=== PATIENT | male | born 1940 | race Caucasian/White ===

== ENCOUNTER → 2017-05-07 | Outpatient (CLI) | payer MEDICARE ==
--- NOTE | 2017-05-07 11:01 | PN ---
PROGRESS NOTE DATE OF SURGERY: 05/07/2017 A 76-year-old gentleman who had been followed in the sleep center for treatment of obstructive sleep apnea-hypopnea syndrome. He continued to use his CPAP equipment every night, replied that sometimes has leak from the mask. He is moving a lot during the night and sometimes his mask may go off the face. I checked patient's CPAP unit. Usage is 30 out of 30 nights for more than 4 hours. Average usage is 8.8 hours. Pressure 12 cm of water. Leak is 53 L per minute. Apnea- hypopnea index 2.9, which is in normal range. [place] Sleepiness Scale today is 4. MEDICATIONS: Losartan, omeprazole, amlodipine, simvastatin, latanoprost, vitamins, Advil, Aleve, Flonase. PHYSICAL EXAMINATION: GENERAL: During physical exam, patient in no distress. VITAL SIGNS BP148/76 , HR 82, RR 16, height 5 feet 11-1/2 inches, weight 226, BMI 31.0, temperature 98.0, oxygen saturation at room air 96%. HEENT PERRLA, EOMI, evaluation of oropharynx showed extremely low position of soft palate. Neck Supple, no JVD. Thyroid is not palpable. LUNGS Clear to percussion and to auscultation. Good air exchange. No wheezing or rhonchi. HEART S1, S2 regular. No murmurs, gallops, or rubs. ABDOMEN Slightly obese. EXTREMITIES No clubbing or cyanosis. VP GENETIC Awake, alert, and oriented X3. Cranial nerves 2 to 7 intact. There is no fasciculation or atrophy. noted. No focal deficits observed. IMPRESSION: 1. Obstructive sleep apnea-hypopnea syndrome. Patient demonstrated 100% compliance with treatment, benefitting from treatment. 2. Mild obesity, body mass index 31. 3. Hypertension. 4. Hyperlipidemia. 5. History of sinusitis. 6. History of acid reflux. 7. History of glaucoma with left eye. The patient has a leak from his nasal pillows according to machine reading. I checked the nasal pillows. It looks like that the fitting is good. PLAN: 1. Continue treatment with CPAP every night for the whole night. 2. Prescription for CPAP supplies including nasal pillow mask, tube filters and I will prescribe also trial with a chinstrap. 3. We could try different styles of the nasal pillow in different sizes. 4. No driving if feeling any sleepiness. Thank you very much for allowing me to participate in the management of your patient. Sincerely, Juancho Florian MD, PhD, FAASM Diplomat of [place] [employer] [place] [employer] [facility] [place] MMODL / CURT: [id number] /
== END | disposition home or self-care (01) ==
LOC: SLEEP 09:53
PROVIDERS: ATTEND Internal Medicine
DX: G47.33 Obstructive sleep apnea (adult) (pediatric) (principal); E66.9 Obesity, unspecified; I10 Essential (primary) hypertension; Z68.31 Body mass index [BMI] 31.0-31.9, adult; Z79.1 Long term (current) use of non-steroidal anti-inflammatories (NSAID); Z79.899 Other long term (current) drug therapy

== ENCOUNTER → 2018-06-03 | Outpatient (CLI) | payer MEDICARE ==
--- NOTE | 2018-06-03 10:53 | SFUN ---
SLEEP CENTER FOLLOW UP NOTE DATE OF SERVICE: 06/03/2018 This 77-year-old gentleman has been followed in sleep center for treatment of obstructive sleep apnea-hypopnea syndrome. The patient successfully continued to use his CPAP equipment without significant problems related to mask, humidification or pressure. [place] Sleepiness Scale today is 7. Previous visit 1 year ago. I checked his CPAP unit. CPAP pressure is 12 cm of water. Usage is 100% of the time more than 4 hours, average 8.6 hours per night. Leak up to 32 L/minute, which is borderline. Apnea-hypopnea index only 2.5, which is perfect. Leak during the previous visit was high significantly. MEDICATIONS: Medications are the same, losartan, omeprazole amlodipine, simvastatin, latanoprost, Aleve, Advil, Flonase, vitamin supplements. PHYSICAL EXAMINATION: During physical exam, patient in no distress. VITAL SIGNS: BP 138/72, HR 77, RR 18, height 5 feet 11-1/2 inches, weight 229.8, three pounds more than 1 year ago, body mass index 31.4, temperature 97.2, oxygen saturation room air 95%. HEENT: PERRLA, EOMI. Oropharynx extremely low position of soft palate. NECK: Supple, no JVD. Thyroid is not palpable. LUNGS: Clear to percussion and to auscultation. Good air exchange. No wheezing or rhonchi. HEART: S1, S2 regular. No murmurs, gallops, or rubs. ABDOMEN: Slightly obese. EXTREMITIES: No clubbing or cyanosis. JEWELRY MAKER: Awake, alert, and oriented X3. Cranial nerves 2 to 7 intact. There is no fasciculation or atrophy. noted. No focal deficits observed. IMPRESSION: 1. Obstructive sleep apnea-hypopnea syndrome. The patient demonstrated 100% compliance with treatment benefitting from treatment. 2. Hypertension. 3. Mild obesity. 4. Hyperlipidemia. 5. History of acid reflux. 6. History of sinusitis. 7. History of glaucoma on the left side. PLAN: 1. Continue treatment with CPAP at night for the whole night. 2. Watching and losing weight. 3. Sleep hygiene with regular time in bed for at least 7-1/2 or 8 hours. 4. No driving if feeling any sleepiness. 5. Will maintain prescription for all necessary CPAP supplies including mask, tube, filters. 6. Follow-up visit in one year. Thank you very much for allowing me to participate in management of your patient. Sincerely, Juancho Florian MD, PhD, FAASM Diplomat of [place] [employer] Commercial Correspondent of [facility] [place] MMODL / CURT: [id number] /
== END | disposition home or self-care (01) ==
LOC: SLEEP 09:50
PROVIDERS: ATTEND Internal Medicine
DX: G47.33 Obstructive sleep apnea (adult) (pediatric) (principal); I10 Essential (primary) hypertension; E66.9 Obesity, unspecified; E78.5 Hyperlipidemia, unspecified; Z68.31 Body mass index [BMI] 31.0-31.9, adult; Z87.19 Personal history of other diseases of the digestive system; Z87.09 Personal history of other diseases of the respiratory system; Z86.69 Personal history of other diseases of the nervous system and sense organs; Z99.89 Dependence on other enabling machines and devices; Z79.51 Long term (current) use of inhaled steroids; Z79.1 Long term (current) use of non-steroidal anti-inflammatories (NSAID); Z79.899 Other long term (current) drug therapy

== ENCOUNTER → 2019-06-16 | Outpatient (CLI) | payer MEDICARE ==
--- NOTE | 2019-06-16 11:43 | SFUN ---
SLEEP CENTER FOLLOW UP NOTE DATE OF SERVICE: 06/16/2019 This 78-year-old gentleman had been followed in sleep center for treatment of obstructive sleep apnea-hypopnea syndrome. The patient continued to use his CPAP equipment every night for the whole night. According to his , he does not snore with the machine. [place] Sleepiness Scale today is 3. The patient mentioned that when he wakes up in the morning, he feels that his mouth is dry. I checked CPAP unit. CPAP pressure is 12 cm of water. Usage is 100% of nights more than 4 hours with average usage 9 hours per night. Leak is slightly high for the nasal mask 34 L/minute. Most probably may indicate possibility that patient opens his mouth. Apnea-hypopnea index is absolutely normal 2.3. MEDICATIONS: Losartan, omeprazole, amlodipine, latanoprost, simvastatin, Advil, Aleve, Flonase, vitamin supplements. PHYSICAL EXAMINATION: During physical exam, patient in no distress. VITAL SIGNS: BP 158/77, HR 77, RR 18, height 5 feet 11 inches, weight 232.8, which is about 2 pounds more than last year, temperature 98.2, oxygen saturation on room air 95%. HEENT: PERRLA, EOMI. Oropharynx extremely low soft palate. Mallampati 4. NECK: Supple, no JVD. Thyroid is not palpable. LUNGS: Clear to percussion and to auscultation. Good air exchange. No wheezing or rhonchi. HEART: S1, S2 regular. No murmurs, gallops, or rubs. ABDOMEN: Soft and nontender. Bowel sounds are present. No organomegaly appreciated. EXTREMITIES: No clubbing or cyanosis. METAL ENGINEERING PROCESS WORKER: Awake, alert, and oriented X3. Cranial nerves 2 to 7 intact. There is no fasciculation or atrophy. noted. No focal deficits observed. IMPRESSION: 1. Obstructive sleep apnea-hypopnea syndrome, on full control with CPAP. Patient demonstrated 100% compliance with treatment benefitting from treatment. 2. Slightly high leak documented by reading from the machine, possibly indicate opening mouth. Patient also feels dry mouth in the morning. 3. Hypertension. 4. Hyperlipidemia. 5. Mild obesity. 6. History of acid reflux. 7. History of sinusitis. 8. History of glaucoma on the left side. PLAN: 1. Patient will continue to use CPAP equipment every night for the whole night with the same level of pressure. 2. Prescription for chin strap. 3. I will maintain all necessary prescriptions for CPAP supplies including mask, tube, filters. 4. Losing weight. 5. Sleep hygiene with regular time in bed for at least 7-1/2 hours. 6. No driving if feeling any sleepiness. 7. Follow-up visit in 1 year or earlier if patient has any problems. Thank you very much for allowing me to participate in management of your patient. Sincerely, Juancho Florian MD, PhD, FAASM Diplomat of [place] [employer] [employer] Medicine Dismantler of [facility] [place] MMODL / IJN: [id number] /
== END | disposition home or self-care (01) ==
LOC: SLEEP 10:45
PROVIDERS: ATTEND Internal Medicine
DX: G47.33 Obstructive sleep apnea (adult) (pediatric) (principal); I10 Essential (primary) hypertension; E78.5 Hyperlipidemia, unspecified; E66.9 Obesity, unspecified; Z87.19 Personal history of other diseases of the digestive system; Z87.09 Personal history of other diseases of the respiratory system; Z86.69 Personal history of other diseases of the nervous system and sense organs; Z99.89 Dependence on other enabling machines and devices; Z79.1 Long term (current) use of non-steroidal anti-inflammatories (NSAID); Z79.51 Long term (current) use of inhaled steroids; Z79.899 Other long term (current) drug therapy

== ENCOUNTER → 2020-06-28 | Outpatient (CLI) | payer MEDICARE ==
--- NOTE | 2020-06-29 00:52 | SFUN ---
SLEEP CENTER FOLLOW UP NOTE DATE OF SERVICE: 06/28/2020 This 79-year-old gentleman who has been followed in Sleep Center for treatment of obstructive sleep apnea-hypopnea syndrome. The patient successfully continuing to use his CPAP equipment every night for the whole night. Sleeps quite well with the machine. [place] Sleepiness Scale is only 3. I checked CPAP unit. CPAP pressure is 12 cm of water. Usage is 30 out of 30 nights for more than 4 hours. Average usage 8.7 hours per night. Leak is 54 L/minute. Patient explained that sometimes his mask move out slightly, but at the same time, apnea- hypopnea index is perfect only 2.1. MEDICATIONS: Simvastatin 20 mg once a day, omeprazole 40 mg once a day, 20 mg once a day, amlodipine 10 mg once a day, latanoprost 2.5 mL ophthalmic solution, gabapentin 300 mg once a day. PHYSICAL EXAMINATION: GENERAL: Patient in no distress. VITAL SIGNS: BP 158/75, HR 83, RR 15, height 6 feet and 1/4 inch, weight 230 pounds BMI 31.0, temperature 98.2, oxygen saturation at room air 93%. HEENT: PERRLA, EOMI. Oropharynx extremely low position of soft palate. Mallampati 4. NECK: Supple, no JVD. Thyroid is not palpable. LUNGS: Clear to percussion and to auscultation. Good air exchange. No wheezing or rhonchi. HEART: S1, S2 regular. No murmurs, gallops, or rubs. ABDOMEN: Slightly obese. EXTREMITIES: No clubbing or cyanosis. FIG CAPRIFIER: Awake, alert, and oriented X3. Cranial nerves 2 to 7 intact. There is no fasciculation or atrophy. noted. No focal deficits observed. IMPRESSION: 1. Obstructive sleep apnea-hypopnea syndrome. Patient demonstrated 100% compliance with treatment, benefitting from treatment. 2. Hypertension. 3. Hyperlipidemia. 4. Mild obesity. 5. Acid reflux. 6. History of sinusitis. 7. History of glaucoma on the left side. PLAN: 1. Patient will continue to use PAP equipment every night for the whole night. 2. Sleep hygiene with regular time in bed for at least 7-1/2 to 8 hours. 3. Precautions related to driving. No driving if feeling sleepiness. 4. I will maintain all necessary prescription for PAP supplies including mask, tube, filters. 5. Watching weight. 6. No driving if feeling sleepiness. 7. Follow-up visit in 6 months or earlier if patient has any problems. Thank you very much for allowing me to participate in management of your patient. Sincerely, Juancho Florian MD, PhD, FAASM Diplomat of [place] [employer] [employer] Internal Medicine Business Operations Director of [facility] [place] MMODL / IJN: [id number] /
== END | disposition home or self-care (01) ==
LOC: SLEEP 15:45
PROVIDERS: ATTEND Internal Medicine Critical Care Medicine
DX: G47.33 Obstructive sleep apnea (adult) (pediatric) (principal); I10 Essential (primary) hypertension; E78.5 Hyperlipidemia, unspecified; E66.9 Obesity, unspecified; K21.9 Gastro-esophageal reflux disease without esophagitis; Z87.09 Personal history of other diseases of the respiratory system; Z99.89 Dependence on other enabling machines and devices; Z79.899 Other long term (current) drug therapy; Z86.69 Personal history of other diseases of the nervous system and sense organs

== ENCOUNTER → 2021-01-03 | Outpatient (CLI) | payer MEDICARE ==
--- NOTE | 2021-01-03 19:46 | SFUN ---
SLEEP CENTER FOLLOW UP NOTE DATE OF SERVICE: 01/03/2021 This 80-year-old gentleman has been followed in Sleep Center for treatment of obstructive sleep apnea-hypopnea syndrome. The patient continues to use his CPAP equipment every night. According to his , he does not snore. He sleeps well. Sometimes she hears some high-pitched noise while the patient is using CPAP equipment, possibly just exhalation port, which could be a normal part of the treatment. [place] Sleepiness Scale is 3, which is totally normal. I checked his CPAP unit. CPAP pressure is 12 cm of water. Usage is 30/30 nights, average 8.4 hours per night. Leak is 50 L/minute. Apnea-hypopnea index is 2.0, which is normal. The patient is using a nasal mask and possibly opens his mouth during sleep. He tried a chinstrap before and does not want to use it; feels more comfortable without that. MEDICATIONS: 1. Simvastatin 20 mg once a day. 2. Omeprazole 40 mg once a day. 3. Amlodipine 10 mg once a day. 4. Latanoprost 2.5 mL ophthalmic solution. 5. Gabapentin 300 mg once a day. 6. Vitamins. 7. Advil as necessary. PHYSICAL EXAMINATION: GENERAL: A pleasant patient in no distress. VITAL SIGNS: BP 153/78, HR 64, RR 15, height 6 feet 1 inch, weight 229.6, body mass index 30.2, temperature 98.4, oxygen saturation at room air 95%. HEENT: PERRLA, EOMI. Evaluation of oropharynx showed tongue protrudes midline. Extremely low position of soft palate. Mallampati IV. NECK: Supple. No JVD. Thyroid is not palpable. LUNGS: Clear to percussion and to auscultation. Good air exchange. No wheezing or rhonchi. HEART: S1, S2 regular. No murmurs, gallops or rubs. ABDOMEN: Obese. EXTREMITIES: No clubbing or cyanosis. MARINE CHRONOMETER ASSEMBLER: Awake, alert, and oriented X3. Cranial nerves 2 to 7 intact. There is no fasciculation or atrophy. noted. No focal deficits observed. IMPRESSION: 1. Obstructive sleep apnea-hypopnea syndrome. The patient continues to use his CPAP equipment 100% of the time. Normal respiration on CPAP. Leak increased, but the patient prefers not to use a chinstrap, and it does not influence his respiration. 2. Hypertension. 3. Hyperlipidemia. 4. Mild obesity. 5. Acid reflux. 6. History of sinusitis. 7. History of glaucoma on the left side. PLAN: 1. Patient will continue to use PAP equipment every night for the whole night. 2. Sleep hygiene with regular time in bed for at least 7-1/2 to 8 hours. 3. Precautions related to driving. No driving if feeling sleepiness. 4. I will maintain all necessary prescription for PAP supplies including mask, tube, filters. 5. Watching weight. 6. Follow-up visit in 6 months or earlier if patient has any problems. Thank you very much for allowing me to participate in the management of your patient. Sincerely, Juancho Florian MD, PhD, FAASM Diplomat of [place] [employer] [employer] Jet [employer]ade Polisher of [facility] [place] MMODL / ARIELN: [id number] /
== END ==
LOC: SLEEP 14:21
PROVIDERS: ATTEND Internal Medicine
DX: G47.33 Obstructive sleep apnea (adult) (pediatric) (principal); I10 Essential (primary) hypertension; E78.5 Hyperlipidemia, unspecified; E66.9 Obesity, unspecified; K21.9 Gastro-esophageal reflux disease without esophagitis; Z86.69 Personal history of other diseases of the nervous system and sense organs; Z87.09 Personal history of other diseases of the respiratory system; Z79.899 Other long term (current) drug therapy; Z68.30 Body mass index [BMI] 30.0-30.9, adult

== ENCOUNTER 2021-04-07 09:59 | Inpatient (IN) | payer MEDICARE ==
[2021-04-07] MEDS ORDERED: SODIUM CHLORIDE 0.9% 1,000 ML IV STA (11:05)
--- NOTE | 2021-04-07 11:10 | ED ---
Weakness HPI - General Chief complaint: Weakness Stated complaint: weak/light headed Time Seen by Provider: 04/07/21 10:23 Source: patient Mode of arrival: ambulatory Limitations: no limitations - History of Present Illness Initial comments: The patient is an 80-year-old male with past history of hypertension and hyperlipidemia who presents to the emergency department with complaint of weakness. He does have a friend staying with him. He states that last night he began having the chills and was have difficulty sleeping all night. Friend noted that when he awoke this morning he was having difficulties ambulating. He was so weak that he was unable to get himself off the toilet. He called family who brought him to the emergency room for further evaluation. Admits to mild headache. No visual changes. No recent head trauma. Denies any neck pain or stiffness. Does admit to a mild cough and mild shortness of breath. No chest pain. No exposure to Covid. He denies any fevers. No nausea or vomiting. Denies any abdominal pain. No changes in his bowel or bladder habits. No other alleviating, precipitating or modifying factors - Related Data Home Medications Medication Instructions Recorded Confirmed Fluticasone Nasal [place] [Flonase 1 spr EA NOSTRIL DAILY PRN 04/07/21 04/07/21 Nasal [place]] Gabapentin [Neurontin] 400 mg PO BID 04/07/21 04/07/21 Glucosamine/Chondr Magana A Sod [Osteo 1 tab PO DAILY 04/07/21 04/07/21 Bi-Flex [place]] Ibuprofen [Advil] 200 mg PO Q8HR PRN 04/07/21 04/07/21 Latanoprost [Xalatan 0.005%] 1 drop LEFT EYE HS 04/07/21 04/07/21 Montelukast [Singulair] 10 mg PO HS 04/07/21 04/07/21 Multivitamins, Thera [Multivitamin 1 tab PO DAILY 04/07/21 04/07/21 (formulary)] Naproxen Sodium [Aleve] 220 mg PO DAILY 04/07/21 04/07/21 Olmesartan Medoxomil 20 mg PO DAILY 04/07/21 04/07/21 [place]-3 Fatty Acids [[place]-3] 1,000 mg PO DAILY 04/07/21 04/07/21 Omeprazole 40 mg PO DAILY 04/07/21 04/07/21 Simvastatin [Zocor] 20 mg PO HS 04/07/21 04/07/21 amLODIPine [Norvasc] 10 mg PO DAILY 04/07/21 04/07/21 Allergies Allergy/AdvReac Type Severity Reaction Status Date / Time Penicillins Allergy Unknown Verified 04/07/21 13:17 Sulfa (Sulfonamide Allergy Unknown Verified 04/07/21 13:17 Antibiotics) Review of Systems ROS Statement: Those systems with pertinent positive or pertinent negative responses have been documented in the HPI. ROS Other: All systems not noted in ROS Statement are negative. Past Medical History Past Medical History: Hyperlipidemia, Hypertension History of Any Multi-Drug Resistant Organisms: None Reported Past Surgical History: No Surgical Hx Reported Past Psychological History: No Psychological Hx Reported Smoking Status: Former smoker Past Alcohol Use History: Occasional Past Drug Use History: None Reported General Exam Limitations: no limitations Course Vital Signs 04/07/21 04/07/21 04/07/21 10:11 11:30 12:00 Temperature 98.2 F Pulse Rate 92 80 74 Respiratory 18 22 22 Rate Blood Pressure 120/71 123/80 123/80 O2 Sat by Pulse 94 L 97 96 Oximetry 04/07/21 04/07/21 04/07/21 12:30 13:00 13:17 Temperature Pulse Rate 75 72 78 Respiratory 18 20 18 Rate Blood Pressure 118/69 118/69 129/72 O2 Sat by Pulse 94 L 93 L Oximetry 04/07/21 13:30 Temperature Pulse Rate 73 Respiratory 20 Rate Blood Pressure 129/72 O2 Sat by Pulse 97 Oximetry EKG Findings - EKG Comments: EKG Findings:: EKG demonstrates normal sinus rhythm with a ventricular rate of 82. When necessary interval 174. QRS 90. QTC of 411. No acute ST segment elevations. Minimal ST depression in V4 through V6 Medical Decision Making - Medical Decision Making Upon arrival patient is placed into room 1. There history of physical exam was performed. IV access is established the patient is given a liter bolus of normal saline. Laboratory studies were conducted. Covid swab is performed. Patient went for a chest x-ray. Laboratory studies are reviewed and white count is 33,000. D-dimer 1.17. Creatinine 1.3 with an unknown baseline. Urinalysis is negative. Covid not detected. Chest x-ray demonstrates mild cardiomegaly and mild pulmonary vascular congestion. Linear opacities in the lung bases, developing infiltrate cannot be excluded. On physical exam the patient does have redness and swelling to the right lower extremity for which the patient states he did not previously noticed. Ultrasound is performed which failed to demonstrate DVT. Patient is given a dose of Rocephin and azithromycin for possible community-acquired pneumonia and right lower extremity cellulitis. He is sent back for CT of his chest due to his elevated d-dimer which demonstrates no evidence of a pulmonary embolism. Findings suggestive of an interstitial lung disease. Ground glass nodularity in the right upper lobe. These results are discussed with the patient. Recommend admission due to the leukocytosis for which the patient did agree to. I spoke with Dr. Parnell who wants a covid PCR. Patient remained in stable condition awaiting transfer to floor - Lab Data Result diagrams: 04/07/21 11:10 04/07/21 11:10 Lab Results 04/07/21 04/07/21 04/07/21 Range/Units 11:10 11:10 11:10 WBC 33.0 H (3.8-10.6) k/uL RBC 4.50 (4.30-5.90) m/uL Hgb 15.9 (13.0-17.5) gm/dL Hct 44.1 (39.0-53.0) % MCV 98.0 (80.0-100.0) fL MCH 35.3 H (25.0-35.0) pg MCHC 36.0 (31.0-37.0) g/dL RDW 13.2 (11.5-15.5) % Plt Count 284 (150-450) k/uL MPV 7.6 Neutrophils % 89 % Lymphocytes % 4 % Monocytes % 5 % Eosinophils % 1 % Basophils % 0 % Neutrophils # 29.4 H (1.3-7.7) k/uL Lymphocytes # 1.2 (1.0-4.8) k/uL Monocytes # 1.7 H (0-1.0) k/uL Eosinophils # 0.2 (0-0.7) k/uL Basophils # 0.1 (0-0.2) k/uL PT 10.6 (9.0-12.0) sec INR 1.0 (<1.2) APTT 24.3 (22.0-30.0) sec D-Dimer 1.17 H (<0.60) mg/L FEU Sodium (137-145) mmol/L Potassium (3.5-5.1) mmol/L Chloride (98-107) mmol/L Carbon Dioxide (22-30) mmol/L Anion Gap mmol/L BUN (9-20) mg/dL Creatinine (0.66-1.25) mg/dL Est GFR (CKD-EPI)AfAm (>60 ml/min/1.73 sqM) Est GFR (CKD-EPI)NonAf (>60 ml/min/1.73 sqM) Glucose (74-99) mg/dL Plasma Lactic Acid Andrey (0.7-2.0) mmol/L Calcium (8.4-10.2) mg/dL Magnesium (1.6-2.3) mg/dL Total Bilirubin (0.2-1.3) mg/dL AST (17-59) U/L ALT (4-49) U/L Alkaline Phosphatase (38-126) U/L Creatine Kinase (55-170) U/L Troponin I (0.000-0.034) ng/mL NT-Pro-B Natriuret Pep pg/mL Total Protein (6.3-8.2) g/dL Albumin (3.5-5.0) g/dL Urine Color Urine Appearance (Clear) Urine pH (5.0-8.0) Ur Specific [place] (1.001-1.035) Urine Protein (Negative) Urine Glucose (UA) (Negative) Urine Ketones (Negative) Urine Blood (Negative) Urine Nitrite (Negative) Urine Bilirubin (Negative) Urine Urobilinogen (<2.0) mg/dL Ur Leukocyte Esterase (Negative) Coronavirus (PCR) Not Detected (Not Detectd) 04/07/21 04/07/21 04/07/21 Range/Units 11:10 11:10 11:10 WBC (3.8-10.6) k/uL RBC (4.30-5.90) m/uL Hgb (13.0-17.5) gm/dL Hct (39.0-53.0) % MCV (80.0-100.0) fL MCH (25.0-35.0) pg MCHC (31.0-37.0) g/dL RDW (11.5-15.5) % Plt Count (150-450) k/uL MPV Neutrophils % % Lymphocytes % % Monocytes % % Eosinophils % % Basophils % % Neutrophils # (1.3-7.7) k/uL Lymphocytes # (1.0-4.8) k/uL Monocytes # (0-1.0) k/uL Eosinophils # (0-0.7) k/uL Basophils # (0-0.2) k/uL PT (9.0-12.0) sec INR (<1.2) APTT (22.0-30.0) sec D-Dimer (<0.60) mg/L FEU Sodium 136 L (137-145) mmol/L Potassium 4.6 (3.5-5.1) mmol/L Chloride 103 (98-107) mmol/L Carbon Dioxide 23 (22-30) mmol/L Anion Gap 10 mmol/L BUN 18 (9-20) mg/dL Creatinine 1.30 H (0.66-1.25) mg/dL Est GFR (CKD-EPI)AfAm 60 (>60 ml/min/1.73 sqM) Est GFR (CKD-EPI)NonAf 52 (>60 ml/min/1.73 sqM) Glucose 118 H (74-99) mg/dL Plasma Lactic Acid Andrey 1.8 (0.7-2.0) mmol/L Calcium 9.6 (8.4-10.2) mg/dL Magnesium 1.9 (1.6-2.3) mg/dL Total Bilirubin 0.8 (0.2-1.3) mg/dL AST 45 (17-59) U/L ALT 33 (4-49) U/L Alkaline Phosphatase 105 (38-126) U/L Creatine Kinase 174 H (55-170) U/L Troponin I (0.000-0.034) ng/mL NT-Pro-B Natriuret Pep pg/mL Total Protein 6.9 (6.3-8.2) g/dL Albumin 4.1 (3.5-5.0) g/dL Urine Color Yellow Urine Appearance Clear (Clear) Urine pH 6.5 (5.0-8.0) Ur Specific [place] 1.019 (1.001-1.035) Urine Protein Negative (Negative) Urine Glucose (UA) Negative (Negative) Urine Ketones Negative (Negative) Urine Blood Negative (Negative) Urine Nitrite Negative (Negative) Urine Bilirubin Negative (Negative) Urine Urobilinogen <2.0 (<2.0) mg/dL Ur Leukocyte Esterase Negative (Negative) Coronavirus (PCR) (Not Detectd) 04/07/21 04/07/21 Range/Units 11:10 11:10 WBC (3.8-10.6) k/uL RBC (4.30-5.90) m/uL Hgb (13.0-17.5) gm/dL Hct (39.0-53.0) % MCV (80.0-100.0) fL MCH (25.0-35.0) pg MCHC (31.0-37.0) g/dL RDW (11.5-15.5) % Plt Count (150-450) k/uL MPV Neutrophils % % Lymphocytes % % Monocytes % % Eosinophils % % Basophils % % Neutrophils # (1.3-7.7) k/uL Lymphocytes # (1.0-4.8) k/uL Monocytes # (0-1.0) k/uL Eosinophils # (0-0.7) k/uL Basophils # (0-0.2) k/uL PT (9.0-12.0) sec INR (<1.2) APTT (22.0-30.0) sec D-Dimer (<0.60) mg/L FEU Sodium (137-145) mmol/L Potassium (3.5-5.1) mmol/L Chloride (98-107) mmol/L Carbon Dioxide (22-30) mmol/L Anion Gap mmol/L BUN (9-20) mg/dL Creatinine (0.66-1.25) mg/dL Est GFR (CKD-EPI)AfAm (>60 ml/min/1.73 sqM) Est GFR (CKD-EPI)NonAf (>60 ml/min/1.73 sqM) Glucose (74-99) mg/dL Plasma Lactic Acid Andrey (0.7-2.0) mmol/L Calcium (8.4-10.2) mg/dL Magnesium (1.6-2.3) mg/dL Total Bilirubin (0.2-1.3) mg/dL AST (17-59) U/L ALT (4-49) U/L Alkaline Phosphatase (38-126) U/L Creatine Kinase (55-170) U/L Troponin I 0.023 (0.000-0.034) ng/mL NT-Pro-B Natriuret Pep 380 pg/mL Total Protein (6.3-8.2) g/dL Albumin (3.5-5.0) g/dL Urine Color Urine Appearance (Clear) Urine pH (5.0-8.0) Ur Specific [place] (1.001-1.035) Urine Protein (Negative) Urine Glucose (UA) (Negative) Urine Ketones (Negative) Urine Blood (Negative) Urine Nitrite (Negative) Urine Bilirubin (Negative) Urine Urobilinogen (<2.0) mg/dL Ur Leukocyte Esterase (Negative) Coronavirus (PCR) (Not Detectd) Disposition Clinical Impression: Acute respiratory insufficiency, CAP (community acquired pneumonia), Leukocytosis Disposition: [facility] Condition: Stable Is patient prescribed a controlled substance at d/c from ED?: No Decision to Admit Reason: Admit from EC Decision Date: 04/07/21 Decision Time: 14:20
[2021-04-07 11:23] LABS: Basophils # (A) 0.1 k/uL (0-0.2); Basophils % (A) 0 %; Eosinophils # (A) 0.2 k/uL (0-0.7); Eosinophils % (A) 1 %; HCT 44.1 % (39.0-53.0); HGB 15.9 gm/dL (13.0-17.5); Lymphocytes # (A) 1.2 k/uL (1.0-4.8); Lymphocytes % (A) 4 %; MCH 35.3 pg (25.0-35.0); Mean Platelet Volume 7.6; Monocytes # (A) 1.7 k/uL (0-1.0); Monocytes % (A) 5 %; Neutrophils # (A) 29.4 k/uL (1.3-7.7); Neutrophils % (A) 89 %; Platelet Count 284 k/uL (150-450); RDW 13.2 % (11.5-15.5)
[2021-04-07 11:33] LABS: Albumin 4.1 g/dL (3.5-5.0); Calcium 9.6 mg/dL (8.4-10.2); Magnesium 1.9 mg/dL (1.6-2.3); Potassium 4.6 mmol/L (3.5-5.1); Total Bilirubin 0.8 mg/dL (0.2-1.3); Total Protein 6.9 g/dL (6.3-8.2)
[2021-04-07 11:37] LABS: Partial Thromboplastin Time 24.3 sec (22.0-30.0); Prothrombin Time 10.6 sec (9.0-12.0)
--- NOTE | 2021-04-07 12:12 | XR ---
EXAMINATION TYPE: XR chest 2V DATE OF EXAM: 04/07/2021 COMPARISON: NONE HISTORY: 80 years Male. STUDY INDICATION GIVEN: Weakness . TECHNIQUE: PA and lateral chest radiographs FINDINGS AND IMPRESSION: There is mild cardiomegaly and mild pulmonary vascular congestion. Linear opacities in the lung bases seen likely on the basis of atelectasis though a developing infilt rate cannot be entirely excluded. No pneumothorax or pleural effusion seen. Generalized osteopenia. No acute osseous abnormality.
--- NOTE | 2021-04-07 12:58 | US ---
EXAMINATION TYPE: US venous doppler duplex LE RT DATE OF EXAM: 04/07/2021 11:56 AM COMPARISON: NONE CLINICAL HISTORY: swelling, redness. EC patient with ankle edema and skin redness noted today. SIDE PERFORMED: Right TECHNIQUE: The lower extremity deep venous system is examined utilizing real time linear array sonog ana with graded compression, doppler sonography and color-flow sonography. VESSELS IMAGED: Common Femoral Vein Deep Femoral Vein Femoral Vein Popliteal Vein Proximal Calf Veins Right Leg: Negative for DVT. Ankle edema channels are noted. Right groin lymph node is imaged = 3.0 x 1.6 x 0.9cm. IMPRESSION: 1. NO SONOGRAPHIC EVIDENCE OF DEEP VEIN THROMBOSIS IN THE RIGHT LOWER EXTREMITY. 2. PROMINENT LYMPH NODE IN THE RIGHT GROIN LIKELY REACTIVE, CORRELATE CLINICALLY. 3. SOFT TISSUE EDEMA POSTERIOR TO THE ANKLE JOINT. CORRELATE CLINICALLY FOR SOFT TISSUE INFECTION.
[2021-04-07] MEDS ORDERED: cefTRIAXone IN SWFI 1,000 MG/10 ML SYRINGE IVP STA (13:15)
[2021-04-07] MEDS ORDERED: AZITHROMYCIN 500 MG TAB PO STA (13:15)
[2021-04-07 13:40] LABS: Appearance,Urine Clear (Clear); Bilirubin,Urine Negative (Negative); Blood,Urine Negative (Negative); Color,Urine Yellow; Glucose,Urine (UA) Negative (Negative); Ketones,Urine Negative (Negative); Leukocyte Esterase,Urine Negative (Negative); Nitrite,Urine Negative (Negative); PH, Urine 6.5 (5.0-8.0); Protein,Urine Negative (Negative); Specific Gravity,Urine 1.019 (1.001-1.035); Urobilinogen,Urine <2.0 mg/dL (<2.0)
--- NOTE | 2021-04-07 14:04 | CT ---
EXAMINATION TYPE: CT chest angio for PE DATE OF EXAM: 04/07/2021 12:59 PM COMPARISON: Limited comparison CT abdomen dated 09/06/2010 HISTORY: Elevated D-dimer CT DLP: 488.60 mGycm Automated exposure control for dose reduction was used. TECHNIQUE: CT angiogram chest for pulmonary embolism. Performed without and with IV Contrast, patient injected with 100 ml mL of Isovue 370. FINDINGS: Opacification of the main pulmonary trunk is adequate. No filling defects are seen in the pulmonary a rteries. There are subpleural peripheral honeycombing cystic reticular changes with septal thickening. There i s upper and lower lobe with lower lobe predominant bronchiectatic changes. 6 mm groundglass nodularit y is seen in the right upper lobe series 406 image 51 series 402 image 69. Mild pleural thickening in the left lower lobe series 406 image 120. There is an enlarged subcarinal lymph node measuring 2.4 x 1.4 cm. Multiple additional prominent lymp h nodes are seen in the mediastinum. No hilar lymphadenopathy identified. The heart is not enlarged. There is no pericardial effusion. The diameter of the main pulmonary arter y is approximately 3.5 cm. The intrathoracic aorta is normal in course and caliber. Multiple calcifications are seen in the gallbladder lumen. A small gastroesophageal hernia is noted. No aggressive osseous lesion seen. Degenerative changes are seen in the thoracic spine. IMPRESSION: 1. NO EVIDENCE OF ACUTE PULMONARY ARTERIAL EMBOLISM. MAIN PULMONARY ARTERY DIAMETER 3.5 CM SUGGESTS P ULMONARY ARTERIAL HYPERTENSION CORRELATE CLINICALLY. 2. 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 3. GROUNDGLASS NODULARITY IN THE RIGHT UPPER LOBE MEASURING 6 MM WITH LEFT LOWER LOBE PLEURAL THICKEN ING. ADDITION TO 2.4 X 1.4 CM MEDIASTINAL LYMPH NODE, MALIGNANCY CANNOT BE ENTIRELY RULED OUT. 4. GALLBLADDER CALCULI.
[2021-04-07] MEDS ORDERED: NALOXONE 0.4 MG/ML 1 ML VIAL IV PRN (14:22)
[2021-04-07] MEDS: SODIUM CHLORIDE 0.9% 1,000 ML IV SCH ×2 (14:25→23:40)
[2021-04-07] MEDS ORDERED: FLUTICASONE 50MCG/SPRAY NASAL 16GM EA NOSTRIL PRN (18:04)
[2021-04-07] MEDS ORDERED: IBUPROFEN 200 MG TAB PO PRN (18:04)
[2021-04-07] MEDS ORDERED: ALPRAZolam 0.25 MG TAB PO PRN (18:06)
[2021-04-07] MEDS ORDERED: ACETAMINOPHEN TAB 500 MG TAB PO PRN (18:06)
[2021-04-07] MEDS ORDERED: IPRATROPIUM-ALBUTEROL 3 ML NEB INHALATION PRN (18:06)
[2021-04-07] MEDS: IPRATROPIUM-ALBUTEROL 3 ML NEB INHALATION SCH (19:02)
--- NOTE | 2021-04-07 19:18 | HP ---
HISTORY AND PHYSICAL DATE OF SERVICE: 04/07/2021 CHIEF COMPLAINT: Shortness of breath and weakness and cough. HISTORY OF PRESENT ILLNESS: This 80-year-old gentleman with a past medical history of multiple medical problems, hyperlipidemia, hypertension, history of neuropathy, being followed by Dr. Unger in the outpatient setting, had had contact with some infected friends with respiratory infections recently. A friend from [place] is apparently staying and the patient and friend is up to date with Covid vaccines according to him and the patient is complaining of weakness and cough and sputum and some difficulty in ambulation. Patient came to [facility] and was found to have bilateral interstitial pneumonia, lower part, left more than the right, which was confirmed by CT scan. There is no evidence of any pulmonary embolism. Patient admitted for further evaluation and treatment. There is no history of fever, rigors or chills. No history of headache, loss of consciousness or seizures at this time. PAST MEDICAL HISTORY: History of hypertension, hyperlipidemia, history of peripheral neuropathy, history of nicotine dependence. MEDICATIONS: Home medications are Flonase, Aleve, Singulair, Advil, omega-3, multivitamins, Osteo Bi- Flex, omeprazole, Norvasc, Zocor, Xalatan, Neurontin. Doses are reviewed. ALLERGIES: PENICILLIN AND SULFA. FAMILY HISTORY: No history of heart disease or strokes in the family. SOCIAL HISTORY: Previous history of smoking. REVIEW OF SYSTEMS: ENT: Diminished vision. Diminished hearing. CARDIOVASCULAR: As mentioned earlier. RESPIRATORY: As mentioned earlier. GI no nausea or vomiting. : No dysuria. NERVOUS SYSTEM: As mentioned earlier. ALLERGY/IMMUNOLOGY: No asthma or hayfever. MUSCULOSKELETAL as mentioned earlier. HEMATOLOGY/ONCOLOGY: No history of anemia. ENDOCRINE: No diabetes or hypothyroidism. CONSTITUTIONAL: As mentioned earlier. DERMATOLOGY: Negative. RHEUMATOLOGY negative. PSYCHIATRY negative. PHYSICAL EXAMINATION: Alert and oriented times three. Pulse 74, blood pressure 139/71, respirations 16, temperature 98.2, pulse ox 97% on room air. HEENT: Conjunctivae normal. Oral mucosa moist. NECK is no jugular venous distention. No carotid bruit. No lymph node enlargement. CARDIOVASCULAR system: S1, S2 muffled. No S3, no S4. RESPIRATORY: Breath sounds diminished in the bases. Bilateral scattered rhonchi and basilar crackles. ABDOMEN: Soft, nontender. No mass palpable. LEGS: No edema. No swelling. NERVOUS SYSTEM: Higher functions as mentioned earlier. Moves all 4 limbs. No focal motor or sensory deficits. LYMPHATICS: No lymph nodes palpable in the neck, axillae or groin. SKIN: No ulcers, rashes or bleeding. JOINTS: No active deforming arthropathy. LABS: WBC 33, mostly neutrophils 29.4. D-dimer is 1.17. Sodium 136, creatinine is 1.30. ASSESSMENT: 1. Bilateral interstitial pneumonia possibly gram-negative possibly viral with Covid 19 test negative with possible sepsis present on admission. 2. Possible chronic obstructive pulmonary disease acute exacerbation. 3. Increased WBC possibly secondary to sepsis. 4. Monocytosis. 5. Elevated D-dimer without any evidence of pulmonary embolus. 6. Hyponatremia. 7. Increased creatinine with possibly chronic kidney disease stage 3. 8. Hypertension. 9. Hyperlipidemia. 10.History of peripheral neuropathy. 11.History of nicotine dependence. 12.FULL CODE. RECOMMENDATIONS AND DISCUSSION: In this 80-year-old gentleman who presented with multiple complex medical issues, we will monitor the patient closely. We will continue with empiric antibiotics bronchodilators. The Covid 19 test is negative. I would also recommend PCR testing also. Otherwise resume the rest of medication. DVT prophylaxis. Symptomatic treatment. Prognosis guarded because of multiple complex medical issues. Further recommendations to follow. A copy of this dictation is being forwarded to Dr. Unger who is the primary physician. MMSLYL / ARIELN: [id number] /
[2021-04-07] MEDS: HEPARIN SODIUM,PORCINE/PF 5,000 UNIT/0.5 ML SYRINGE SQ SCH (19:20)
[2021-04-07] MEDS: ATORVASTATIN 10 MG TAB PO SCH (19:20)
[2021-04-07] MEDS: GABAPENTIN 400 MG CAP PO SCH (19:20)
[2021-04-07] MEDS: MONTELUKAST 10 MG TAB PO SCH (19:20)
[2021-04-07] MEDS: LATANOPROST 0.005% OPHTH DROPS 2.5 ML BTL LEFT EYE SCH (21:03)
[2021-04-08] MEDS: GABAPENTIN 400 MG CAP PO SCH ×2 (08:50→21:36)
[2021-04-08] MEDS: NAPROXEN 250 MG TAB PO SCH (08:50)
[2021-04-08] MEDS: HEPARIN SODIUM,PORCINE/PF 5,000 UNIT/0.5 ML SYRINGE SQ SCH ×2 (08:50→21:36)
[2021-04-08] MEDS: PANTOPRAZOLE 40 MG TABLET PO SCH (08:50)
[2021-04-08] MEDS: amLODIPine 10 MG TAB PO SCH (08:50)
[2021-04-08] MEDS: SODIUM CHLORIDE 0.9% 1,000 ML IV SCH ×2 (08:51→16:41)
[2021-04-08] MEDS: MULTIVITAMINS, THERA 1 EACH TAB PO SCH (08:51)
[2021-04-08] MEDS: AZITHROMYCIN 500 MG TAB PO SCH (08:51)
[2021-04-08] MEDS: LOSARTAN 50 MG TAB PO SCH (08:51)
[2021-04-08 08:59] LABS: HGB 13.8 g/dL (13.0-17.0); MCH 33.4 pg (27.0-32.0); MCHC 33.7 g/dL (32.0-37.0); MCV 99.3 fL (80.0-97.0); Mean Platelet Volume 10.8 fL (9.5-12.2); Platelet Count 253 X 10*3/uL (140-440); RBC 4.13 X 10*6/uL (4.40-5.60); WBC 29.62 X 10*3/uL (4.50-10.00)
[2021-04-08] MEDS ORDERED: NON FORMULARY DRUG (Omega-3 Fatty Acids [Omega-3] 1,000 MG Capsule) PO SCH (09:00)
[2021-04-08] MEDS ORDERED: NON FORMULARY DRUG (Glucosamine/Chondr Su A Sod [Osteo Bi-Flex Caplet] 1 EACH Tablet) PO SCH (09:00)
[2021-04-08] MEDS: IPRATROPIUM-ALBUTEROL 3 ML NEB INHALATION SCH ×3 (09:20→20:26)
[2021-04-08 09:39] LABS: African American GFR (CKD) 65.8 (60.0-200.0); Anion Gap 7.5 mmol/L (4.00-12.00); BUN/Creat Ratio 13.33 Ratio (12.00-20.00); Calcium 8.8 mg/dL (8.7-10.3); Carbon Dioxide 23.5 mmol/L (21.6-31.8); Non-African American GFR(CKD) 56.8 (60.0-200.0); Potassium 4.3 mmol/L (3.5-5.5)
[2021-04-08 10:27] LABS: Basophils # (A) 0.11 X 10*3/uL (0.00-0.10); Basophils % (A) 0.4 %; Eosinophils # (A) 0.23 X 10*3/uL (0.04-0.35); Eosinophils % (A) 0.8 %; Lymphocytes # (A) 2.35 X 10*3/uL (0.90-5.00); Lymphocytes % (A) 7.9 %; Monocytes # (A) 2.77 X 10*3/uL (0.20-1.00); Monocytes % (A) 9.4 %; Neutrophils % (A) 80.6 %
--- NOTE | 2021-04-08 13:34 | P.CNPUL ---
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 He states that last night he began having some chills and he was having difficulties with sleep all night. His friend who stays with him walk him up and he found that the patient was having difficulties mobility because of his overall generalized weakness and for that reason was recommended for him to come into the emergency department. He has a mild cough which is of a chronic in nature. No significant sputum production. No chest pain. No exertional dyspnea. No exposure to COVID-19. The patient denied having any fever or chills. No abdominal pain. No nausea or vomiting. No cervix urgency. In emergency, the patient was worked up. The patient was found to be hemodynamically stable and he was afebrile. Room air pulse ox is above 90% and order of 97%. EKG showed a normal sinus rhythm. The patient had a white cell count of 33 with a hemoglobin of 15.9. Creatinine was abnormal at 1.3. Rest of the electrodes are within normal limits. Chest x-ray showed some chronic interstitial changes. This was followed up by a computed tomography scan of the chest that showed ILD involving the lung bases and had a peripheral distribution consistent with IPF. No previous CAT scans for comparison and the CAT scan of the chest was very much consistent with chronic ILD/IPF. DVT of the lower extremities were negative for pulmonary embolism. The d-dimer was at 1.1. The COVID-19 testing was negative. Influenza A and B were negative. RSV by PCR was negative. Urinalysis was negative. ProBNP level was 380. CPK was 174. Troponin was negative. The patient was started on antibiotics with Rocephin and Zithromax and the patient was hospitalized accordingly. Further evaluation. Currently is resting comfortably in bed on room air oxygen. Review of Systems Constitutional: Reports fatigue, Reports weakness Eyes: left loss of peripheral vision, left loss of vision, denies as per HPI, denies blurred vision, denies bulging eye, denies decreased vision, denies diplopia, denies discharge, denies dry eye, denies irritation, denies itching, denies pain, denies photophobia, denies tunnel vision/blind spots Ears: deny: decreased hearing, ear discharge, earache, tinnitus Ears, nose, mouth and throat: Denies headache, Denies sore throat Breasts: absent: as per HPI, gynecomastia Cardiovascular: Reports decreased exercise tolerance Respiratory: Reports cough Gastrointestinal: Reports as per HPI Genitourinary: Reports as per HPI Musculoskeletal: Reports as per HPI Musculoskeletal: absent: ankle pain, ankle stiffness, ankle swelling Integumentary: Reports as per HPI Neurological: Reports numbness, Reports paresthesias Psychiatric: Reports as per HPI Endocrine: Reports as per HPI, Reports fatigue Hematologic/Lymphatic: Reports as per HPI Past Medical History Past Medical History: Hyperlipidemia, Hypertension Additional Past Medical History / Comment(s): neuropathy, glaucoma and OA History of Any Multi-Drug Resistant Organisms: None Reported Past Surgical History: No Surgical Hx Reported Additional Past Surgical History / Comment(s): colonoscopy Past Psychological History: No Psychological Hx Reported Smoking Status: Former smoker (quit in 1972, 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, no alcoholism and no IVDA) Past Alcohol Use History: Occasional Past Drug Use History: None Reported Medications and Allergies Home Medications Medication Instructions Recorded Confirmed Type Fluticasone Nasal Sulligent [Flonase 1 spr EA NOSTRIL DAILY PRN 04/07/21 04/07/21 History Nasal Sulligent] Gabapentin [Neurontin] 400 mg PO BID 04/07/21 04/07/21 History Glucosamine/Chondr Magana A Sod [Osteo 1 tab PO DAILY 04/07/21 04/07/21 History Bi-Flex Caplet] Ibuprofen [Advil] 200 mg PO Q8HR PRN 04/07/21 04/07/21 History Latanoprost [Xalatan 0.005%] 1 drop LEFT EYE HS 04/07/21 04/07/21 History Montelukast [Singulair] 10 mg PO HS 04/07/21 04/07/21 History Multivitamins, Thera [Multivitamin 1 tab PO DAILY 04/07/21 04/07/21 History (formulary)] Naproxen Sodium [Aleve] 220 mg PO DAILY 04/07/21 04/07/21 History Olmesartan Medoxomil 20 mg PO DAILY 04/07/21 04/07/21 History Madison-3 Fatty Acids [Madison-3] 1,000 mg PO DAILY 04/07/21 04/07/21 History Omeprazole 40 mg PO DAILY 04/07/21 04/07/21 History Simvastatin [Zocor] 20 mg PO HS 04/07/21 04/07/21 History amLODIPine [Norvasc] 10 mg PO DAILY 04/07/21 04/07/21 History Allergies Allergy/AdvReac Type Severity Reaction Status Date / Time Penicillins Allergy Unknown Verified 04/07/21 13:17 Sulfa (Sulfonamide Allergy Unknown Verified 04/07/21 13:17 Antibiotics) Physical Exam Vitals: Vital Signs Temp Pulse Pulse Resp BP BP BP 04/08/21 09:33 112 H 04/08/21 09:20 124 H 04/08/21 08:30 117/70 04/08/21 07:32 98.3 F 113 H 16 101/61 04/08/21 00:34 99.0 F 73 18 116/64 04/07/21 19:14 70 04/07/21 19:13 99.1 F 81 17 132/65 04/07/21 19:02 72 04/07/21 17:10 74 16 139/71 04/07/21 16:50 98.2 F 04/07/21 16:30 70 18 125/64 04/07/21 16:00 65 19 127/67 04/07/21 15:30 68 22 127/67 04/07/21 14:30 71 25 H 128/69 04/07/21 13:30 73 20 129/72 04/07/21 13:17 78 18 129/72 04/07/21 13:00 72 20 118/69 04/07/21 12:30 75 18 118/69 04/07/21 12:00 74 22 123/80 04/07/21 11:30 80 22 123/80 Pulse Ox 04/08/21 09:33 04/08/21 09:20 04/08/21 08:30 04/08/21 07:32 93 L 04/08/21 00:34 93 L 04/07/21 19:14 04/07/21 19:13 94 L 04/07/21 19:02 04/07/21 17:10 96 04/07/21 16:50 04/07/21 16:30 96 04/07/21 16:00 94 L 04/07/21 15:30 94 L 04/07/21 14:30 97 04/07/21 13:30 97 04/07/21 13:17 04/07/21 13:00 93 L 04/07/21 12:30 94 L 04/07/21 12:00 96 04/07/21 11:30 97 Intake and Output 04/07/21 04/08/21 04/08/21 22:59 06:59 14:59 Intake Total 1040 180 Balance 1040 180 Intake: Intake, IV Titration 1040 Amount Sodium Chloride 0.9% 1, 1040 000 ml @ 130 mls/hr IV . Q7H42M [facility] Rx#:[id number] Oral 180 Other: Voiding Method Toilet # Voids 1 The patient appeared well nourished and normally developed. Vital signs as docum ented. Head exam is unremarkable. No scleral icterus or corneal arcus noted. Neck is without jugular venous distension, thyromegaly, or carotid bruits. Carotid upstrokes are brisk bilaterally. Lungs are diminished breath sound bilaterally and the patient has coarse Velcro crackles in lung bases consistent with ILD.. Cardiac exam reveals the PMI to be normally sized and situated. Rhythm is regular. First and second heart sounds normal. No murmurs, rubs or gallops. Abdominal exam reveals normal bowel sounds, no masses, no organomegaly and no aortic enlargement. Extremities are nonedematous and both femoral and pedal pulses are normal.Examination of the skin revealed no evidence of significant rashes, suspicious appearing nevi or other concerning lesions.Neurologically, the patient is awake and alert and the patient does not have any focal neurological deficit. Cranial nerves are essentially intact. Results - Laboratory Findings CBC and BMP: 04/08/21 05:42 04/08/21 05:42 PT/INR, D-dimer PT 10.6 sec (9.0-12.0) 04/07/21 11:10 INR 1.0 (<1.2) 04/07/21 11:10 D-Dimer 1.17 mg/L FEU (<0.60) H 04/07/21 11:10 Abnormal lab findings: Abnormal Labs 04/07/21 04/07/21 04/07/21 11:10 11:10 11:10 WBC 33.0 H RBC MCV MCH 35.3 H Immature Gran # Neutrophils # 29.4 H Monocytes # 1.7 H Basophils # D-Dimer 1.17 H Sodium 136 L Creatinine 1.30 H Est GFR (CKD-EPI)NonAf Glucose 118 H Creatine Kinase 174 H 04/08/21 04/08/21 05:42 05:42 WBC 29.62 H RBC 4.13 L MCV 99.3 H MCH 33.4 H Immature Gran # 0.26 H Neutrophils # 23.90 H Monocytes # 2.77 H Basophils # 0.11 H D-Dimer Sodium Creatinine Est GFR (CKD-EPI)NonAf 56.8 L Glucose 126 H Creatine Kinase - Diagnostic Findings Chest x-ray: image reviewed CT scan - chest: image reviewed Assessment and Plan Plan: 1 generalized weakness/leukocytosis, consider underlying infection/sepsis and the issues underlying further investigation. 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 3 chronic cough 4 leukocytosis 5 generalized weakness 6 hypertension 7 hyperlipidemia 8 peripheral neuropathy 9 glucoma Plan Discussed the CAT scan findings with the patient. High suspicion for underlying interstitial lung disease/IPF. Will need outpatient pulmonary function testing. Rest of the management of IPF or without an outpatient basis including the possibility of anti-fibrotic treatment regarding IPF. Monitor white cell count Monitor cultures Continue antibiotic coverage which is an empiric coverage for now till the possibility of an underlying sepsis ruled out Resume home medications We'll continue to follow.
--- NOTE | 2021-04-08 15:00 | PN ---
PROGRESS NOTE DATE OF SERVICE: 04/07/2021 This 80-year-old gentleman, admitted with shortness of breath and bilateral pneumonia with is being closely monitored. Patient is feeling tired and weak. The patient is on broad-spectrum IV antibiotics. The chest CTA did not show any acute pulmonary embolism. PAST MEDICAL HISTORY: Reviewed. REVIEW OF SYSTEMS: CARDIOVASCULAR system: As mentioned earlier. RESPIRATION: Cough, shortness of breath. GI: As mentioned earlier. : No dysuria. NERVOUS SYSTEMS: No numbness or weakness. MEDICATIONS: Reviewed and include: Tylenol, DuoNeb, Xanax, Norvasc, Lipitor, Zithromax, Rocephin, Neurontin, Advil, Xalatan, Cozaar, Singulair, multivitamins, Narcan, Naprosyn. Doses are reviewed. PHYSICAL EXAMINATION: Patient is alert and oriented times three. Pulse 124, blood pressure is 101/61, respirations 16, temperature 98.2, pulse ox 98% on room air. HEENT: Conjunctivae normal. NECK: No JVD. CARDIOVASCULAR: S1, S2 muffled. RESPIRATORY SYSTEM: Breath sounds diminished at the bases. Scattered rhonchi and crackles. ABDOMEN: Soft, nontender. Legs are no edema. No swelling. NERVOUS SYSTEM: No focal deficits. LABS: At this time shows WBC 29.62, sodium 137, potassium 4.3. ASSESSMENT: 1. Acute bilateral interstitial pneumonia possibly gram-negative, possibly viral, possibly Covid 19, negative with possible sepsis, present on admission. 2. Chronic obstructive pulmonary disease acute exacerbation. 3. Increased WBC possibly secondary to sepsis. 4. Monocytosis. 5. Elevated D-dimer without any evidence of pulmonary embolism. 6. Hyponatremia. 7. Increased creatinine with possibly chronic kidney stage 3. 8. Hypertension. 9. Hyperlipidemia. 10.History of peripheral neuropathy. 11.History of nicotine dependence. 12.FULL CODE. RECOMMENDATIONS AND DISCUSSION: I recommend to continue current medications, monitoring, symptomatic treatment. Otherwise at this time, Covid 19 is negative. Initial test is negative. I have recommended a repeat PCR testing. Otherwise, we will continue the antibiotics. Cultures are negative. I would also recommend mycoplasma and Legionella as well. The patient continues to be sick with white count elevated to 29.62 and extensive bilateral lung lesions and elevated D-dimer. This patient requires full admission spanning at least 48 hours of inpatient hospitalization. This patient could not be managed outpatient. Please call me with any questions. Discussed with the patient at length. A copy of this dictation being forwarded to Dr. Unger who is the primary physician. Closely follow with Pulmonary. MMODL / IJN: [id number] / MTDD
[2021-04-08] MEDS: LATANOPROST 0.005% OPHTH DROPS 2.5 ML BTL LEFT EYE SCH (21:36)
[2021-04-08] MEDS: ATORVASTATIN 10 MG TAB PO SCH (21:36)
[2021-04-08] MEDS: MONTELUKAST 10 MG TAB PO SCH (21:36)
[2021-04-09 05:13] LABS: Albumin 3.7 g/dL (3.80-4.90); Albumin/Globulin Ratio 1.68 (1.60-3.17); Globulin 2.2 g/dL (1.6-3.3); Total Bilirubin 0.6 mg/dL (0.2-1.2); Total Protein 5.9 g/dL (6.2-8.2)
[2021-04-09] MEDS: MULTIVITAMINS, THERA 1 EACH TAB PO SCH (08:34)
[2021-04-09] MEDS: amLODIPine 10 MG TAB PO SCH (08:34)
[2021-04-09] MEDS: HEPARIN SODIUM,PORCINE/PF 5,000 UNIT/0.5 ML SYRINGE SQ SCH ×2 (08:34→20:59)
[2021-04-09] MEDS: NAPROXEN 250 MG TAB PO SCH (08:34)
[2021-04-09] MEDS: PANTOPRAZOLE 40 MG TABLET PO SCH (08:34)
[2021-04-09] MEDS: AZITHROMYCIN 500 MG TAB PO SCH (08:34)
[2021-04-09] MEDS: GABAPENTIN 400 MG CAP PO SCH ×2 (08:34→20:58)
[2021-04-09] MEDS: LOSARTAN 50 MG TAB PO SCH (08:34)
[2021-04-09] MEDS: IPRATROPIUM-ALBUTEROL 3 ML NEB INHALATION SCH ×3 (08:44→20:44)
--- NOTE | 2021-04-09 10:34 | P.PN ---
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 He states that last night he began having some chills and he was having difficulties with sleep all night. His friend who stays with him walk him up and he found that the patient was having difficulties mobility because of his overall generalized weakness and for that reason was recommended for him to come into the emergency department. He has a mild cough which is of a chronic in nature. No significant sputum production. No chest pain. No exertional dyspnea. No exposure to COVID-19. The patient denied having any fever or chills. No abdominal pain. No nausea or vomiting. No cervix urgency. In emergency, the patient was worked up. The patient was found to be hemodynamically stable and he was afebrile. Room air pulse ox is above 90% and order of 97%. EKG showed a normal sinus rhythm. The patient had a white cell count of 33 with a hemoglobin of 15.9. Creatinine was abnormal at 1.3. Rest of the electrodes are within normal limits. Chest x-ray showed some chronic interstitial changes. This was followed up by a computed tomography scan of the chest that showed ILD involving the lung bases and had a peripheral distribution consistent with IPF. No previous CAT scans for comparison and the CAT scan of the chest was very much consistent with chronic ILD/IPF. DVT of the lower extremities were negative for pulmonary embolism. The d-dimer was at 1.1. The COVID-19 testing was negative. Influenza A and B were negative. RSV by PCR was negative. Urinalysis was negative. ProBNP level was 380. CPK was 174. Troponin was negative. The patient was started on antibiotics with Rocephin and Zithromax and the patient was hospitalized accordingly. Further evaluation. Currently is resting comfortably in bed on room air oxygen. The patient is seen today 04/09/2021 in follow-up on the regular medical floor. He is currently sitting up in bed. Awake and alert in no acute distress. Wheezing a bit easier today compared to yesterday. Maintaining good O2 saturations in the 90s on room air. He's afebrile. Hemodynamically stable. He's been up to the shower without acute distress. Blood culture reveals no growth to date. CBC is pending. He remains on ceftriaxone and azithromycin along with bronchodilators. Objective - Vital Signs Vital signs: Vital Signs Temp 98.7 F 04/09/21 06:50 Pulse 72 04/09/21 08:57 Resp 16 04/09/21 06:50 BP 132/66 04/09/21 06:50 Pulse Ox 94 L 04/09/21 06:50 Intake & Output 04/08/21 04/09/21 04/09/21 18:59 06:59 18:59 Intake Total 580 Balance 580 Intake: Oral 580 Other: Voiding Method Toilet # Voids 1 - Exam Alert, very pleasant 80-year-old gentleman, well nourished and normally developed. Vital signs as documented. Head exam is unremarkable. No scleral icterus or corneal arcus noted. Neck is without jugular venous distension, thy romegaly, or carotid bruits. Carotid upstrokes are brisk bilaterally. Lungs are diminished breath sound bilaterally and the patient has coarse Velcro crackles in lung bases consistent with ILD.. Cardiac exam reveals the PMI to be normally sized and situated. Rhythm is regular. First and second heart sounds normal. No murmurs, rubs or gallops. Abdominal exam reveals normal bowel sounds, no masses, no organomegaly and no aortic enlargement. Extremities are nonedematous and both femoral and pedal pulses are normal.Examination of the skin revealed no evidence of significant rashes, suspicious appearing nevi or other concerning lesions.Neurologically, the patient is awake and alert and the patient does not have any focal neurological deficit. Cranial nerves are essentially intact. - Labs CBC & Chem 7: 04/08/21 05:42 04/08/21 05:42 Labs: Abnormal Lab Results - Last 24 Hours (Table) 04/08/21 04/08/21 Range/Units 05:42 05:42 Est GFR (CKD-EPI)NonAf 56.8 L (60.0-200.0) Glucose 126 H (70-110) mg/dL AST 37 H (14-35) U/L Total Protein 5.9 L (6.2-8.2) g/dL Albumin 3.70 L (3.80-4.90) g/dL Procalcitonin 1.49 H (0.02-0.09) ng/mL Microbiology - Last 24 Hours (Table) 04/07/21 14:16 Blood Culture - Preliminary Blood No Growth after 24 hours 04/07/21 13:45 Blood Culture - Preliminary Blood No Growth after 24 hours Assessment and Plan Assessment: 1 generalized weakness/leukocytosis, consider underlying infection/sepsis and the issues underlying further investigation. 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 3 chronic cough 4 leukocytosis 5 generalized weakness 6 hypertension 7 hyperlipidemia 8 peripheral neuropathy 9 glucoma Plan: The patient was seen and evaluated by Dr. Diaz Currently stable from the pulmonary standpoint Will benefit from outpatient pulmonary function testing We'll determine if treatment options for suspected IPF Continue antibiotics for now, CBC pending I, the cosigning physician, performed a history & physical examination of the patient. Lungs sounds are coarse crackles in the bilateral bases. Maintaining good O2 saturations in the 90s on room air. I discussed the assessment and plan of care with my nurse practitioner, Ana Rosa Chavez. I attest to the above note as dictated by her.
[2021-04-09 10:55] LABS: Basophils % (A) 0.5 %; Eosinophils # (A) 0.43 X 10*3/uL (0.04-0.35); Eosinophils % (A) 2.3 %; HCT 39.9 % (39.6-50.0); HGB 13.3 g/dL (13.0-17.0); Lymphocytes % (A) 11.6 %; MCH 33.2 pg (27.0-32.0); MCHC 33.3 g/dL (32.0-37.0); MCV 99.5 fL (80.0-97.0); Mean Platelet Volume 10.8 fL (9.5-12.2); Monocytes # (A) 1.91 X 10*3/uL (0.20-1.00); Neutrophils # (A) 14.25 X 10*3/uL (1.80-7.70); Neutrophils % (A) 74.8 %; Platelet Count 256 X 10*3/uL (140-440); RBC 4.01 X 10*6/uL (4.40-5.60); RDW 13.1 % (11.5-14.5); WBC 19.04 X 10*3/uL (4.50-10.00)
--- NOTE | 2021-04-09 11:21 | XR ---
EXAMINATION TYPE: XR chest 1V portable DATE OF EXAM: 04/09/2021 COMPARISON: 04/07/2021 HISTORY: Pneumonia TECHNIQUE: Single frontal view of the chest is obtained. FINDINGS: Emphysematous changes are seen with cardiomegaly. Bilateral areas of patchy infiltrate are stable. No pneumothorax. Diffuse osteopenia. Arthropathy of the shoulders. Limited inspiration. Nodu lar density right upper lobe. Coarsened interstitial pattern. IMPRESSION: 1. COPD with suspected right upper lobe pulmonary nodule. 2. Correlate for pulmonary fibrosis. Subsegmental patchy infiltrate not excluded bilaterally.
--- NOTE | 2021-04-09 17:36 | PN ---
PROGRESS NOTE DATE OF SERVICE: 04/09/2021 This 80-year-old gentleman who was admitted with shortness of breath and cough had possible pneumonia. Patient improving significantly. The chest x-ray which was done today and which was reviewed personally by me showed bibasilar lesions, maybe probably slightly improved from the previous one. No cough. No fever. PHYSICAL EXAMINATION: Alert and oriented x2. Pulse 66. Blood pressure 125/73, respirations 16, temperature 98.7, pulse ox 94% on room air. HEENT: Conjunctivae normal. Oral mucosa moist. Neck is no JVD. Cardiovascular: S1, S2 muffled. Respiration: Breath sounds diminished in the bases. A few scattered rhonchi. Abdomen: Soft. Nervous System: No focal deficits. LABORATORY DATA: WBC 19.04. Other labs are noted. Procalcitonin is 1.49. ASSESSMENT: 1. Acute bilateral interstitial pneumonia possibly gram-negative possibly viral, possibly Covid 19 negative with possible sepsis present on admission. 2. Chronic obstructive pulmonary disease, acute exacerbation. 3. Increased WBC possibly secondary to sepsis. 4. Monocytosis. 5. Elevated D-dimer without any evidence of pulmonary embolism. 6. Hyponatremia. 7. Increased creatinine with possibly chronic kidney stage 3. 8. Hypertension. 9. Hyperlipidemia. 10.History of peripheral neuropathy. 11.History of nicotine dependence. 12.FULL CODE. RECOMMENDATIONS AND DISCUSSION: Recommend to continue current medications, continue to monitor, symptomatic treatment. Otherwise, at this time, I recommend continue the broad-spectrum IV antibiotics. Influenza is negative. Covid 19 is also negative x2 including the RTP PCR system. Prognosis guarded. Further recommendations to follow. MMODL / IJN: [id number] /
[2021-04-09] MEDS: ATORVASTATIN 10 MG TAB PO SCH (20:58)
[2021-04-09] MEDS: MONTELUKAST 10 MG TAB PO SCH (20:59)
[2021-04-09] MEDS: LATANOPROST 0.005% OPHTH DROPS 2.5 ML BTL LEFT EYE SCH (20:59)
[2021-04-10] MEDS: IPRATROPIUM-ALBUTEROL 3 ML NEB INHALATION SCH ×2 (07:26→11:33)
[2021-04-10] MEDS: MULTIVITAMINS, THERA 1 EACH TAB PO SCH (07:43)
[2021-04-10] MEDS: GABAPENTIN 400 MG CAP PO SCH (07:43)
[2021-04-10] MEDS: AZITHROMYCIN 500 MG TAB PO SCH (07:43)
[2021-04-10] MEDS: amLODIPine 10 MG TAB PO SCH (07:43)
[2021-04-10] MEDS: LOSARTAN 50 MG TAB PO SCH (07:43)
[2021-04-10] MEDS: PANTOPRAZOLE 40 MG TABLET PO SCH (07:43)
[2021-04-10] MEDS: HEPARIN SODIUM,PORCINE/PF 5,000 UNIT/0.5 ML SYRINGE SQ SCH (07:44)
[2021-04-10] MEDS: NAPROXEN 250 MG TAB PO SCH (07:44)
--- NOTE | 2021-04-10 12:19 | P.PN ---
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 He states that last night he began having some chills and he was having difficulties with sleep all night. His friend who stays with him walk him up and he found that the patient was having difficulties mobility because of his overall generalized weakness and for that reason was recommended for him to come into the emergency department. He has a mild cough which is of a chronic in nature. No significant sputum production. No chest pain. No exertional dyspnea. No exposure to COVID-19. The patient denied having any fever or chills. No abdominal pain. No nausea or vomiting. No cervix urgency. In emergency, the patient was worked up. The patient was found to be hemodynamically stable and he was afebrile. Room air pulse ox is above 90% and order of 97%. EKG showed a normal sinus rhythm. The patient had a white cell count of 33 with a hemoglobin of 15.9. Creatinine was abnormal at 1.3. Rest of the electrodes are within normal limits. Chest x-ray showed some chronic interstitial changes. This was followed up by a computed tomography scan of the chest that showed ILD involving the lung bases and had a peripheral distribution consistent with IPF. No previous CAT scans for comparison and the CAT scan of the chest was very much consistent with chronic ILD/IPF. DVT of the lower extremities were negative for pulmonary embolism. The d-dimer was at 1.1. The COVID-19 testing was negative. Influenza A and B were negative. RSV by PCR was negative. Urinalysis was negative. ProBNP level was 380. CPK was 174. Troponin was negative. The patient was started on antibiotics with Rocephin and Zithromax and the patient was hospitalized accordingly. Further evaluation. Currently is resting comfortably in bed on room air oxygen. The patient is seen today 04/09/2021 in follow-up on the regular medical floor. He is currently sitting up in bed. Awake and alert in no acute distress. Wheezing a bit easier today compared to yesterday. Maintaining good O2 saturations in the 90s on room air. He's afebrile. Hemodynamically stable. He's been up to the shower without acute distress. Blood culture reveals no growth to date. CBC is pending. He remains on ceftriaxone and azithromycin along with bronchodilators. The patient is seen today 04/10/2021 low on the regular medical floor. He is currently sitting up in a chair at the bedside. Awake and alert in no acute distress. Denies any worsening shortness of breath, cough or congestion. He is maintaining O2 saturations in the 90s on room air. He is afebrile. Hemodynamically stable. Blood cultures reveal no growth. No new labs. Remains on ceftriaxone and azithromycin. Remains on bronchodilators. Objective - Vital Signs Vital signs: Vital Signs Temp 98.5 F 04/10/21 08:00 Pulse 72 04/10/21 11:44 Resp 16 04/10/21 08:00 BP 128/73 04/10/21 08:00 Pulse Ox 93 L 04/10/21 08:00 Intake & Output 04/09/21 04/10/21 04/10/21 18:59 06:59 18:59 Other: Voiding Method Toilet Toilet # Voids 3 # Bowel Movements 0 - Exam Alert, very pleasant 80-year-old gentleman, on room air, well nourished and normally developed. Vital signs as documented. Head exam is unremarkable. No scleral icterus or corneal arcus noted. Neck is without jugular venous distension, thyromegaly, or carotid bruits. Carotid upstrokes are brisk bilaterally. Lungs are diminished breath sound bilaterally and the patient has coarse Velcro crackles in lung bases consistent with ILD.. Cardiac exam reveals the PMI to be normally sized and situated. Rhythm is regular. First and second heart sounds normal. No murmurs, rubs or gallops. Abdominal exam reveals normal bowel sounds, no masses, no organomegaly and no aortic enlargement. Extremities are nonedematous and both femoral and pedal pulses are normal.Examination of the skin revealed no evidence of significant rashes, suspicious appearing nevi or other concerning lesions.Neurologically, the patient is awake and alert and the patient does not have any focal neurological deficit. Cranial nerves are ess entially intact. - Labs CBC & Chem 7: 04/09/21 06:28 04/08/21 05:42 Labs: Microbiology - Last 24 Hours (Table) 04/07/21 14:16 Blood Culture - Preliminary Blood No Growth after 48 hours 08/15/21 13:45 Blood Culture - Preliminary Blood No Growth after 48 hours Assessment and Plan Assessment: 1 generalized weakness/leukocytosis, consider underlying infection/sepsis and the issues underlying further investigation. 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 3 chronic cough 4 leukocytosis improving and down to 19. 5 generalized weakness 6 hypertension 7 hyperlipidemia 8 peripheral neuropathy 9 glucoma Plan: The patient was seen and evaluated by Dr. Diaz Currently stable from the pulmonary standpoint Will benefit from outpatient pulmonary function testing Home once cleared by medicine I, the cosigning physician, performed a history & physical examination of the patient. Lungs sounds are coarse crackles in the bilateral bases. Maintaining good O2 saturations in the 90s on room air. I discussed the assessment and plan of care with my nurse practitioner, AnaR osa Chavez. I attest to the above note as dictated by her.
[2021-04-10 13:24] LABS: Basophils % (A) 1 %; Eosinophils % (A) 5 %; HGB 15.2 gm/dL (13.0-17.5); Lymphocytes % (A) 17 %; MCH 35.1 pg (25.0-35.0); MCHC 35.3 g/dL (31.0-37.0); MCV 99.5 fL (80.0-100.0); Mean Platelet Volume 7.6; Monocytes % (A) 10 %; Neutrophils % (A) 63 %; Platelet Count 333 k/uL (150-450); RBC 4.32 m/uL (4.30-5.90); RDW 13.4 % (11.5-15.5); WBC 12.3 k/uL (3.8-10.6)
[2021-04-10 13:25] LABS: Basophils # (A) 0.1 k/uL (0-0.2); Eosinophils # (A) 0.6 k/uL (0-0.7); Lymphocytes # (A) 2.1 k/uL (1.0-4.8); Monocytes # (A) 1.2 k/uL (0-1.0); Neutrophils # (A) 7.8 k/uL (1.3-7.7)
[2021-04-10 13:34] LABS: African American GFR (CKD) 64 (>60 ml/min/1.73 sqM); Anion Gap 10 mmol/L; Blood Urea Nitrogen 20 mg/dL (9-20); Calcium 9.6 mg/dL (8.4-10.2); Carbon Dioxide 24 mmol/L (22-30); Chloride 102 mmol/L (98-107); Glucose 84 mg/dL (74-99); Non-African American GFR(CKD) 55 (>60 ml/min/1.73 sqM); Sodium 136 mmol/L (137-145)
[2021-04-10 13:55] VITALS: BP 97/61; PULSE 100; RESP 18; TEMP 97.7
== END 2021-04-10 17:08 | disposition home or self-care (01) | DRG 871 ==
LOC: EC 09:59 → 4SSUR 14:35 → 6NMEDSUR 16:03
PROVIDERS: ADMIT Hospitalist; ATTEND Hospitalist
DX: A41.9 Sepsis, unspecified organism (principal); J15.6 Pneumonia due to other Gram-negative bacteria; J84.9 Interstitial pulmonary disease, unspecified; J44.1 Chronic obstructive pulmonary disease with (acute) exacerbation; J44.0 Chronic obstructive pulmonary disease with (acute) lower respiratory infection; E87.1 Hypo-osmolality and hyponatremia; I13.0 Hypertensive heart and chronic kidney disease with heart failure and stage 1 through stage 4 chronic kidney disease, or unspecified chronic kidney disease; N18.30 Chronic kidney disease, stage 3 unspecified; H40.9 Unspecified glaucoma; D72.821 Monocytosis (symptomatic); R79.89 Other specified abnormal findings of blood chemistry; R53.1 Weakness; G62.9 Polyneuropathy, unspecified; R78.5 Finding of other psychotropic drug in blood; Z20.822 Contact with and (suspected) exposure to COVID-19; Z87.891 Personal history of nicotine dependence; Z88.0 Allergy status to penicillin; Z88.2 Allergy status to sulfonamides
CPT/HCPCS: 36415; 71045; 71046; 71275; 80048; 80053; 81003; 82550; 83605; 83735; 83880; 84145; 84484; 85025; 85379; 85610; 85730; 87040; 87502; 87634; 87635; 93005; 94640; 94760; 96361; 96374; 99285

== ENCOUNTER → 2021-04-12 | Outpatient (CLI) | payer MEDICARE ==
[2021-04-12 23:36] LABS: Basophils # (A) 0.18 X 10*3/uL (0.00-0.10); Basophils % (A) 1.3 %; Eosinophils # (A) 1.13 X 10*3/uL (0.04-0.35); Eosinophils % (A) 8.2 %; HCT 42.2 % (39.6-50.0); HGB 13.9 g/dL (13.0-17.0); Lymphocytes # (A) 1.68 X 10*3/uL (0.90-5.00); Lymphocytes % (A) 12.1 %; MCHC 32.9 g/dL (32.0-37.0); MCV 100.2 fL (80.0-97.0); Monocytes # (A) 1.89 X 10*3/uL (0.20-1.00); Monocytes % (A) 13.6 %; Neutrophils # (A) 8.72 X 10*3/uL (1.80-7.70); Platelet Count 361 X 10*3/uL (140-440); RBC 4.21 X 10*6/uL (4.40-5.60); RDW 13.2 % (11.5-14.5); WBC 13.85 X 10*3/uL (4.50-10.00)
[2021-04-13 14:01] LABS: African American GFR (CKD) 50.2 (60.0-200.0); Anion Gap 15.2 mmol/L (4.00-12.00); BUN/Creat Ratio 23.33 Ratio (12.00-20.00); Calcium 9.4 mg/dL (8.7-10.3); Carbon Dioxide 17.8 mmol/L (21.6-31.8); Non-African American GFR(CKD) 43.3 (60.0-200.0); Potassium 5.2 mmol/L (3.5-5.5)
== END | disposition home or self-care (01) ==
LOC: LABWHC1 14:53
PROVIDERS: ATTEND Registered Nurse
DX: D72.829 Elevated white blood cell count, unspecified (principal)
CPT/HCPCS: 36415; 80048; 85025

== ENCOUNTER → 2021-05-27 | Outpatient (CLI) | payer MEDICARE ==
--- NOTE | 2021-05-27 14:53 | XR ---
EXAMINATION TYPE: XR chest 2V DATE OF EXAM: 05/27/2021 COMPARISON: Chest x-ray 04/09/2021, chest CT 04/07/2021 HISTORY: J 44.9, cough and congestion TECHNIQUE: Frontal and lateral views of the chest are obtained. FINDINGS: Findings are similar to prior exam. There are patchy areas of increased attenuation bilate rally, the interstitium is increased and there is prominence of central vascularity. No evident pneum othorax. Left hemidiaphragm is obscured. Heart size is difficult to assess, there are prominent epica rdial fat pads. No definite pleural effusion. Lung biopsy low in the patient is rotated. IMPRESSION: Interstitial lung disease, difficult to exclude a superimposed pneumonia.
== END | disposition home or self-care (01) ==
LOC: RADXRMAIN 10:33
PROVIDERS: ATTEND Physician Assistant
DX: J98.4 Other disorders of lung (principal)
CPT/HCPCS: 71046

== ENCOUNTER → 2022-08-27 | Outpatient (CLI) | payer MEDICARE ==
--- NOTE | 2022-08-27 16:21 | P.PN ---
Subjective DATE: 08/27/2022 FOLLOW UP VISIT. Patient with obstructive sleep apnea hypopnea syndrome return to sleep center for follow-up visit. Information from previous visit have been reviewed. Patient is using PAP equipment every night for the whole night, getting PAP supplies in time. The patient does not have significant problems with the mask, PAP unit and humidification. [place] sleepiness scale is 2, which is normal. I checked information from PAP unit. PAP unit pressure 12 cm H2O. Pap unit is old. Heated humidifier doesn't work w ell. Usage is 100 % for more then 4 hours, average 9.8 hours per night. Leak is high 56 l/m. Apnea Hypopnea Index is 0.7, which is normal. MEDICATIONS:1. Omeprazole 2. Amlodipine 10 mg once a day 3. Olmesartan once a day 4. Simvastatin 20 mg once a day 5. Gabapentin twice a day 6. Flonase 7. Latanoprost eyedrops During physical exam: GENERAL: A pleasant patient without any distress. VITAL SIGNS: BP 155/78, HR 85, RR 18 , weight 216.8, temperature 97.5, oxygen saturation at room air 92 % . HEENT: PERRLA, EOMI.low position of soft palate, Mallapati 4 . NECK: Supple. No JVD. LUNGS: Clear to percussion and to auscultation. Good air exchange. No wheezing or rhonchi. HEART: S1, S2 regular. ABDOMEN: Soft and nontender.[] EXTREMITIES: No clubbing or cyanosis. 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 No focal deficit. Impressions: 1. Obstructive sleep apnea-hypopnea syndrome. Patient demonstrated great compliance with treatment, benefiting from treatment. 2. Hypertension. 3. Left side glaucoma. 4. Hyperlipidemia. 5. Mild obesity. 6. Acid reflux. 7. History of sinusitis. Plan: 1. Continue using PAP equipment every night for the whole night. Prescription to replace CPAP unit. CPAP unit is old and humidifier does not work well. 2. To change air filter at least 1-2 times per month. 3. PAP unit should stay lower then position of the head. 4. Advised patient to remove all remaining water from humidifier canister daily and make it dry after each usage. Refill canister with fresh distilled water before each usage. 5. Sleep hygiene with regular time in bed for at least 8 hours. 6. Precautions related to driving. No driving if feel any sleepiness. 7. I will maintain prescription for PAP supplies including mask, tube, filters. 8. Follow up visit in 1-2 months after patient will get new CPAP unit or earlier if patient has any problems. 9. Watching weight. Thank you very much for allowing me to participate in the management of your patient. Juancho Florian MD, PhD, FAASM. Diplomat of [place] [employer], Sleep Medicine Board by [place] [employer] [facility] [place]
== END ==
LOC: SLEEP 14:21
PROVIDERS: ATTEND Internal Medicine
DX: G47.33 Obstructive sleep apnea (adult) (pediatric) (principal); E78.5 Hyperlipidemia, unspecified; K21.9 Gastro-esophageal reflux disease without esophagitis; E66.8 Other obesity; I10 Essential (primary) hypertension; Z87.09 Personal history of other diseases of the respiratory system; H40.9 Unspecified glaucoma; H40.1120 Primary open-angle glaucoma, left eye, stage unspecified; Z88.0 Allergy status to penicillin; Z88.2 Allergy status to sulfonamides
CPT/HCPCS: 99212

== ENCOUNTER 2022-11-05 18:40 | Inpatient (IN) | payer MEDICARE ==
[2022-11-05 19:45] LABS: Basophils # (A) 0.1 k/uL (0-0.2); Basophils % (A) 1 %; Eosinophils % (A) 0 %; HCT 44.6 % (39.0-53.0); HGB 15.2 gm/dL (13.0-17.5); Lymphocytes # (A) 0.8 k/uL (1.0-4.8); Lymphocytes % (A) 7 %; MCH 32.9 pg (25.0-35.0); MCV 96.7 fL (80.0-100.0); Monocytes # (A) 0.8 k/uL (0-1.0); Monocytes % (A) 7 %; Neutrophils # (A) 9.7 k/uL (1.3-7.7); Neutrophils % (A) 84 %; Platelet Count 319 k/uL (150-450); RBC 4.61 m/uL (4.30-5.90); RDW 12.6 % (11.5-15.5); WBC 11.6 k/uL (3.8-10.6)
--- NOTE | 2022-11-05 19:48 | XR ---
EXAMINATION TYPE: XR chest 1V portable DATE OF EXAM: 11/05/2022 COMPARISON: 10/31/2022 HISTORY: Follow-up pneumonia TECHNIQUE: Single view FINDINGS: There is coarse interstitial and airspace infiltrate in the mid and lower lung elias. Hear t is enlarged. There are chest leads. There is some blunting of the costophrenic angles. IMPRESSION: Pulmonary infiltrates are increased compared to last exam and consistent with worsening p neumonia. Congestive heart failure also possible.
[2022-11-05 20:05] LABS: ALT 36 U/L (4-49); AST 32 U/L (17-59); African American GFR (CKD) >90 (>60 ml/min/1.73 sqM); Albumin 2.1 g/dL (3.5-5.0); Alkaline Phosphatase 74 U/L (38-126); Anion Gap 2 mmol/L; Blood Urea Nitrogen 22 mg/dL (9-20); Carbon Dioxide 20 mmol/L (22-30); Chloride 118 mmol/L (98-107); Glucose 124 mg/dL (74-99); Non-African American GFR(CKD) >90 (>60 ml/min/1.73 sqM); Potassium 3.3 mmol/L (3.5-5.1); Sodium 140 mmol/L (137-145); Total Bilirubin 0.6 mg/dL (0.2-1.3); Total Protein 4.5 g/dL (6.3-8.2)
[2022-11-05 20:18] LABS: Calcium 5.9 mg/dL (8.4-10.2)
[2022-11-05] MEDS ORDERED: methylPREDNISolone SOD SUCCI 125 MG/2 ML VIAL IV STA (20:43)
--- NOTE | 2022-11-05 20:45 | ED ---
SOB HPI - General Chief Complaint: Shortness of Breath Stated Complaint: sob Source: EMS Mode of arrival: EMS Limitations: no limitations - History of Present Illness Initial Comments: 82-year-old male with past history of pulmonary fibrosis, hypertension, hyperlipidemia presents emergency Department in respiratory distress. Patient was recently just discharged from our facility on the . He was diagnosed with pulmonary fibrosis one year ago. Was not oxygen dependent on the last hospitalization where he was diagnosed with Covid. He went home on 4 L. He has been using his inhalers as directed and also taking his steroids. He does not feel as if his breathing has improved at all since discharge. EMS were called to his house and found him hypoxic on his 4 L. He is placed on a nonrebreather and best oxygenation was noted to be 89%. He denies any chest pain. No history of cardiac disease. Patient not on any antibiotics. No other alleviating, quill stripper modifying factors - Related Data Home Medications Medication Instructions Recorded Confirmed Latanoprost [Xalatan 0.005%] 1 drop LEFT EYE HS 04/07/21 11/05/22 Omeprazole 40 mg PO DAILY 04/07/21 11/05/22 Simvastatin [Zocor] 20 mg PO HS 04/07/21 11/05/22 amLODIPine [Norvasc] 10 mg PO DAILY 04/07/21 11/05/22 guaiFENesin-DM 600/30MG [Mucinex 1 tab PO HS 10/26/22 11/05/22 Dm] predniSONE [Deltasone] See Taper PO DAILY 11/05/22 11/05/22 Previous Rx's Medication Instructions Recorded Apixaban [Eliquis] 5 mg PO BID #60 tab 10/27/22 Acetaminophen Tab [Tylenol] 650 mg PO Q6HR PRN tab 10/31/22 Albuterol Inhaler [Ventolin Hfa 1 puff INHALATION RT-QID PRN #1 10/31/22 Inhaler] each Ascorbic Acid [Vitamin C] 500 mg PO DAILY #30 tab 10/31/22 Budesonide-Formot 160-4.5 Mcg 2 puff INHALATION RT-BID #1 each 10/31/22 [Symbicort 160-4.5 Mcg Inhaler] Cholecalciferol [Vitamin D3 (25 50 mcg PO DAILY #30 tab 10/31/22 Mcg = 1000 Iu)] Gabapentin [Neurontin] 100 mg PO TID PRN #6 cap 10/31/22 Metoprolol Tartrate [Lopressor] 25 mg PO TID #90 tab 10/31/22 Zinc Sulfate [Orazinc] 220 mg PO DAILY #30 cap 10/31/22 Allergies Allergy/AdvReac Type Severity Reaction Status Date / Time Penicillins Allergy Unknown Verified 11/05/22 21:09 Sulfa (Sulfonamide Allergy Unknown Verified 11/05/22 21:09 Antibiotics) Review of Systems ROS Statement: Those systems with pertinent positive or pertinent negative responses have been documented in the HPI. ROS Other: All systems not noted in ROS Statement are negative. Past Medical History Past Medical History: Hyperlipidemia, Hypertension Additional Past Medical History / Comment(s): neuropathy, glaucoma and OA History of Any Multi-Drug Resistant Organisms: None Reported Past Surgical History: No Surgical Hx Reported Additional Past Surgical History / Comment(s): colonoscopy Past Psychological History: No Psychological Hx Reported Smoking Status: Former smoker Past Alcohol Use History: Occasional Past Drug Use History: None Reported General Exam Limitations: no limitations Course Vital Signs 11/05/22 11/05/22 11/05/22 18:46 19:13 20:43 Temperature 97.5 F L Pulse Rate 68 59 L Respiratory 22 22 Rate Blood Pressure 132/78 119/73 O2 Sat by Pulse 87 L 97 Oximetry Fraction of 100 Inspired Oxygen (FIO2) 11/05/22 11/05/22 11/06/22 21:00 23:00 00:41 Temperature Pulse Rate 60 56 L Respiratory 25 H 25 H Rate Blood Pressure 122/75 129/85 O2 Sat by Pulse 97 96 Oximetry Fraction of 100 Inspired Oxygen (FIO2) Medical Decision Making - Medical Decision Making Was pt. sent in by a medical professional or institution (, PA, DECK MATE, urgent care, hospital, or usp...) When possible be specific @ -[No] Did you speak to anyone other than the patient for history (EMS, parent, family, police, friend...)? What history was obtained from this source @ -[No] Did you review nursing and triage notes (agree or disagree)? Why? @ -[I reviewed and agree with nursing and triage notes] Were old charts reviewed (outside hosp., previous admission, EMS record, old EKG, old radiological studies, urgent care reports/EKG's, usp records)? Report findings @ -[No old charts were reviewed] Differential Diagnosis (chest pain, altered mental status, abdominal pain women, abdominal pain men, vaginal bleeding, weakness, fever, dyspnea, syncope, headache, dizziness, GI bleed, back pain, seizure, CVA, palpatations, mental health, musculoskeletal)? @ -[not applicable] EKG interpreted by me (3pts min.). @ -[As above] X-rays interpreted by me (1pt min.). @ -[None done] CT interpreted by me (1pt min.). @ -[None done] U/S interpreted by me (1pt. min.). @ -[None done] What testing was considered but not performed or refused? (CT, X-rays, U/S, labs)? Why? @ -[None] What meds were considered but not given or refused? Why? @ -[None] Did you discuss the management of the patient with other professionals (professionals i.e. , PA, DECK MATE, lab, RT, psych nurse, social insurance administrator, automotive leasing sales representative, teacher, property disposal officer, rehabilitation case coordinator)? Give summary @ -[No] Was smoking cessation discussed for >3mins.? @ -[No] Was critical care preformed (if so, how long)? @ -[No] Were there social determinants of health that impacted care today? How? (Homelessness, low income, unemployed, alcoholism, drug addiction, transportation, low edu. Level, literacy, decrease access to med. care, penitentiary, rehab)? @ -[No] Was there de-escalation of care discussed even if they declined (Discuss DNR or withdrawal of care, Hospice)? DNR status @ -[No] What co-morbidities impacted this encounter? (DM, HTN, Smoking, COPD, CAD, Cancer, CVA, ARF, Chemo, Hep., AIDS, mental health diagnosis, sleep apnea, morbid obesity)? @ -[None] Was patient admitted / discharged? Hospital course, mention meds given and route, prescriptions, significant lab abnormalities, going to OR and other pertinent info. @ - Upon arrival patient's placed into room 4. The history and physical was performed. IV access established laboratory studies were conducted. Chest x-ra ys performed. Patient continues to test positive for Covid. Troponin 0.061. Calcium 5.9. Lactate 2.7. Ionized calcium ordered. Chest x-ray demonstrates interstitial infiltrates were increased compared to last exam. Patient was given a dose of steroids and albuterol inhaler. BNP is low and therefore Lasix is not administered at this time. Recommended admission for pulmonary consultation for continued Covid with BiPAP for respiratory distress. Spoke with Maryam who agreed to admit the patient Undiagnosed new problem with uncertain prognosis? @ -[No] Drug Therapy requiring intensive monitoring for toxicity (Heparin, Nitro, Insuli n, Cardizem)? @ -[No] Were any procedures done? @ -[No] Diagnosis/symptom? @ -[default] Acute, or Chronic, or Acute on Chronic? @ -[default] Uncomplicated (without systemic symptoms) or Complicated (systemic symptoms)? @ -[default] Side effects of treatment? @ -[No] Exacerbation, Progression, or Severe Exacerbation? @ -[No] Poses a threat to life or bodily function? How? (Chest pain, [place], [place], pneumonia, PE, COPD, DKA, ARF, appy, cholecystitis, CVA, Diverticulitis, Homicidal, Suicidal, threat to staff... and all critical care pts) @ -[No] - Lab Data Result diagrams: 11/05/22 19:20 11/05/22 19:20 Lab Results 11/05/22 11/05/22 11/05/22 Range/Units 19:20 19:20 19:20 WBC 11.6 H (3.8-10.6) k/uL RBC 4.61 (4.30-5.90) m/uL Hgb 15.2 (13.0-17.5) gm/dL Hct 44.6 (39.0-53.0) % MCV 96.7 (80.0-100.0) fL MCH 32.9 (25.0-35.0) pg MCHC 34.0 (31.0-37.0) g/dL RDW 12.6 (11.5-15.5) % Plt Count 319 (150-450) k/uL MPV 8.0 Neutrophils % 84 % Lymphocytes % 7 % Monocytes % 7 % Eosinophils % 0 % Basophils % 1 % Neutrophils # 9.7 H (1.3-7.7) k/uL Lymphocytes # 0.8 L (1.0-4.8) k/uL Monocytes # 0.8 (0-1.0) k/uL Eosinophils # 0.0 (0-0.7) k/uL Basophils # 0.1 (0-0.2) k/uL Sodium 140 (137-145) mmol/L Potassium 3.3 L (3.5-5.1) mmol/L Chloride 118 H (98-107) mmol/L Carbon Dioxide 20 L (22-30) mmol/L Anion Gap 2 mmol/L BUN 22 H (9-20) mg/dL Creatinine 0.61 L (0.66-1.25) mg/dL Est GFR (CKD-EPI)AfAm >90 (>60 ml/min/1.73 sqM) Est GFR (CKD-EPI)NonAf >90 (>60 ml/min/1.73 sqM) Glucose 124 H (74-99) mg/dL Lactic Ac Sepsis Rflx Plasma Lactic Acid Andrey (0.7-2.0) mmol/L Calcium 5.9 L* (8.4-10.2) mg/dL Total Bilirubin 0.6 (0.2-1.3) mg/dL AST 32 (17-59) U/L ALT 36 (4-49) U/L Alkaline Phosphatase 74 (38-126) U/L Troponin I 0.061 H* (0.000-0.034) ng/mL NT-Pro-B Natriuret Pep pg/mL Total Protein 4.5 L (6.3-8.2) g/dL Albumin 2.1 L (3.5-5.0) g/dL Influenza Type A (PCR) (Not Detectd) Influenza Type B (PCR) (Not Detectd) RSV (PCR) (Not Detectd) SARS-CoV-2 (PCR) (Not Detectd) 11/05/22 11/05/22 11/05/22 Range/Units 19:20 19:26 19:43 WBC (3.8-10.6) k/uL RBC (4.30-5.90) m/uL Hgb (13.0-17.5) gm/dL Hct (39.0-53.0) % MCV (80.0-100.0) fL MCH (25.0-35.0) pg MCHC (31.0-37.0) g/dL RDW (11.5-15.5) % Plt Count (150-450) k/uL MPV Neutrophils % % Lymphocytes % % Monocytes % % Eosinophils % % Basophils % % Neutrophils # (1.3-7.7) k/uL Lymphocytes # (1.0-4.8) k/uL Monocytes # (0-1.0) k/uL Eosinophils # (0-0.7) k/uL Basophils # (0-0.2) k/uL Sodium (137-145) mmol/L Potassium (3.5-5.1) mmol/L Chloride (98-107) mmol/L Carbon Dioxide (22-30) mmol/L Anion Gap mmol/L BUN (9-20) mg/dL Creatinine (0.66-1.25) mg/dL Est GFR (CKD-EPI)AfAm (>60 ml/min/1.73 sqM) Est GFR (CKD-EPI)NonAf (>60 ml/min/1.73 sqM) Glucose (74-99) mg/dL Lactic Ac Sepsis Rflx Plasma Lactic Acid Andrey 2.7 H* (0.7-2.0) mmol/L Calcium (8.4-10.2) mg/dL Total Bilirubin (0.2-1.3) mg/dL AST (17-59) U/L ALT (4-49) U/L Alkaline Phosphatase (38-126) U/L Troponin I (0.000-0.034) ng/mL NT-Pro-B Natriuret Pep 636 pg/mL Total Protein (6.3-8.2) g/dL Albumin (3.5-5.0) g/dL Influenza Type A (PCR) Not Detected (Not Detectd) Influenza Type B (PCR) Not Detected (Not Detectd) RSV (PCR) Not Detected (Not Detectd) SARS-CoV-2 (PCR) Detected A (Not Detectd) 11/05/22 Range/Units 20:13 WBC (3.8-10.6) k/uL RBC (4.30-5.90) m/uL Hgb (13.0-17.5) gm/dL Hct (39.0-53.0) % MCV (80.0-100.0) fL MCH (25.0-35.0) pg MCHC (31.0-37.0) g/dL RDW (11.5-15.5) % Plt Count (150-450) k/uL MPV Neutrophils % % Lymphocytes % % Monocytes % % Eosinophils % % Basophils % % Neutrophils # (1.3-7.7) k/uL Lymphocytes # (1.0-4.8) k/uL Monocytes # (0-1.0) k/uL Eosinophils # (0-0.7) k/uL Basophils # (0-0.2) k/uL Sodium (137-145) mmol/L Potassium (3.5-5.1) mmol/L Chloride (98-107) mmol/L Carbon Dioxide (22-30) mmol/L Anion Gap mmol/L BUN (9-20) mg/dL Creatinine (0.66-1.25) mg/dL Est GFR (CKD-EPI)AfAm (>60 ml/min/1.73 sqM) Est GFR (CKD-EPI)NonAf (>60 ml/min/1.73 sqM) Glucose (74-99) mg/dL Lactic Ac Sepsis Rflx Y Plasma Lactic Acid Andrey (0.7-2.0) mmol/L Calcium (8.4-10.2) mg/dL Total Bilirubin (0.2-1.3) mg/dL AST (17-59) U/L ALT (4-49) U/L Alkaline Phosphatase (38-126) U/L Troponin I (0.000-0.034) ng/mL NT-Pro-B Natriuret Pep pg/mL Total Protein (6.3-8.2) g/dL Albumin (3.5-5.0) g/dL Influenza Type A (PCR) (Not Detectd) Influenza Type B (PCR) (Not Detectd) RSV (PCR) (Not Detectd) SARS-CoV-2 (PCR) (Not Detectd) - EKG Data EKG Comments: EKG demonstrates sinus rhythm with a rate of 66. NE interval 163. QRS 98. QTC of 402. No acute ST segment elevations or depressions Disposition Clinical Impression: BiPAP (biphasic positive airway pressure) dependence, Hypoxia, Pulmonary edema, COVID-19 Disposition: ADMITTED IP TO THIS HOSP Condition: Serious Is patient prescribed a controlled substance at d/c from ED?: No Time of Disposition: :52 Decision to Admit Reason: Admit from EC Decision Date: 11/05/22 Decision Time: 20:52
[2022-11-05] MEDS ORDERED: NALOXONE 0.4 MG/ML 1 ML VIAL IV PRN (20:52)
[2022-11-05 21:26] LABS: INR 1.1 (<1.2); Prothrombin Time 11.6 sec (9.0-12.0)
[2022-11-05 21:29] LABS: Partial Thromboplastin Time 19.6 sec (22.0-30.0)
[2022-11-06] MEDS ORDERED: IPRATROPIUM 0.5 MG/2.5 ML NEBU INHALATION SCH
[2022-11-06] MEDS ORDERED: IPRATROPIUM-ALBUTEROL 3 ML NEB INHALATION SCH
[2022-11-06] MEDS ORDERED: ALBUTEROL NEBULIZED 2.5 MG/3 ML INHALATION SCH
[2022-11-06] MEDS: ALBUTEROL HFA INHALER INHALATION SCH ×6 (00:39→21:01)
[2022-11-06] MEDS ORDERED: ACETAMINOPHEN TAB 325 MG TAB PO PRN (02:15)
[2022-11-06] MEDS ORDERED: GABAPENTIN 100 MG CAP PO PRN (02:15)
[2022-11-06] MEDS ORDERED: methylPREDNISolone SOD SUCCI 40 MG/ML 1 ML VIAL IV SCH (08:00)
[2022-11-06] MEDS: SYMBICORT 160-4.5 MCG INHALER INHALATION SCH ×2 (08:04→21:01)
[2022-11-06] MEDS: TIOTROPIUM 2.5 MCG INHALER INHALATION SCH (08:04)
[2022-11-06] MEDS: amLODIPine 10 MG TAB PO SCH (08:31)
[2022-11-06] MEDS: METOPROLOL TARTRATE 25 MG TAB PO SCH ×2 (08:31→18:30)
[2022-11-06] MEDS: CHOLECALCIFEROL 25 MCG (1000 IU) TABLET PO SCH (08:31)
[2022-11-06] MEDS: ASCORBIC ACID 500 MG TAB PO SCH (08:32)
[2022-11-06] MEDS: PANTOPRAZOLE 40 MG TABLET PO SCH (08:32)
[2022-11-06] MEDS: ZINC SULFATE 220 MG CAP PO SCH (08:32)
[2022-11-06] MEDS: APIXABAN 5 MG TAB PO SCH ×2 (08:32→22:10)
--- NOTE | 2022-11-06 08:41 | P.HPIM ---
History of Present Illness This is a pleasant 82 years old male with past medical history of hypertension, hyperlipidemia, COPD Patient was recently discharged from this facility 10/26-10/31 for non-STEMI, coated infection and paroxysmal atrial fibrillation Patient currently sitting up in bed, fully awake and oriented, mildly tachypneic, no significant respiratory distress, he can talk freely with no much use of accessory respiratory muscles. Patient presents because of worsening dyspnea. He was on home oxygen but he could not tell how many liters. He denies chest pain. He has kind of dry coughing. No diarrhea abdominal pain or vomiting, no urinary complaints, no headache weakness or numbness. He denies smoking alcohol or illicit drugs He is requiring BiPAP therapy this morning, On the presentation shift patient is hypoxic saturating 87% on nonrebreather and she was placed on BiPAP and saturation improved to high 90s. Patient is tachypneic, 22-25 breaths per minute That showed mild leukocytosis of 11.6. Rest of CBC, INR is unremarkable. Creatinine normal 0.6. Potassium 3.3. Carbon dioxide 20. Lactic acid elevated 2.7 Evidence with hypocalcemia at 5.9. Elevated troponin 0.06 and 0.05, compared to normal troponin upon discharge last time and about 10 days ago at 0.037 and 0.034 Coronavirus detected while the flow was a and V are negative EKG showed normal sinus rhythm at [address]-T changes Chest x-ray: Pulmonary infiltrate is increased compared to last exam and consistent with worsening pneumonia Mildly elevated troponin most likely secondary to Covid infection and/or CHF In the emergency room patient received breathing treatment and Solu-Medrol he was admitted with pulmonary team consult Review of Systems Review of systems CONSTITUTIONAL: No fever, no malaise, no fatigue. HEENT: No recent visual problems or hearing problems. Denied any sore throat. CARDIOVASCULAR: No orthopnea, PND, no palpitations, no syncope. PULMONARY: No chest wall tenderness, no hemoptysis. GASTROINTESTINAL: No diarrhea, no nausea, no vomiting, no abdominal pain. Normoactive bowel sounds. NEUROLOGICAL: No headaches, no weakness, no numbness. HEMATOLOGICAL: Denies any bleeding or petechiae. GENITOURINARY: Denies any burning micturition, frequency, or urgency. MUSCULOSKELETAL/RHEUMATOLOGICAL: Denies any joint pain, swelling, or any muscle pain. ENDOCRINE: Denies any polyuria or polydipsia. Past Medical History Past Medical History: Hyperlipidemia, Hypertension Additional Past Medical History / Comment(s): neuropathy, glaucoma and OA History of Any Multi-Drug Resistant Organisms: None Reported Past Surgical History: No Surgical Hx Reported Additional Past Surgical History / Comment(s): colonoscopy Past Psychological History: No Psychological Hx Reported Smoking Status: Former smoker Past Alcohol Use History: Occasional Past Drug Use History: None Reported Medications and Allergies Home Medications Medication Instructions Recorded Confirmed Type Latanoprost [Xalatan 0.005%] 1 drop LEFT EYE HS 04/07/21 11/05/22 History Omeprazole 40 mg PO DAILY 04/07/21 11/05/22 History Simvastatin [Zocor] 20 mg PO HS 04/07/21 11/05/22 History amLODIPine [Norvasc] 10 mg PO DAILY 04/07/21 11/05/22 History guaiFENesin-DM 600/30MG [Mucinex 1 tab PO HS 10/26/22 11/05/22 History Dm] Apixaban [Eliquis] 5 mg PO BID #60 tab 10/27/22 11/05/22 Rx Acetaminophen Tab [Tylenol] 650 mg PO Q6HR PRN tab 10/31/22 11/05/22 Rx Albuterol Inhaler [Ventolin Hfa 1 puff INHALATION RT-QID PRN #1 10/31/22 11/05/22 Rx Inhaler] each Ascorbic Acid [Vitamin C] 500 mg PO DAILY #30 tab 10/31/22 11/05/22 Rx Budesonide-Formot 160-4.5 Mcg 2 puff INHALATION RT-BID #1 each 10/31/22 11/05/22 Rx [Symbicort 160-4.5 Mcg Inhaler] Cholecalciferol [Vitamin D3 (25 50 mcg PO DAILY #30 tab 10/31/22 11/05/22 Rx Mcg = 1000 Iu)] Gabapentin [Neurontin] 100 mg PO TID PRN #6 cap 10/31/22 11/05/22 Rx Metoprolol Tartrate [Lopressor] 25 mg PO TID #90 tab 10/31/22 11/05/22 Rx Zinc Sulfate [Orazinc] 220 mg PO DAILY #30 cap 10/31/22 11/05/22 Rx predniSONE [Deltasone] See Taper PO DAILY 11/05/22 11/05/22 History Allergies Allergy/AdvReac Type Severity Reaction Status Date / Time Penicillins Allergy Unknown Verified 11/05/22 21:09 Sulfa (Sulfonamide Allergy Unknown Verified 11/05/22 21:09 Antibiotics) Physical Exam Vitals: Vital Signs Temp Pulse Resp BP Pulse Ox FiO2 11/06/22 08:20 90 L 11/06/22 08:07 100 11/06/22 06:00 69 18 117/74 96 11/06/22 04:23 100 11/06/22 04:21 64 18 124/73 96 11/06/22 04:00 66 25 H 120/74 96 11/06/22 00:41 100 11/05/22 23:00 56 L 25 H 129/85 96 11/05/22 21:00 60 25 H 122/75 97 11/05/22 20:43 59 L 22 119/73 97 11/05/22 19:13 100 11/05/22 18:46 97.5 F L 68 22 132/78 87 L Intake and Output 11/05/22 11/06/22 11/06/22 22:59 06:59 14:59 Other: Weight 90.718 kg GENERAL: The patient is alert and oriented x3, not in any acute distress. Well developed, well nourished. HEENT: Pupils are round and equally reacting to light. EOMI. No scleral icterus. No conjunctival pallor. Normocephalic, atraumatic. No pharyngeal erythema. No thyromegaly. CARDIOVASCULAR: S1 and S2 present. No murmurs, rubs, or gallops. -PULMONARY: Chest is clear to auscultation, no wheezing. Bilateral crepitation and decreased breath sounds especially on the basis. Mildly tachypneic ABDOMEN: Soft, nontender, nondistended, normoactive bowel sounds. No palpable organomegaly. MUSCULOSKELETAL: No joint swelling or deformity. EXTREMITIES: No cyanosis, clubbing, or pedal edema. NEUROLOGICAL: Gross neurological examination did not reveal any focal deficits. SKIN: No rashes. no petechiae. Results CBC & Chem 7: 11/05/22 19:20 11/05/22 19:20 Labs: Abnormal Lab Results - Last 24 Hours (Table) 11/05/22 11/05/22 11/05/22 Range/Units 19:20 19:20 19:20 WBC 11.6 H (3.8-10.6) k/uL Neutrophils # 9.7 H (1.3-7.7) k/uL Lymphocytes # 0.8 L (1.0-4.8) k/uL APTT (22.0-30.0) sec Potassium 3.3 L (3.5-5.1) mmol/L Chloride 118 H (98-107) mmol/L Carbon Dioxide 20 L (22-30) mmol/L BUN 22 H (9-20) mg/dL Creatinine 0.61 L (0.66-1.25) mg/dL Glucose 124 H (74-99) mg/dL Plasma Lactic Acid Andrey (0.7-2.0) mmol/L Calcium 5.9 L* (8.4-10.2) mg/dL Troponin I 0.061 H* (0.000-0.034) ng/mL Total Protein 4.5 L (6.3-8.2) g/dL Albumin 2.1 L (3.5-5.0) g/dL SARS-CoV-2 (PCR) (Not Detectd) 11/05/22 11/05/22 11/05/22 Range/Units 19:26 19:43 20:55 WBC (3.8-10.6) k/uL Neutrophils # (1.3-7.7) k/uL Lymphocytes # (1.0-4.8) k/uL APTT 19.6 L (22.0-30.0) sec Potassium (3.5-5.1) mmol/L Chloride (98-107) mmol/L Carbon Dioxide (22-30) mmol/L BUN (9-20) mg/dL Creatinine (0.66-1.25) mg/dL Glucose (74-99) mg/dL Plasma Lactic Acid Andrey 2.7 H* (0.7-2.0) mmol/L Calcium (8.4-10.2) mg/dL Troponin I (0.000-0.034) ng/mL Total Protein (6.3-8.2) g/dL Albumin (3.5-5.0) g/dL SARS-CoV-2 (PCR) Detected A (Not Detectd) 11/05/22 11/05/22 Range/Units 21:24 22:51 WBC (3.8-10.6) k/uL Neutrophils # (1.3-7.7) k/uL Lymphocytes # (1.0-4.8) k/uL APTT (22.0-30.0) sec Potassium (3.5-5.1) mmol/L Chloride (98-107) mmol/L Carbon Dioxide (22-30) mmol/L BUN (9-20) mg/dL Creatinine (0.66-1.25) mg/dL Glucose (74-99) mg/dL Plasma Lactic Acid Andrey (0.7-2.0) mmol/L Calcium (8.4-10.2) mg/dL Troponin I 0.059 H* 0.060 H* (0.000-0.034) ng/mL Total Protein (6.3-8.2) g/dL Albumin (3.5-5.0) g/dL SARS-CoV-2 (PCR) (Not Detectd) Assessment and Plan Assessment: Acute on chronic hypoxic respiratory failure Bilateral pulmonary infiltrates suspicious bilateral covid pneumonia, rule out bacterial infection as well, CHF felt less likely Hypertension Hyperlipidemia Paroxysmal atrial fibrillation on liquids History of obstructive sleep apnea Recent history of cough with Peripheral neuropathy Plan: Continue with oxygen and BiPAP as needed Starcontinue with steroids, currently is on some drop 40 mg Pulmonary consult follow-up inflammatory markers and procalcitonin elevated troponin most likely secondary to hypoxia and covid infection , we will consult cardiology team in view of recent non stemi and stent placement Monitor calcium level Labs and medication were reviewed.. Continue same treatment. Continue with symptomatic treatment. Resume home medication. Monitor labs and vitals. DVT and GI prophylaxis. Further recommendations as per clinical course of the patient DVT prophylaxis:Eliquis GI Prophylaxis: Ppi PT/Deferred prognosis is guarded
[2022-11-06 09:20] LABS: Basophils # (A) 0.1 k/uL (0-0.2); Basophils % (A) 1 %; Eosinophils % (A) 0 %; HCT 47.1 % (39.0-53.0); HGB 15.6 gm/dL (13.0-17.5); Lymphocytes # (A) 0.5 k/uL (1.0-4.8); Lymphocytes % (A) 4 %; MCH 32.9 pg (25.0-35.0); MCHC 33.1 g/dL (31.0-37.0); MCV 99.3 fL (80.0-100.0); Mean Platelet Volume 7.9; Monocytes # (A) 0.4 k/uL (0-1.0); Monocytes % (A) 3 %; Neutrophils # (A) 11.6 k/uL (1.3-7.7); Neutrophils % (A) 91 %; Platelet Count 352 k/uL (150-450); RBC 4.74 m/uL (4.30-5.90); RDW 12.5 % (11.5-15.5); WBC 12.7 k/uL (3.8-10.6)
[2022-11-06 09:42] LABS: Calcium 9.3 mg/dL (8.4-10.2); Potassium 5.3 mmol/L (3.5-5.1)
[2022-11-06 10:26] LABS: C Reactive Protein 2.8 mg/dL (<1.0)
[2022-11-06] MEDS ORDERED: FUROSEMIDE 10 MG/ML 4 ML VIAL IV STA (12:07)
[2022-11-06] MEDS ORDERED: RX INFO: IV CONTRAST WAS GIVEN 1 EACH MISC MISCELLANE PRN (12:17)
--- NOTE | 2022-11-06 12:31 | P.CNPUL ---
History of Present Illness Consult date: 11/06/22 Requesting physician: Roque Velarde Reason for consult: dyspnea, pneumonia Chief complaint: Shortness of breath. History of present illness: This is an 82-year-old white male with history of interstitial lung disease/pulmonary fibrosis, hypertension, COPD, and the patient was recently admitted to [facility] on 10/26/2022 and he was discharged on non-ST elevation myocardial infarction and COVID-19 infection with paroxysmal atrial fibrillation patient was discharged home on few liters nasal cannula, and he was doing well until yesterday, patient developed worsening shortness of breath, cough, he had no fever, no chills, no chest pain. His cough was described as dry cough. No nausea no vomiting no abdominal pain, no diarrhea. Patient was brought into the ER, and he was noted to be hypoxic. Even on a nonrebreather mask his O2 saturation was 87%. Patient is also noted tachypnea, placed on BiPAP, 100% FiO2, and he seemed to be almost BiPAP dependent desaturated easily off BiPAP in spite of using airvo. Chest x-ray showed slight worsening of his pulmonary infiltrates and interstitial findings from previous examination. However he had a relatively normal BNP level, and his pro-calcitonin level is pending. D-dimer was elevated at 10, however the patient has been on eliquis. Questioning compliance, hence I'm recommending a CT angiogram of the chest to be done today. Patient tested again positive for COVID-19 with positive PCR, and he will be placed on the COVID-19 cocktail, may consider adding Baricitinib for this patient if his pro-calcitonin level is normal. Otherwise may consider adding antibiotics if his pro-calcitonin level is abnormal. In the meantime the patient will be placed on bronchodilators, steroids, COVID-19 cocktail, and he will be admitted to the ICU considering the patient is quite hypoxic and requiring BiPAP on the percent FiO2 On his recent admission, patient was managed by Dr. Neely, we were not consulted on this patient during his admission in spite of the fact that the patient is known to have history of interstitial lung disease, and he normally sees Dr. Diaz on a regular basis. Patient didn't require discharged on oxygen at 4 L/m. And presently now he is back to the hospital with a much worsening picture and worsening hypoxia. Review of Systems CONSTITUTIONAL: Generalized weakness, no fever no chills. HEENT: Negative. CARDIOVASCULAR: Negative PULMONARY: As noted in HPI mostly dry cough and shortness of breath GASTROINTESTINAL: Negative NEUROLOGICAL: Negative. HEMATOLOGICAL: Negative. GENITOURINARY: Negative MUSCULOSKELETAL/RHEUMATOLOGICAL: Negative ENDOCRINE: Negative Past Medical History Past Medical History: Hyperlipidemia, Hypertension Additional Past Medical History / Comment(s): neuropathy, glaucoma and OA History of Any Multi-Drug Resistant Organisms: None Reported Past Surgical History: No Surgical Hx Reported Additional Past Surgical History / Comment(s): colonoscopy Past Psychological History: No Psychological Hx Reported Smoking Status: Former smoker Past Alcohol Use History: Occasional Past Drug Use History: None Reported Medications and Allergies Home Medications Medication Instructions Recorded Confirmed Type Latanoprost [Xalatan 0.005%] 1 drop LEFT EYE HS 04/07/21 11/05/22 History Omeprazole 40 mg PO DAILY 04/07/21 11/05/22 History Simvastatin [Zocor] 20 mg PO HS 04/07/21 11/05/22 History amLODIPine [Norvasc] 10 mg PO DAILY 04/07/21 11/05/22 History guaiFENesin-DM 600/30MG [Mucinex 1 tab PO HS 10/26/22 11/05/22 History Dm] Apixaban [Eliquis] 5 mg PO BID #60 tab 10/27/22 11/05/22 Rx Acetaminophen Tab [Tylenol] 650 mg PO Q6HR PRN tab 10/31/22 11/05/22 Rx Albuterol Inhaler [Ventolin Hfa 1 puff INHALATION RT-QID PRN #1 10/31/22 11/05/22 Rx Inhaler] each Ascorbic Acid [Vitamin C] 500 mg PO DAILY #30 tab 10/31/22 11/05/22 Rx Budesonide-Formot 160-4.5 Mcg 2 puff INHALATION RT-BID #1 each 10/31/22 11/05/22 Rx [Symbicort 160-4.5 Mcg Inhaler] Cholecalciferol [Vitamin D3 (25 50 mcg PO DAILY #30 tab 10/31/22 11/05/22 Rx Mcg = 1000 Iu)] Gabapentin [Neurontin] 100 mg PO TID PRN #6 cap 10/31/22 11/05/22 Rx Metoprolol Tartrate [Lopressor] 25 mg PO TID #90 tab 10/31/22 11/05/22 Rx Zinc Sulfate [Orazinc] 220 mg PO DAILY #30 cap 10/31/22 11/05/22 Rx predniSONE [Deltasone] See Taper PO DAILY 11/05/22 11/05/22 History Allergies Allergy/AdvReac Type Severity Reaction Status Date / Time Penicillins Allergy Unknown Verified 11/05/22 21:09 Sulfa (Sulfonamide Allergy Unknown Verified 11/05/22 21:09 Antibiotics) Physical Exam Vitals: Vital Signs Temp Pulse Resp BP Pulse Ox FiO2 11/06/22 11:00 98.1 F 61 28 H 121/75 98 100 11/06/22 10:00 67 20 113/80 96 11/06/22 09:00 74 20 122/70 95 11/06/22 08:37 92 L 11/06/22 08:35 100 11/06/22 08:30 82 L 11/06/22 08:20 90 L 11/06/22 08:07 100 11/06/22 08:00 75 18 116/76 97 11/06/22 07:00 70 18 123/83 95 11/06/22 06:00 69 18 117/74 96 11/06/22 04:23 100 11/06/22 04:21 64 18 124/73 96 11/06/22 04:00 66 25 H 120/74 96 11/06/22 00:41 100 11/05/22 23:00 56 L 25 H 129/85 96 11/05/22 21:00 60 25 H 122/75 97 11/05/22 20:43 59 L 22 119/73 97 11/05/22 19:13 100 11/05/22 18:46 97.5 F L 68 22 132/78 87 L Intake and Output 11/05/22 11/06/22 11/06/22 22:59 06:59 14:59 Output Total 0 Balance 0 Output: Urine 0 Other: Weight 90.718 kg Physical Exam: Revealed an 82-year-old white male seen in the ER, on BiPAP, 100% FiO2 in slight respiratory distress. Head: Atraumatic, normocephalic. HEENT:[Neck is supple.] [No neck masses.] [No thyromegaly.] [No JVD.] Chest: [Fine crackles at the bases no rhonchi no wheezes Cardiac Exam: [Normal S1 and S2, no S3 gallop, no murmur.] Abdomen: [Soft, nontender, no megaly, no rebound, no guarding, normal bowel sounds.] Extremities: [No clubbing, no edema, no cyanosis.] Neurological Exam: [No focal neurologic deficit.] Alert oriented 3. Psychiatric: Normal mood affect and normal mental status examination. Skin: No rashes. Results - Laboratory Findings CBC and BMP: 11/06/22 08:57 11/06/22 08:57 PT/INR, D-dimer PT 11.6 sec (9.0-12.0) 11/05/22 20:55 INR 1.1 (<1.2) 11/05/22 20:55 D-Dimer 10.00 mg/L FEU (<0.60) H 11/06/22 08:57 Abnormal lab findings: Abnormal Labs 11/05/22 11/05/22 11/05/22 19:20 19:20 19:20 WBC 11.6 H Neutrophils # 9.7 H Lymphocytes # 0.8 L APTT D-Dimer Potassium 3.3 L Chloride 118 H Carbon Dioxide 20 L BUN 22 H Creatinine 0.61 L Glucose 124 H Plasma Lactic Acid Andrey Calcium 5.9 L* Lactate Dehydrogenase Troponin I 0.061 H* C-Reactive Protein Total Protein 4.5 L Albumin 2.1 L SARS-CoV-2 (PCR) 11/05/22 11/05/22 11/05/22 19:26 19:43 20:55 WBC Neutrophils # Lymphocytes # APTT 19.6 L D-Dimer Potassium Chloride Carbon Dioxide BUN Creatinine Glucose Plasma Lactic Acid Andrey 2.7 H* Calcium Lactate Dehydrogenase Troponin I C-Reactive Protein Total Protein Albumin SARS-CoV-2 (PCR) Detected A 11/05/22 11/05/22 11/06/22 21:24 22:51 08:57 WBC 12.7 H Neutrophils # 11.6 H Lymphocytes # 0.5 L APTT D-Dimer Potassium Chloride Carbon Dioxide BUN Creatinine Glucose Plasma Lactic Acid Andrey Calcium Lactate Dehydrogenase Troponin I 0.059 H* 0.060 H* C-Reactive Protein Total Protein Albumin SARS-CoV-2 (PCR) 11/06/22 11/06/22 08:57 08:57 WBC Neutrophils # Lymphocytes # APTT D-Dimer 10.00 H Potassium 5.3 H Chloride Carbon Dioxide BUN 35 H Creatinine Glucose 187 H Plasma Lactic Acid Andrey Calcium Lactate Dehydrogenase 1311 H Troponin I C-Reactive Protein 2.8 H Total Protein Albumin SARS-CoV-2 (PCR) - Diagnostic Findings CT scan - chest: image reviewed (As noted in HPI) Assessment and Plan Assessment: Impression: Acute on chronic hypoxic respiratory failure, multifactorial Worsening COVID-19 pneumonia Severe interstitial lung disease/pulmonary fibrosis diagnosed over a year ago. 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 Check venous Doppler of lower extremities Pro calcitonin level, if elevated add antibiotics, if normal will add Baricitinib Continue steroids/Solu-Medrol. Continue bronchodilators. Continue COVID-19 cocktail. Resume eliquis. GI and DVT prophylaxis. Overall prognosis is poor and guarded, if patient's condition deteriorates, patient may need to be intubated and placed on mechanical ventilation. We will continue to follow Time with Patient: Greater than 30
--- NOTE | 2022-11-06 14:31 | CT ---
EXAMINATION TYPE: CT angio chest DATE OF EXAM: 11/06/2022 COMPARISON: Chest x-ray from yesterday and older studies. CTA chest April 07, 2021 HISTORY: Pulmonary embolism CT DLP: 1099.4 mGycm. Automated Exposure Control for Dose Reduction was Utilized. CONTRAST: CTA scan of the thorax is performed without and with IV Contrast, patient injected with 100 ml mL of Isovue 370, pulmonary embolism protocol. MIP Images are created on CT scanner and reviewed. FINDINGS: LUNGS: Peripheral reticulation and fibrotic change bilaterally is redemonstrated with interval progre ssion from the 2020 study noted. There is no groundglass opacities and intralobular septal thickening throughout the lower lungs with progression of central bronchiectasis and honeycombing identified. T here is relative sparing of the upper lungs noted. Overall low lung volumes redemonstrated. MEDIASTINUM: There is satisfactory enhancement of the pulmonary artery and its branches, there is no CT evidence for pulmonary embolism. Enlarged main pulmonary artery at 3.3 cm axial image [address] findings suggesting underlying pulmonary artery hypertension. There are no greater than 1 cm hilar or mediastinal lymph nodes. No cardiomegaly or pericardial effusion is seen. Coronary a rtery calcification is present. OTHER: Tiny dependent gallstones are redemonstrated. IMPRESSION: 1. No CT evidence for acute pulmonary embolism. 2. Low lung volumes and moderate to severe parenchymal fibrotic changes greatest in the mid to lower lungs with interval progression from March 2021 study. UIP is in differential. Other etiologies not excluded. Areas of acute infiltrate and/or edema on background chronic changes cannot be excluded.
[2022-11-06] MEDS: methylPREDNISolone SOD SUCCI 125 MG/2 ML VIAL IV SCH ×2 (18:19→22:10)
[2022-11-06] MEDS: guaiFENesin-DM 600/30MG 1 EACH TAB.ER.12H PO SCH (22:10)
[2022-11-06] MEDS: ATORVASTATIN 10 MG TAB PO SCH (22:10)
[2022-11-06] MEDS: LATANOPROST 0.005% OPHTH DROPS 2.5 ML BTL LEFT EYE SCH (23:39)
[2022-11-07] MEDS: ALBUTEROL HFA INHALER INHALATION SCH ×7 (00:27→23:25)
[2022-11-07] MEDS: METOPROLOL TARTRATE 25 MG TAB PO SCH ×5 (01:48→23:06)
[2022-11-07] MEDS: methylPREDNISolone SOD SUCCI 125 MG/2 ML VIAL IV SCH ×4 (03:39→20:50)
[2022-11-07 06:00] LABS: Basophils # (A) 0.1 k/uL (0-0.2); Basophils % (A) 1 %; Eosinophils % (A) 0 %; HCT 44.7 % (39.0-53.0); HGB 15.1 gm/dL (13.0-17.5); Lymphocytes # (A) 0.5 k/uL (1.0-4.8); Lymphocytes % (A) 4 %; MCH 33.3 pg (25.0-35.0); MCHC 33.7 g/dL (31.0-37.0); MCV 98.8 fL (80.0-100.0); Monocytes # (A) 0.4 k/uL (0-1.0); Monocytes % (A) 3 %; Neutrophils # (A) 12.7 k/uL (1.3-7.7); Neutrophils % (A) 91 %; Platelet Count 351 k/uL (150-450); RBC 4.53 m/uL (4.30-5.90); RDW 12.5 % (11.5-15.5)
[2022-11-07 06:16] LABS: Potassium 4.6 mmol/L (3.5-5.1)
--- NOTE | 2022-11-07 08:10 | P.CRDCN ---
History of Present Illness History of present illness: HISTORY OF PRESENT ILLNESS: This is a 82-year-old male with a past medical history significant for hypertension, hyperlipidemia, neuropathy, recent COVID, pulmonary fibrosis and former nicotine dependence. Patient does not follow with a rehabilitation physician. Patient was seen prior admission 2 weeks ago for abnormal troponins and weakness. He had a cough and fevers and was found to have mildly elevated troponins. He was discharged home however had continued shortness breath and therefore presented back to the emergency department. He denies any chest pain or pressure. Denies any lightheadedness. He was found to be hypoxic and placed on BiPAP with improvement in oxygen saturations up to the mid 90s. Chest CTA was performed which showed no PE with low lung volumes and moderate to severe parenchymal fibrotic changes with progression from March 2021. White blood cell 11.6, hemoglobin 15.2, potassium 3.3, creatinine 0.6, troponin 0.06, proBNP 636, albumin 2.1. Previous echo showing EF 50-55% with enlarged right ventricle and elevated RVSP of 53. REVIEW OF SYSTEMS: At the time of my exam: CONSTITUTIONAL: Denies fever or chills. HEENT: Denies blurred vision, vision changes, or eye pain. Denies hemoptysis CARDIOVASCULAR: Denies chest pain. Denies orthopnea. Denies PND. Denies palpitations RESPIRATORY: +Shortness of breath. GASTROINTESTINAL: Denies abdominal pain. Denies nausea or vomiting. HEMATOLOGIC: Denies bleeding disorders. GENITOURINARY: Denies any blood in urine. SKIN: Denies pruitis. Denies rash. PHYSICAL EXAM: VITAL SIGNS: Reviewed. GENERAL: Well-developed in no acute distress. HEENT: Head is normocephalic. Pupils are equal, round. Sclerae anicteric. Mucous membranes of the mouth are moist. Neck supple. No JVD or thyromegaly LUNGS: Respirations even and unlabored. Bilateral dry crackles. HEART: Regular rate and rhythm. S1 and S2 heard. ABDOMEN: Soft. Nondistended. Nontender. EXTREMITIES: Normal range of motion. No clubbing or cyanosis. Peripheral pulses intact. No lower extremity edema NEUROLOGIC: Awake and alert. Oriented x 3. ASSESSMENT: Acute on chronic hypoxic respiratory failure related to pulmonary fibrosis and recent COVID-19 infection Pulmonary hypertension likely group 3 related to hypoxia Right ventricular dilation noted on echo Abnormal troponins, type 2 mechanism related to hypoxia Hypertension Hyperlipidemia Neuropathy Former nicotine dependence Paroxysmal Afib, on anticoagulation, currently sinus rhythm PLAN: Continue with supportive care with anticoagulation for his atrial fibrillation. Continue with Metoprolol for now however if beta sangeeta felt to be causing bronchospasm may consider changing to calcium channel sangeeta. Elevated troponins not suggestive of acute coronary syndrome. We will add Revation for pulmonary hypertension and right ventricular failure. Continue supportive care. Prognosis guarded. Past Medical History Past Medical History: Hyperlipidemia, Hypertension Additional Past Medical History / Comment(s): neuropathy, glaucoma and OA History of Any Multi-Drug Resistant Organisms: None Reported Past Surgical History: No Surgical Hx Reported Additional Past Surgical History / Comment(s): colonoscopy Smoking Status: Former smoker Medications and Allergies Home Medications Medication Instructions Recorded Confirmed Type Latanoprost [Xalatan 0.005%] 1 drop LEFT EYE HS 04/07/21 11/05/22 History Omeprazole 40 mg PO DAILY 04/07/21 11/05/22 History Simvastatin [Zocor] 20 mg PO HS 04/07/21 11/05/22 History amLODIPine [Norvasc] 10 mg PO DAILY 04/07/21 11/05/22 History guaiFENesin-DM 600/30MG [Mucinex 1 tab PO HS 10/26/22 11/05/22 History Dm] Apixaban [Eliquis] 5 mg PO BID #60 tab 10/27/22 11/05/22 Rx Acetaminophen Tab [Tylenol] 650 mg PO Q6HR PRN tab 10/31/22 11/05/22 Rx Albuterol Inhaler [Ventolin Hfa 1 puff INHALATION RT-QID PRN #1 10/31/22 11/05/22 Rx Inhaler] each Ascorbic Acid [Vitamin C] 500 mg PO DAILY #30 tab 10/31/22 11/05/22 Rx Budesonide-Formot 160-4.5 Mcg 2 puff INHALATION RT-BID #1 each 10/31/22 11/05/22 Rx [Symbicort 160-4.5 Mcg Inhaler] Cholecalciferol [Vitamin D3 (25 50 mcg PO DAILY #30 tab 10/31/22 11/05/22 Rx Mcg = 1000 Iu)] Gabapentin [Neurontin] 100 mg PO TID PRN #6 cap 10/31/22 11/05/22 Rx Metoprolol Tartrate [Lopressor] 25 mg PO TID #90 tab 10/31/22 11/05/22 Rx Zinc Sulfate [Orazinc] 220 mg PO DAILY #30 cap 10/31/22 11/05/22 Rx predniSONE [Deltasone] See Taper PO DAILY 11/05/22 11/05/22 History Allergies Allergy/AdvReac Type Severity Reaction Status Date / Time Penicillins Allergy Unknown Verified 11/05/22 21:09 Sulfa (Sulfonamide Allergy Unknown Verified 11/05/22 21:09 Antibiotics) Physical Exam Vitals: Vital Signs Temp Pulse Pulse Resp BP BP Pulse Ox 11/07/22 06:00 55 L 20 116/66 91 L 11/07/22 05:00 56 L 16 116/70 94 L 11/07/22 04:00 97.7 F 53 L 7 L 115/75 94 L 11/07/22 03:20 94 L 11/07/22 03:00 53 L 12 122/72 93 L 11/07/22 02:00 54 L 20 124/73 95 11/07/22 01:00 55 L 18 126/74 93 L 11/07/22 00:28 11/07/22 00:00 97.3 F L 53 L 22 126/71 96 11/06/22 23:00 54 L 10 L 122/75 95 11/06/22 22:44 54 L 15 122/75 94 L 11/06/22 22:00 52 L 19 126/81 92 L 11/06/22 21:10 11/06/22 21:00 51 L 23 114/95 94 L 11/06/22 20:00 97.7 F 61 84 H 133/82 89 L 11/06/22 19:00 63 20 106/81 95 11/06/22 18:00 67 24 121/81 95 11/06/22 17:00 64 23 110/71 93 L 11/06/22 16:00 97.7 F 58 L 20 119/75 95 11/06/22 15:27 11/06/22 15:00 63 23 125/81 95 11/06/22 14:00 61 24 124/71 94 L 11/06/22 13:54 11/06/22 13:00 59 L 22 124/71 98 11/06/22 12:37 55 L 25 H 98 03/16/23 12:00 55 L 22 118/72 98 11/06/22 11:45 63 24 128/75 96 11/06/22 11:30 62 24 119/71 98 11/06/22 11:15 98.1 F 61 26 H 119/70 95 11/06/22 11:00 98.1 F 61 28 H 121/75 98 11/06/22 10:00 67 20 113/80 96 11/06/22 09:00 74 20 122/70 95 11/06/22 08:37 92 L 11/06/22 08:35 11/06/22 08:30 82 L 11/06/22 08:20 90 L 11/06/22 08:07 FiO2 11/07/22 06:00 11/07/22 05:00 11/07/22 04:00 11/07/22 03:20 92 11/07/22 03:00 11/07/22 02:00 11/07/22 01:00 11/07/22 00:28 80 11/07/22 00:00 80 11/06/22 23:00 11/06/22 22:44 11/06/22 22:00 11/06/22 21:10 80 11/06/22 21:00 11/06/22 20:00 80 11/06/22 19:00 80 11/06/22 18:00 80 11/06/22 17:00 80 11/06/22 16:00 80 11/06/22 15:27 80 11/06/22 15:00 80 11/06/22 14:00 80 11/06/22 13:54 80 11/06/22 13:00 100 11/06/22 12:37 11/06/22 12:00 100 11/06/22 11:45 11/06/22 11:30 11/06/22 11:15 100 11/06/22 11:00 100 11/06/22 10:00 11/06/22 09:00 11/06/22 08:37 11/06/22 08:35 100 11/06/22 08:30 11/06/22 08:20 11/06/22 08:07 100 Intake and Output 11/06/22 11/07/22 11/07/22 22:59 06:59 14:59 Intake Total 940 540 Output Total 670 201 Balance 270 339 Intake: Oral 940 540 Output: Urine 670 200 Stool 1 Other: Voiding Method Urinal Urinal # Voids 1 Weight 90.718 kg 89.4 kg Results 11/07/22 05:38 11/07/22 05:38 Cardiac Enzymes 11/06/22 Range/Units 08:57 Lactate Dehydrogenase 1311 H (313-618) U/L CBC 11/06/22 11/07/22 Range/Units 08:57 05:38 WBC 12.7 H 14.0 H (3.8-10.6) k/uL RBC 4.74 4.53 (4.30-5.90) m/uL Hgb 15.6 15.1 (13.0-17.5) gm/dL Hct 47.1 44.7 (39.0-53.0) % Plt Count 352 351 (150-450) k/uL Comprehensive Metabolic Panel 11/06/22 11/07/22 Range/Units 08:57 05:38 Sodium 142 137 (137-145) mmol/L Potassium 5.3 H 4.6 (3.5-5.1) mmol/L Chloride 106 101 (98-107) mmol/L Carbon Dioxide 29 27 (22-30) mmol/L BUN 35 H 44 H (9-20) mg/dL Creatinine 1.09 1.13 (0.66-1.25) mg/dL Glucose 187 H 178 H (74-99) mg/dL Calcium 9.3 9.0 (8.4-10.2) mg/dL Current Medications Generic Name Dose Route Start Last Admin Trade Name Kevinq PRN Reason Stop Dose Admin Acetaminophen 650 mg 11/06/22 02:15 Acetaminophen Tab 325 Mg Tab PO Q6HR PRN Fever and/ or Mild Pain (1-3) Albuterol Sulfate 2 puff 11/06/22 00:00 11/07/22 03:38 Albuterol Hfa Inhaler INHALATION 2 puff RT-Q4H ELOISA Administration Amlodipine Besylate 10 mg 11/06/22 09:00 11/06/22 08:31 Amlodipine 10 Mg Tab PO 10 mg DAILY ELOISA Administration Apixaban 5 mg 11/06/22 09:00 11/06/22 22:10 Apixaban 5 Mg Tab PO 5 mg BID ELOISA Administration Protocol Ascorbic Acid 500 mg 11/06/22 09:00 11/06/22 08:32 Ascorbic Acid 500 Mg Tab PO 500 mg DAILY ELOISA Administration Atorvastatin Calcium 10 mg 11/06/22 21:00 11/06/22 22:10 Atorvastatin 10 Mg Tab PO 10 mg HS ELOISA Administration Budesonide/Formoterol Fumarate 2 puff 11/06/22 08:00 11/06/22 21:01 Symbicort 160-4.5 Mcg Inhaler INHALATION 2 puff RT-BID ELOISA Administration Cholecalciferol 50 mcg 11/06/22 09:00 11/06/22 08:31 Cholecalciferol 25 Mcg (1000 Iu) Tablet PO 50 mcg DAILY ELOISA Administration Gabapentin 100 mg 11/06/22 02:15 Gabapentin 100 Mg Cap PO TID PRN Pain Guaifenesin/Dextromethorphan 1 each 11/06/22 21:00 11/06/22 22:10 Guaifenesin-Dm 600/30mg 1 Each Tab.Er.12h PO 1 each HS ELOISA Administration Latanoprost 1 drops 11/06/22 21:00 11/06/22 23:39 Latanoprost 0.005% Ophth Drops 2.5 Ml Btl LEFT EYE 1 drops HS ELOISA Administration Methylprednisolone Sodium Succinate 60 mg 11/06/22 15:00 11/07/22 03:39 Methylprednisolone Sod Succi 125 Mg/2 Ml Vial IV 60 mg Q6H ELOISA Administration Metoprolol Tartrate 25 mg 11/06/22 09:00 11/07/22 01:48 Metoprolol Tartrate 25 Mg Tab PO Not Given TID [facility] Miscellaneous Information 1 each 11/06/22 12:17 Rx Info: Iv Contrast Was Given 1 Each Misc MISCELLANE 11/08/22 12:17 DAILY PRN Per Protocol Naloxone HCl 0.2 mg 11/05/22 20:52 Naloxone 0.4 Mg/Ml 1 Ml Vial IV Q2M PRN Opioid Reversal Pantoprazole Sodium 40 mg 11/06/22 09:00 11/06/22 08:32 Pantoprazole 40 Mg Tablet PO 40 mg DAILY ELOISA Administration Tiotropium [place] 1 puff 11/06/22 00:00 11/06/22 08:04 Tiotropium 2.5 Mcg Inhaler INHALATION 1 puff RT-DAILY ELOISA Administration Zinc Sulfate 220 mg 11/06/22 09:00 11/06/22 08:32 Zinc Sulfate 220 Mg Cap PO 220 mg DAILY ELOISA Administration Intake and Output 11/06/22 11/07/22 11/07/22 22:59 06:59 14:59 Intake Total 940 540 Output Total 670 201 Balance 270 339 Intake: Oral 940 540 Output: Urine 670 200 Stool 1 Other: Voiding Method Urinal Urinal # Voids 1 Weight 90.718 kg 89.4 kg 11/07/22 05:38 11/07/22 05:38
--- NOTE | 2022-11-07 08:41 | XR ---
EXAMINATION TYPE: XR chest 1V portable DATE OF EXAM: 11/07/2022 COMPARISON: 11/05/2022 HISTORY: Shortness of breath TECHNIQUE: Single frontal view of the chest is obtained. FINDINGS: Bilateral infiltrate. No pleural effusion or pneumothorax. Limited inspiration cardiomegal y. Suspect underlying COPD. No pneumothorax. Arthropathy of the shoulders. IMPRESSION: 1. Stable bilateral infiltrate. 2. Suspect a background of COPD and chronic interstitial lung disease.
[2022-11-07] MEDS: TIOTROPIUM 2.5 MCG INHALER INHALATION SCH (08:48)
[2022-11-07] MEDS: SYMBICORT 160-4.5 MCG INHALER INHALATION SCH ×2 (08:48→19:20)
[2022-11-07] MEDS: ASCORBIC ACID 500 MG TAB PO SCH (08:59)
[2022-11-07] MEDS: CHOLECALCIFEROL 25 MCG (1000 IU) TABLET PO SCH (08:59)
[2022-11-07] MEDS: APIXABAN 5 MG TAB PO SCH ×2 (08:59→20:50)
[2022-11-07] MEDS: PANTOPRAZOLE 40 MG TABLET PO SCH (08:59)
[2022-11-07] MEDS: SILDENAFIL 20 MG TAB PO SCH ×3 (09:08→23:07)
[2022-11-07] MEDS: ZINC SULFATE 220 MG CAP PO SCH (09:08)
[2022-11-07] MEDS: BARICITINIB 2 MG TABLET PO SCH (09:34)
[2022-11-07] MEDS: amLODIPine 10 MG TAB PO SCH (12:17)
--- NOTE | 2022-11-07 12:19 | P.PN ---
Subjective Progress Note Date: 11/07/22 Principal diagnosis: Acute on chronic hypoxic respiratory failure and COVID-19 pneumonia This is an 82-year-old white male with history of interstitial lung disease/pulmonary fibrosis, hypertension, COPD, and the patient was recently admitted to [facility] on 10/26/2022 and he was discharged on non-ST elevation myocardial infarction and COVID-19 infection with paroxysmal atrial fibrillation patient was discharged home on few liters nasal cannula, and he was doing well until yesterday, patient developed worsening shortness of breath, cough, he had no fever, no chills, no chest pain. His cough was described as dry cough. No nausea no vomiting no abdominal pain, no diarrhea. Patient was brought into the ER, and he was noted to be hypoxic. Even on a nonrebreather mask his O2 saturation was 87%. Patient is also noted tachypnea, placed on BiPAP, 100% FiO2, and he seemed to be almost BiPAP dependent desaturated easily off BiPAP in spite of using airvo. Chest x-ray showed slight worsening of his pulmonary infiltrates and interstitial findings from previous examination. However he had a relatively normal BNP level, and his pro-calcitonin level is pending. D-dimer was elevated at 10, however the patient has been on eliquis. Questioning compliance, hence I'm recommending a CT angiogram of the chest to be done today. Patient tested again positive for COVID-19 with positive PCR, and he will be placed on the COVID-19 cocktail, may consider adding Baricitinib for this patient if his pro-calcitonin level is normal. Otherwise may consider adding antibiotics if his pro-calcitonin level is abnormal. In the meantime the patient will be placed on bronchodilators, steroids, COVID-19 cocktail, and he will be admitted to the ICU considering the patient is quite hypoxic and requiring BiPAP on the percent FiO2 On his recent admission, patient was managed by Dr. Neely, we were not consulted on this patient during his admission in spite of the fact that the patient is known to have history of interstitial lung disease, and he normally sees Dr. Diaz on a regular basis. Patient didn't require discharged on oxygen at 4 L/m. And presently now he is back to the hospital with a much worsening picture and worsening hypoxia. Reevaluated today on 11/07/2022, patient remains in the ICU, remains on BiPAP with IPAP of 12 and EPAP of 6 and FiO2 is 80%. Patient tolerated 2 hours of high flow and high FiO2 airvo yesterday. His CT angiogram of the chest showed no evidence of pulmonary embolism it did show however interstitial lung disease/pulmonary fibrosis, and groundglass opacities bilaterally. His pro- calcitonin level came back normal, hence I will go ahead and start the patient on Baricitinib. Discussed CODE STATUS with the patient, patient is DO NOT RESUSCITATE CODE STATUS as per his own wishes. WBC count today is 14 hemoglobin is 15 electrolytes are normal d-dimer was done yesterday. But again he had a negative CT angiogram of the chest pro-calcitonin is 0.07. LDH was 131. And C- reactive protein is 2.8 chest x-ray is basically the same. There is evidence of interstitial lung disease and superimposed bilateral infiltrates Objective - Vital Signs Vital signs: Vital Signs Temp 97.3 F L 11/07/22 08:00 Pulse 60 11/07/22 11:00 Resp 21 11/07/22 11:00 BP 107/66 11/07/22 11:00 Pulse Ox 90 L 11/07/22 11:42 FiO2 90 11/07/22 11:42 Intake & Output 11/06/22 11/07/22 11/07/22 18:59 06:59 18:59 Intake Total 400 1080 170 Output Total 1050 421 0 Balance -650 659 170 Weight 90.718 kg 89.4 kg Intake: Oral 400 1080 170 Output: Urine 1050 420 0 Stool 1 Other: Voiding Method Urinal Urinal Urinal # Voids 1 - Exam Physical Exam: Revealed an 82-year-old white male , on BiPAP 80% 12/6. Head: Atraumatic, normocephalic. HEENT:[Neck is supple.] [No neck masses.] [No thyromegaly.] [No JVD.] Chest: [Fine crackles at the bases no rhonchi no wheezes Cardiac Exam: [Normal S1 and S2, no S3 gallop, no murmur.] Abdomen: [Soft, nontender, no megaly, no rebound, no guarding, normal bowel sounds.] Extremities: [No clubbing, no edema, no cyanosis.] Neurological Exam: [No focal neurologic deficit.] Alert oriented 3. Psychiatric: Normal mood affect and normal mental status examination. Skin: No rashes. - Labs CBC & Chem 7: 11/07/22 05:38 11/07/22 05:38 Labs: Abnormal Lab Results - Last 24 Hours (Table) 11/07/22 11/07/22 Range/Units 05:38 05:38 WBC 14.0 H (3.8-10.6) k/uL Neutrophils # 12.7 H (1.3-7.7) k/uL Lymphocytes # 0.5 L (1.0-4.8) k/uL BUN 44 H (9-20) mg/dL Glucose 178 H (74-99) mg/dL Assessment and Plan Assessment: Impression: Acute on chronic hypoxic respiratory failure, multifactorial Worsening COVID-19 pneumonia Severe interstitial lung disease/pulmonary fibrosis diagnosed over a year ago. 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 Continue bronchodilators. Continue COVID-19 cocktail. Continue eliquis with his history of atrial fibrillation. GI prophylaxis.. Overall prognosis is poor and guarded, discussed CODE STATUS with the patient, patient wishes to be DO NOT RESUSCITATE. We will continue to follow Time with Patient: Less than 30
[2022-11-07] MEDS: SODIUM CHLORIDE 0.9% 500 ML 500 ML IV SCH (15:00)
--- NOTE | 2022-11-07 15:25 | CDI ---
Documentation Clarification Form Date: 11/07/2022 3:20:39 PM From: Sanam Grace RN, CCDS Email: [email or web address] Admit Date: 11/05/2022 8:54:00 PM Patient Name: Tonio Colon Visit Number: [id number] Discharge Date: ATTENTION: The Clinical Documentation Specialists (CDI) and [facility] Coding Staff appreciate your assistance in clarifying documentation. Please respond to the clarification below the line at the bottom and electronically sign. The CDI & [facility] Coding staff will review the response and follow-up if needed. Please note: Queries are made part of the Legal Health Record. If you have any questions, please contact the author of this message via ITS. Dr. Antoni Tapia Your 11/07 consult note indicates the patient has abnormal troponins, type 2 mechanism related to hypoxia. Please clarify if there is an additional diagnosis. Patient history/risk factors: HTN, COPD, hyperlipidemia. Recently discharged for NSTEMI, Covid infection. Patient presents because of worsening dyspnea. He was on home oxygen. Clinical indicators: 11/05 Troponins: 0.060-0.059-0.061 H&P: "on presentation patient is hypoxic saturating 87% on NRB mask. Placed on bipap. Acute on chronic hypoxic respiratory failure. Elevated troponin most likely secondary to hypoxia and Covid infection. We will consult cardiology team." 11/07 Cardiology: "Abnormal troponins, type 2 mechanism related to hypoxia." Treatment: oxygen supplementation via bipap, NRB mask and high flow cannula. Covid cocktail. Bronchodilators. IV Solumedrol 60mg IV Q6H Is there an additional diagnosis related to the above: [ X ] Type 2 WA due to acute hypoxic respiratory failure [ ] Other, please specify [ ] Unable to determine MTDD
[2022-11-07] MEDS: INSULIN ASPART (NovoLOG) 100 UNIT/ML VIAL SQ SCH ×2 (18:30→20:50)
[2022-11-07] MEDS: ATORVASTATIN 10 MG TAB PO SCH (20:50)
[2022-11-07] MEDS: guaiFENesin-DM 600/30MG 1 EACH TAB.ER.12H PO SCH (20:50)
[2022-11-07] MEDS: LATANOPROST 0.005% OPHTH DROPS 2.5 ML BTL LEFT EYE SCH (20:51)
[2022-11-08] MEDS: methylPREDNISolone SOD SUCCI 125 MG/2 ML VIAL IV SCH ×4 (02:35→21:16)
[2022-11-08] MEDS: ALBUTEROL HFA INHALER INHALATION SCH ×5 (03:04→20:22)
[2022-11-08 04:44] LABS: Basophils % (A) 0 %; Eosinophils % (A) 0 %; HCT 41.3 % (39.0-53.0); HGB 13.8 gm/dL (13.0-17.5); Lymphocytes # (A) 0.6 k/uL (1.0-4.8); Lymphocytes % (A) 4 %; MCH 32.9 pg (25.0-35.0); MCHC 33.5 g/dL (31.0-37.0); MCV 98.2 fL (80.0-100.0); Mean Platelet Volume 8.1; Monocytes # (A) 0.5 k/uL (0-1.0); Monocytes % (A) 3 %; Neutrophils # (A) 12.5 k/uL (1.3-7.7); Neutrophils % (A) 90 %; Platelet Count 326 k/uL (150-450); RBC 4.21 m/uL (4.30-5.90); RDW 12.3 % (11.5-15.5); WBC 13.8 k/uL (3.8-10.6)
[2022-11-08 04:54] LABS: Albumin 3.1 g/dL (3.5-5.0); Calcium 8.5 mg/dL (8.4-10.2); Potassium 4.5 mmol/L (3.5-5.1); Total Bilirubin 0.9 mg/dL (0.2-1.3); Total Protein 5.9 g/dL (6.3-8.2)
[2022-11-08] MEDS: INSULIN ASPART (NovoLOG) 100 UNIT/ML VIAL SQ SCH ×5 (06:49→21:16)
--- NOTE | 2022-11-08 07:39 | XR ---
EXAMINATION TYPE: XR chest 1V DATE OF EXAM: 11/08/2022 COMPARISON: 11/07/2022 HISTORY: 82-year-old male shortness of breath TECHNIQUE: Single frontal view of the chest is obtained. FINDINGS: Low lung volumes. Patchy reticular opacities in the lower lungs persists but may have slig ht improvement. Heart is mildly enlarged. Relative upper lung lucencies may reflect concurrent emphys rafael. IMPRESSION: Suspect ongoing acute infiltrates superimposed on chronic interstitial lung disease. Aeration at the lower lungs may be minimally improved.
[2022-11-08] MEDS: SYMBICORT 160-4.5 MCG INHALER INHALATION SCH ×2 (08:31→20:22)
[2022-11-08] MEDS: TIOTROPIUM 2.5 MCG INHALER INHALATION SCH (08:31)
[2022-11-08] MEDS: ZINC SULFATE 220 MG CAP PO SCH (11:04)
[2022-11-08] MEDS: APIXABAN 5 MG TAB PO SCH ×2 (11:04→21:15)
[2022-11-08] MEDS: PANTOPRAZOLE 40 MG TABLET PO SCH (11:04)
[2022-11-08] MEDS: SILDENAFIL 20 MG TAB PO SCH ×3 (11:04→21:16)
[2022-11-08] MEDS: ASCORBIC ACID 500 MG TAB PO SCH (11:04)
[2022-11-08] MEDS: METOPROLOL TARTRATE 25 MG TAB PO SCH (11:05)
[2022-11-08] MEDS: BARICITINIB 2 MG TABLET PO SCH (11:05)
[2022-11-08] MEDS: CHOLECALCIFEROL 25 MCG (1000 IU) TABLET PO SCH (11:05)
[2022-11-08] MEDS: amLODIPine 10 MG TAB PO SCH (11:05)
[2022-11-08] MEDS: SODIUM CHLORIDE 0.9% 500 ML 500 ML IV SCH (11:11)
--- NOTE | 2022-11-08 12:16 | P.PN ---
Subjective Progress Note Date: 11/08/22 Principal diagnosis: Acute on chronic hypoxic respiratory failure and COVID-19 pneumonia This is an 82-year-old white male with history of interstitial lung disease/pulmonary fibrosis, hypertension, COPD, and the patient was recently admitted to [facility] on 10/26/2022 and he was discharged on non-ST elevation myocardial infarction and COVID-19 infection with paroxysmal atrial fibrillation patient was discharged home on few liters nasal cannula, and he was doing well until yesterday, patient developed worsening shortness of breath, cough, he had no fever, no chills, no chest pain. His cough was described as dry cough. No nausea no vomiting no abdominal pain, no diarrhea. Patient was brought into the ER, and he was noted to be hypoxic. Even on a nonrebreather mask his O2 saturation was 87%. Patient is also noted tachypnea, placed on BiPAP, 100% FiO2, and he seemed to be almost BiPAP dependent desaturated easily off BiPAP in spite of using airvo. Chest x-ray showed slight worsening of his pulmonary infiltrates and interstitial findings from previous examination. However he had a relatively normal BNP level, and his pro-calcitonin level is pending. D-dimer was elevated at 10, however the patient has been on eliquis. Questioning compliance, hence I'm recommending a CT angiogram of the chest to be done today. Patient tested again positive for COVID-19 with positive PCR, and he will be placed on the COVID-19 cocktail, may consider adding Baricitinib for this patient if his pro-calcitonin level is normal. Otherwise may consider adding antibiotics if his pro-calcitonin level is abnormal. In the meantime the patient will be placed on bronchodilators, steroids, COVID-19 cocktail, and he will be admitted to the ICU considering the patient is quite hypoxic and requiring BiPAP on the percent FiO2 On his recent admission, patient was managed by Dr. Neley, we were not consulted on this patient during his admission in spite of the fact that the patient is known to have history of interstitial lung disease, and he normally sees Dr. Diaz on a regular basis. Patient didn't require discharged on oxygen at 4 L/m. And presently now he is back to the hospital with a much worsening picture and worsening hypoxia. Reevaluated today on 11/07/2022, patient remains in the ICU, remains on BiPAP with IPAP of 12 and EPAP of 6 and FiO2 is 80%. Patient tolerated 2 hours of high flow and high FiO2 airvo yesterday. His CT angiogram of the chest showed no evidence of pulmonary embolism it did show however interstitial lung disease/pulmonary fibrosis, and groundglass opacities bilaterally. His pro- calcitonin level came back normal, hence I will go ahead and start the patient on Baricitinib. Discussed CODE STATUS with the patient, patient is DO NOT RESUSCITATE CODE STATUS as per his own wishes. WBC count today is 14 hemoglobin is 15 electrolytes are normal d-dimer was done yesterday. But again he had a negative CT angiogram of the chest pro-calcitonin is 0.07. LDH was 131. And C- reactive protein is 2.8 chest x-ray is basically the same. There is evidence of interstitial lung disease and superimposed bilateral infiltrates Reevaluated today on 11/08/2022, patient remains in the ICU, he is now on airvo at 60 L flow and 90% FiO2 O2 saturation is in the mid 90s. Slight improvement, continues to have shortness of breath with any activity. And the patient desaturate easily. Patient has severe interstitial lung disease and superimposed COVID-19 pneumonia. And he has history of chronic hypoxic or for failure to begin with. At any rate slight improvement clinically and I plan to transfer the patient out of the ICU to a regular medical floor. WBC count is 15.8 hemoglobin is 13.8 BUN is 54 creatinine 1.14, chest x-ray is basically the same, consistent with interstitial lung disease and superimposed acute infiltrate related to COVID-19 pneumonia Objective - Vital Signs Vital signs: Vital Signs Temp 97.7 F 11/08/22 08:00 Pulse 67 11/08/22 08:00 Resp 22 11/08/22 08:00 BP 121/68 11/08/22 08:00 Pulse Ox 96 11/08/22 08:00 FiO2 70 11/08/22 11:40 Intake & Output 11/07/22 11/08/22 11/08/22 18:59 06:59 18:59 Intake Total 750 240 260 Output Total 425 425 200 Balance 325 -185 60 Weight 91.6 kg Intake: IV 80 240 20 Sodium Chloride 0.9% 500 80 240 20 ml 500 ml @ 20 mls/hr IV .Q24H COUNT INCLUDES THE [facility] Rx#:[id number] Oral 670 240 Output: Urine 425 425 200 Other: Voiding Method Urinal Urinal # Voids 0 - Exam Physical Exam: Revealed an 82-year-old white male , on airvo at 90% FiO2 and 60 L flow Head: Atraumatic, normocephalic. HEENT:[Neck is supple.] [No neck masses.] [No thyromegaly.] [No JVD.] Chest: [Fine crackles at the bases no rhonchi no wheezes Cardiac Exam: [Normal S1 and S2, no S3 gallop, no murmur.] Abdomen: [Soft, nontender, no megaly, no rebound, no guarding, normal bowel sounds.] Extremities: [No clubbing, no edema, no cyanosis.] Neurological Exam: [No focal neurologic deficit.] Alert oriented 3. Psychiatric: Normal mood affect and normal mental status examination. Skin: No rashes. - Labs CBC & Chem 7: 11/08/22 03:52 11/08/22 03:52 Labs: Abnormal Lab Results - Last 24 Hours (Table) 11/08/22 11/08/22 Range/Units 03:52 03:52 WBC 13.8 H (3.8-10.6) k/uL RBC 4.21 L (4.30-5.90) m/uL Neutrophils # 12.5 H (1.3-7.7) k/uL Lymphocytes # 0.6 L (1.0-4.8) k/uL Sodium 133 L (137-145) mmol/L BUN 54 H (9-20) mg/dL Glucose 171 H (74-99) mg/dL ALT 56 H (4-49) U/L Total Protein 5.9 L (6.3-8.2) g/dL Albumin 3.1 L (3.5-5.0) g/dL Assessment and Plan Assessment: Impression: Acute on chronic hypoxic respiratory failure, multifactorial Worsening COVID-19 pneumonia Severe interstitial lung disease/pulmonary fibrosis diagnosed over a year ago. Based on the CT of the chest, there appears seems to be consistent with IPF/UIP. Elevated inflammatory markers consistent with COVID-19 infection Chronic atrial fibrillation, on eliquis Benign essential hypertension Dyslipidemia Peripheral neuropathy Recommendation: Continue oxygen via airvo, titrate accordingly. Transfer patient to regular medical floor Continue Baricitinib Continue steroids/Solu-Medrol. Continue bronchodilators. Continue COVID-19 cocktail. Continue eliquis GI prophylaxis.. DO NOT RESUSCITATE CODE STATUS We will continue to follow Time with Patient: Less than 30
--- NOTE | 2022-11-08 14:47 | P.PN ---
Subjective HISTORY OF PRESENT ILLNESS: This is a 82-year-old male with a past medical history significant for hypertension, hyperlipidemia, neuropathy, recent COVID, pulmonary fibrosis and former nicotine dependence. 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 Patient was seen prior admission 2 weeks ago for abnormal troponins and weakness. He had a cough and fevers and was found to have mildly elevated troponins. He was discharged home however had continued shortness breath and therefore presented back to the emergency department. He denies any chest pain or pressure. Denies any lightheadedness. He was found to be hypoxic and placed on BiPAP with improvement in oxygen saturations up to the mid 90s. Chest CTA was performed which showed no PE with low lung volumes and moderate to severe parenchymal fibrotic changes with progression from March 2021. White blood cell 11.6, hemoglobin 15.2, potassium 3.3, creatinine 0.6, troponin 0.06, proBNP 636, albumin 2.1. Previous echo showing EF 50-55% with enlarged right ventricle and elevated RVSP of 53. 11/08 Patient seen and examined. Patient admits to continued shortness breath relati vely unchanged. His metoprolol has been held twice secondary to hypotension as well as bradycardia. He does have asymptomatic mild bradycardia with heart rates in the 50s. PHYSICAL EXAM: VITAL SIGNS: Reviewed. GENERAL: Well-developed in no acute distress. HEENT: Head is normocephalic. Pupils are equal, round. Sclerae anicteric. Mucous membranes of the mouth are moist. Neck supple. No JVD or thyromegaly LUNGS: Respirations even and unlabored. Bilateral dry crackles. HEART: Regular rate and rhythm. S1 and S2 heard. ABDOMEN: Soft. Nondistended. Nontender. EXTREMITIES: Normal range of motion. No clubbing or cyanosis. Peripheral pulses intact. No lower extremity edema NEUROLOGIC: Awake and alert. Oriented x 3. ASSESSMENT: Acute on chronic hypoxic respiratory failure related to pulmonary fibrosis and recent COVID-19 infection Pulmonary hypertension likely group 3 related to hypoxia Right ventricular dilation noted on echo Non-STEMI, type 2 mechanism related to hypoxia Hypertension Hyperlipidemia Neuropathy Former nicotine dependence Paroxysmal Afib, on anticoagulation, currently sinus rhythm PLAN: Continue with Revatio for pulmonary hypertension. Continue with medical therapy for NSTEMI. Decrease metoprolol to 12.5 mg twice a day given mildly asymptomatic bradycardia and borderline blood pressures. Continue supportive care. No further recommendations from a cardiology standpoint. Please call with any questions. Objective - Vital Signs Vital signs: Vital Signs Temp 97.9 F 11/08/22 12:00 Pulse 71 11/08/22 12:00 Resp 22 11/08/22 13:58 BP 94/57 11/08/22 13:00 Pulse Ox 94 L 11/08/22 13:00 FiO2 67 11/08/22 13:37 Intake & Output 11/07/22 11/08/22 11/08/22 18:59 06:59 18:59 Intake Total 172 822 2578 Output Total 425 425 400 Balance 325 -185 1020 Weight 91.6 kg Intake: IV 80 240 100 Sodium Chloride 0.9% 500 80 240 100 ml 500 ml @ 20 mls/hr IV .Q24H [facility] Rx#:[id number] Oral 670 1320 Output: Urine 425 425 400 Stool 0 Other: Voiding Method Urinal Urinal Urinal # Voids 0 - Labs CBC & Chem 7: 11/08/22 03:52 11/08/22 03:52 Labs: Abnormal Lab Results - Last 24 Hours (Table) 11/08/22 11/08/22 Range/Units 03:52 03:52 WBC 13.8 H (3.8-10.6) k/uL RBC 4.21 L (4.30-5.90) m/uL Neutrophils # 12.5 H (1.3-7.7) k/uL Lymphocytes # 0.6 L (1.0-4.8) k/uL Sodium 133 L (137-145) mmol/L BUN 54 H (9-20) mg/dL Glucose 171 H (74-99) mg/dL ALT 56 H (4-49) U/L Total Protein 5.9 L (6.3-8.2) g/dL Albumin 3.1 L (3.5-5.0) g/dL
[2022-11-08 16:41] LABS: Glucose,Whole Blood 212 mg/dL (70-110)
--- NOTE | 2022-11-08 18:29 | P.PN ---
Subjective Progress Note Date: 11/07/22 82 years old male with past medical history of hypertension, hyperlipidemia, COPD Patient was recently discharged from this facility 10/26-10/31 for non-STEMI, coated infection and paroxysmal atrial fibrillation Patient currently sitting up in bed, fully awake and oriented, mildly tachypneic, no significant respiratory distress, he can talk freely with no much use of accessory respiratory muscles. Patient presents because of worsening dyspnea. He was on home oxygen but he could not tell how many liters. He denies chest pain. He has kind of dry coughing. No diarrhea abdominal pain or vomiting, no urinary complaints, no headache weakness or numbness. He denies smoking alcohol or illicit drugs He is requiring BiPAP therapy this morning, On the presentation shift patient is hypoxic saturating 87% on nonrebreather and she was placed on BiPAP and saturation improved to high 90s. Patient is tachypneic, 22-25 breaths per minute That showed mild leukocytosis of 11.6. Rest of CBC, INR is unremarkable. Creatinine normal 0.6. Potassium 3.3. Carbon dioxide 20. Lactic acid elevated 2.7 Evidence with hypocalcemia at 5.9. Elevated troponin 0.06 and 0.05, compared to normal troponin upon discharge last time and about 10 days ago at 0.037 and 0.034 Coronavirus detected while the flow was a and V are negative EKG showed normal sinus rhythm at [address]-T changes Chest x-ray: Pulmonary infiltrate is increased compared to last exam and consistent with worsening pneumonia Mildly elevated troponin most likely secondary to Covid infection and/or CHF In the emergency room patient received breathing treatment and Solu-Medrol Objective - Vital Signs Vital signs: Vital Signs Temp 97.3 F L 11/07/22 08:00 Pulse 60 11/07/22 11:00 Resp 21 11/07/22 11:00 BP 107/66 11/07/22 11:00 Pulse Ox 90 L 11/07/22 11:42 FiO2 90 11/07/22 11:42 Intake & Output 11/06/22 11/07/22 11/07/22 18:59 06:59 18:59 Intake Total 400 1080 170 Output Total 1050 421 0 Balance -650 659 170 Weight 90.718 kg 89.4 kg Intake: Oral 400 1080 170 Output: Urine 1050 420 0 Stool 1 Other: Voiding Method Urinal Urinal # Voids 1 - Exam GENERAL: The patient is alert and oriented x3, not in any acute distress. Well developed, well nourished. HEENT: Pupils are round and equally reacting to light. EOMI. No scleral icterus. No conjunctival pallor. Normocephalic, atraumatic. No pharyngeal erythema. No thyromegaly. CARDIOVASCULAR: S1 and S2 present. No murmurs, rubs, or gallops. -PULMONARY: Chest is clear to auscultation, no wheezing. Bilateral crepitation and decreased breath sounds especially on the basis. Mildly tachypneic ABDOMEN: Soft, nontender, nondistended, normoactive bowel sounds. No palpable organomegaly. MUSCULOSKELETAL: No joint swelling or deformity. EXTREMITIES: No cyanosis, clubbing, or pedal edema. NEUROLOGICAL: Gross neurological examination did not reveal any focal deficits. SKIN: No rashes. no petechiae. - Labs CBC & Chem 7: 11/08/22 03:52 11/08/22 03:52 Labs: Abnormal Lab Results - Last 24 Hours (Table) 11/07/22 11/07/22 Range/Units 05:38 05:38 WBC 14.0 H (3.8-10.6) k/uL Neutrophils # 12.7 H (1.3-7.7) k/uL Lymphocytes # 0.5 L (1.0-4.8) k/uL BUN 44 H (9-20) mg/dL Glucose 178 H (74-99) mg/dL Assessment and Plan Assessment: Acute on chronic hypoxic respiratory failure Bilateral pulmonary infiltrates suspicious bilateral covid pneumonia, rule out bacterial infection as well, CHF felt less likely Hypertension Hyperlipidemia Paroxysmal atrial fibrillation on liquids History of obstructive sleep apnea Recent history of cough with Peripheral neuropathy Continue with oxygen and BiPAP as needed Starcontinue with steroids, currently is on some drop 40 mg Pulmonary consult follow-up inflammatory markers and procalcitonin elevated troponin most likely secondary to hypoxia and covid infection , we will consult cardiology team in view of recent non stemi and stent placement Monitor calcium level Labs and medication were reviewed.. Continue same treatment. Continue with symptomatic treatment. Resume home medication. Monitor labs and vitals. DVT and GI prophylaxis. Further recommendations as per clinical course of the patie nt DVT prophylaxis:Eliquis GI Prophylaxis: Ppi
--- NOTE | 2022-11-08 18:31 | P.PN ---
Subjective Progress Note Date: 11/08/22 82 years old male with past medical history of hypertension, hyperlipidemia, COPD Patient was recently discharged from this facility 10/26-10/31 for non-STEMI, coated infection and paroxysmal atrial fibrillation Patient currently sitting up in bed, fully awake and oriented, mildly tachypneic, no significant respiratory distress, he can talk freely with no much use of accessory respiratory muscles. Patient presents because of worsening dyspnea. He was on home oxygen but he could not tell how many liters. He denies chest pain. He has kind of dry coughing. No diarrhea abdominal pain or vomiting, no urinary complaints, no headache weakness or numbness. He denies smoking alcohol or illicit drugs He is requiring BiPAP therapy this morning, On the presentation shift patient is hypoxic saturating 87% on nonrebreather and she was placed on BiPAP and saturation improved to high 90s. Patient is tachypneic, 22-25 breaths per minute That showed mild leukocytosis of 11.6. Rest of CBC, INR is unremarkable. Creatinine normal 0.6. Potassium 3.3. Carbon dioxide 20. Lactic acid elevated 2.7 Evidence with hypocalcemia at 5.9. Elevated troponin 0.06 and 0.05, compared to normal troponin upon discharge last time and about 10 days ago at 0.037 and 0.034 Coronavirus detected while the flow was a and V are negative EKG showed normal sinus rhythm at [address]-T changes Chest x-ray: Pulmonary infiltrate is increased compared to last exam and consistent with worsening pneumonia Mildly elevated troponin most likely secondary to Covid infection and/or CHF In the emergency room patient received breathing treatment and Solu-Medrol 11/08/2022 -- patient is seen and evaluated in the ICU, he is now on airvo at 60 L flow and 90% FiO2 O2 saturation is in the mid 90s. Slight improvement, continues to have shortness of breath with any activity. And the patient desaturate easily. Patient has severe interstitial lung disease and superimposed COVID-19 pneumonia . And he has history of chronic hypoxic or for failure to begin with. At any rate slight improvement clinically and I plan to transfer the patient out of the ICU to a regular medical floor. WBC count is 15.8 hemoglobin is 13.8 BUN is 54 creatinine 1.14, chest x-ray is basically the same, consistent with interstitial lung disease and superimposed acute infiltrate related to COVID-19 pneumonia Continue oxygen via airvo, titrate accordingly; Continue Baricitinib Continue steroids/Solu-Medrol; bronchodilators. Continue COVID-19 cocktail. Continue eliquis Objective - Vital Signs Vital signs: Vital Signs Temp 97.6 F 11/08/22 04:00 Pulse 52 L 11/08/22 06:00 Resp 27 H 11/08/22 06:00 BP 129/66 11/08/22 06:00 Pulse Ox 90 L 11/08/22 06:00 FiO2 90 11/08/22 07:51 Intake & Output 11/07/22 11/08/22 11/08/22 18:59 06:59 18:59 Intake Total 750 240 20 Output Total 425 425 200 Balance 325 -185 -180 Weight 91.6 kg Intake: IV 80 240 20 Sodium Chloride 0.9% 500 80 240 20 ml 500 ml @ 20 mls/hr IV .Q24H [facility] Rx#:[id number] Oral 670 Output: Urine 425 425 200 Other: Voiding Method Urinal Urinal # Voids 0 - Exam GENERAL: The patient is alert and oriented x3, not in any acute distress. Well developed, well nourished. HEENT: Pupils are round and equally reacting to light. EOMI. No scleral icterus. No conjunctival pallor. Normocephalic, atraumatic. No pharyngeal erythema. No thyromegaly. CARDIOVASCULAR: S1 and S2 present. No murmurs, rubs, or gallops. -PULMONARY: Chest is clear to auscultation, no wheezing. Bilateral crepitation and decreased breath sounds especially on the basis. Mildly tachypneic ABDOMEN: Soft, nontender, nondistended, normoactive bowel sounds. No palpable organomegaly. MUSCULOSKELETAL: No joint swelling or deformity. EXTREMITIES: No cyanosis, clubbing, or pedal edema. NEUROLOGICAL: Gross neurological examination did not reveal any focal deficits. SKIN: No rashes. no petechiae. - Labs CBC & Chem 7: 11/08/22 03:52 11/08/22 03:52 Labs: Abnormal Lab Results - Last 24 Hours (Table) 11/08/22 11/08/22 Range/Units 03:52 03:52 WBC 13.8 H (3.8-10.6) k/uL RBC 4.21 L (4.30-5.90) m/uL Neutrophils # 12.5 H (1.3-7.7) k/uL Lymphocytes # 0.6 L (1.0-4.8) k/uL Sodium 133 L (137-145) mmol/L BUN 54 H (9-20) mg/dL Glucose 171 H (74-99) mg/dL ALT 56 H (4-49) U/L Total Protein 5.9 L (6.3-8.2) g/dL Albumin 3.1 L (3.5-5.0) g/dL Assessment and Plan Assessment: Acute on chronic hypoxic respiratory failure Bilateral pulmonary infiltrates suspicious bilateral covid pneumonia, rule out bacterial infection as well, CHF felt less likely Hypertension Hyperlipidemia Paroxysmal atrial fibrillation on liquids History of obstructive sleep apnea Recent history of cough with Peripheral neuropathy Continue with oxygen and BiPAP as needed Starcontinue with steroids, currently is on some drop 40 mg Pulmonary consult follow-up inflammatory markers and procalcitonin elevated troponin most likely secondary to hypoxia and covid infection , we will consult cardiology team in view of recent non stemi and stent placement Monitor calcium level Labs and medication were reviewed.. Continue same treatment. Continue with symptomatic treatment. Resume home medication. Monitor labs and vitals. DVT and GI prophylaxis. Further recommendations as per clinical course of the patient DVT prophylaxis:Eliquis GI Prophylaxis: Ppi
[2022-11-08 20:03] LABS: Glucose,Whole Blood 301 mg/dL (70-110)
[2022-11-08] MEDS: guaiFENesin-DM 600/30MG 1 EACH TAB.ER.12H PO SCH (21:15)
[2022-11-08] MEDS: METOPROLOL TARTRATE 12.5 MG TAB PO SCH (21:16)
[2022-11-08] MEDS: ATORVASTATIN 10 MG TAB PO SCH (21:16)
[2022-11-08] MEDS: LATANOPROST 0.005% OPHTH DROPS 2.5 ML BTL LEFT EYE SCH (23:01)
[2022-11-09] MEDS: methylPREDNISolone SOD SUCCI 125 MG/2 ML VIAL IV SCH ×4 (03:25→20:23)
[2022-11-09 06:12] LABS: Glucose,Whole Blood 170 mg/dL (70-110)
[2022-11-09] MEDS: INSULIN ASPART (NovoLOG) 100 UNIT/ML VIAL SQ SCH ×4 (06:19→20:00)
[2022-11-09] MEDS: TIOTROPIUM 2.5 MCG INHALER INHALATION SCH (07:24)
[2022-11-09] MEDS: ALBUTEROL HFA INHALER INHALATION SCH ×4 (07:24→21:52)
[2022-11-09] MEDS: SYMBICORT 160-4.5 MCG INHALER INHALATION SCH ×2 (07:25→21:52)
[2022-11-09 08:27] LABS: Calcium 8.4 mg/dL (8.4-10.2); Potassium 4.9 mmol/L (3.5-5.1); Total Bilirubin 0.9 mg/dL (0.2-1.3); Total Protein 5.7 g/dL (6.3-8.2)
[2022-11-09] MEDS: amLODIPine 10 MG TAB PO SCH (08:37)
[2022-11-09] MEDS: CHOLECALCIFEROL 25 MCG (1000 IU) TABLET PO SCH (08:37)
[2022-11-09] MEDS: BARICITINIB 2 MG TABLET PO SCH (08:37)
[2022-11-09] MEDS: SILDENAFIL 20 MG TAB PO SCH ×3 (08:37→20:00)
[2022-11-09] MEDS: APIXABAN 5 MG TAB PO SCH ×2 (08:38→19:59)
[2022-11-09] MEDS: METOPROLOL TARTRATE 12.5 MG TAB PO SCH ×2 (08:38→19:59)
[2022-11-09] MEDS: ZINC SULFATE 220 MG CAP PO SCH (08:38)
[2022-11-09] MEDS: ASCORBIC ACID 500 MG TAB PO SCH (08:38)
[2022-11-09] MEDS: PANTOPRAZOLE 40 MG TABLET PO SCH (08:38)
[2022-11-09] MEDS: SODIUM CHLORIDE 0.9% 500 ML 500 ML IV SCH (08:39)
[2022-11-09 08:59] LABS: HCT 40.8 % (39.0-53.0); HGB 14.1 gm/dL (13.0-17.5); MCH 33.3 pg (25.0-35.0); MCHC 34.5 g/dL (31.0-37.0); MCV 96.4 fL (80.0-100.0); Mean Platelet Volume 9.3; Platelet Count 294 k/uL (150-450); RBC 4.24 m/uL (4.30-5.90); RDW 12.6 % (11.5-15.5); WBC 11.3 k/uL (3.8-10.6)
[2022-11-09 11:02] LABS: Band Neutrophils % 1 %; Lymphocytes # (M) 0.11 k/uL (1.0-4.8); Metamyelocytes # (M) 0.11 k/uL (0); Metamyelocytes % 1 %; Monocytes # (M) 0.45 k/uL (0-1.0); Neutrophils % (M) 94 %; Nucleated Red Blood Cells 0 /100 WBC (0-0); RBC Morphology Normal; Total Cells Counted 200
[2022-11-09 11:31] LABS: Glucose,Whole Blood 242 mg/dL (70-110)
--- NOTE | 2022-11-09 13:55 | P.PN ---
Subjective Progress Note Date: 11/09/22 Principal diagnosis: Acute on chronic hypoxic respiratory failure and COVID-19 pneumonia This is an 82-year-old white male with history of interstitial lung disease/pulmonary fibrosis, hypertension, COPD, and the patient was recently admitted to [facility] on 10/26/2022 and he was discharged on non-ST elevation myocardial infarction and COVID-19 infection with paroxysmal atrial fibrillation patient was discharged home on few liters nasal cannula, and he was doing well until yesterday, patient developed worsening shortness of breath, cough, he had no fever, no chills, no chest pain. His cough was described as dry cough. No nausea no vomiting no abdominal pain, no diarrhea. Patient was brought into the ER, and he was noted to be hypoxic. Even on a nonrebreather mask his O2 saturation was 87%. Patient is also noted tachypnea, placed on BiPAP, 100% FiO2, and he seemed to be almost BiPAP dependent desaturated easily off BiPAP in spite of using airvo. Chest x-ray showed slight worsening of his pulmonary infiltrates and interstitial findings from previous examination. However he had a relatively normal BNP level, and his pro-calcitonin level is pending. D-dimer was elevated at 10, however the patient has been on eliquis. Questioning compliance, hence I'm recommending a CT angiogram of the chest to be done today. Patient tested again positive for COVID-19 with positive PCR, and he will be placed on the COVID-19 cocktail, may consider adding Baricitinib for this patient if his pro-calcitonin level is normal. Otherwise may consider adding antibiotics if his pro-calcitonin level is abnormal. In the meantime the patient will be placed on bronchodilators, steroids, COVID-19 cocktail, and he will be admitted to the ICU considering the patient is quite hypoxic and requiring BiPAP on the percent FiO2 On his recent admission, patient was managed by Dr. Neely, we were not consulted on this patient during his admission in spite of the fact that the patient is known to have history of interstitial lung disease, and he normally sees Dr. Diaz on a regular basis. Patient didn't require discharged on oxygen at 4 L/m. And presently now he is back to the hospital with a much worsening picture and worsening hypoxia. Reevaluated today on 11/07/2022, patient remains in the ICU, remains on BiPAP with IPAP of 12 and EPAP of 6 and FiO2 is 80%. Patient tolerated 2 hours of high flow and high FiO2 airvo yesterday. His CT angiogram of the chest showed no evidence of pulmonary embolism it did show however interstitial lung disease/pulmonary fibrosis, and groundglass opacities bilaterally. His pro- calcitonin level came back normal, hence I will go ahead and start the patient on Baricitinib. Discussed CODE STATUS with the patient, patient is DO NOT RESUSCITATE CODE STATUS as per his own wishes. WBC count today is 14 hemoglobin is 15 electrolytes are normal d-dimer was done yesterday. But again he had a negative CT angiogram of the chest pro-calcitonin is 0.07. LDH was 131. And C- reactive protein is 2.8 chest x-ray is basically the same. There is evidence of interstitial lung disease and superimposed bilateral infiltrates Reevaluated today on 11/08/2022, patient remains in the ICU, he is now on airvo at 60 L flow and 90% FiO2 O2 saturation is in the mid 90s. Slight improvement, continues to have shortness of breath with any activity. And the patient desaturate easily. Patient has severe interstitial lung disease and superimposed COVID-19 pneumonia. And he has history of chronic hypoxic or for failure to begin with. At any rate slight improvement clinically and I plan to transfer the patient out of the ICU to a regular medical floor. WBC count is 15.8 hemoglobin is 13.8 BUN is 54 creatinine 1.14, chest x-ray is basically the same, consistent with interstitial lung disease and superimposed acute infiltrate related to COVID-19 pneumonia Reevaluated today on 11/09/2022, patient is basically about the same, remains on relatively high FiO2 and high flow via airvo he is on a regular medical floor today. Patient is on 70% FiO2 and 55 L flow, O2 sats is 92%. Patient is complaining of some shortness of breath, occasional cough, daughter is at bedside, and updated on his condition. Basic metabolic profile is normal BUN is 54 creatinine 1.23, CBC is relatively normal. Discussed his Baricitinib with pharmacist today, and preferred to hold Baricitinib for now since his lymphocyte count is dropping added 0.11, cut off is 0.2. Objective - Vital Signs Vital signs: Vital Signs Temp 97.5 F L 11/09/22 11:49 Pulse 59 L 11/09/22 11:49 Resp 22 11/09/22 11:49 BP 119/66 11/09/22 11:49 Pulse Ox 92 L 11/09/22 11:49 FiO2 68 11/09/22 11:49 Intake & Output 11/08/22 11/09/22 11/09/22 18:59 06:59 18:59 Intake Total 1660 246 Output Total 400 525 0 Balance 1260 -525 246 Intake: IV 100 10 Invasive Line 1 5 Invasive Line 2 5 Sodium Chloride 0.9% 500 100 ml 500 ml @ 20 mls/hr IV .Q24H [facility] Rx#:[id number] Oral 1560 236 Output: Urine 400 525 Stool 0 0 Other: Voiding Method Urinal Urinal Urinal # Voids 2 1 # Bowel Movements 0 1 - Exam Physical Exam: Revealed an 82-year-old white male , on airvo at 700% FiO2 and 55 L flow Head: Atraumatic, normocephalic. HEENT:[Neck is supple.] [No neck masses.] [No thyromegaly.] [No JVD.] Chest: [Fine crackles at the bases no rhonchi no wheezes Cardiac Exam: [Normal S1 and S2, no S3 gallop, no murmur.] Abdomen: [Soft, nontender, no megaly, no rebound, no guarding, normal bowel sounds.] Extremities: [No clubbing, no edema, no cyanosis.] Neurological Exam: [No focal neurologic deficit.] Alert oriented 3. Psychiatric: Normal mood affect and normal mental status examination. Skin: No rashes. - Labs CBC & Chem 7: 11/09/22 06:18 11/09/22 06:18 Labs: Abnormal Lab Results - Last 24 Hours (Table) 11/08/22 11/08/22 11/09/22 Range/Units 16:39 20:01 06:11 WBC (3.8-10.6) k/uL RBC (4.30-5.90) m/uL Neutrophils # (Manual) (1.3-7.7) k/uL Lymphocytes # (Manual) (1.0-4.8) k/uL Metamyelocytes # (Man) (0) k/uL Sodium (137-145) mmol/L BUN (9-20) mg/dL Glucose (74-99) mg/dL POC Glucose (mg/dL) 212 H 301 H 170 H (70-110) mg/dL ALT (4-49) U/L Total Protein (6.3-8.2) g/dL Albumin (3.5-5.0) g/dL 11/09/22 11/09/22 11/09/22 Range/Units 06:18 06:18 11:29 WBC 11.3 H (3.8-10.6) k/uL RBC 4.24 L (4.30-5.90) m/uL Neutrophils # (Manual) 10.70 H (1.3-7.7) k/uL Lymphocytes # (Manual) 0.11 L (1.0-4.8) k/uL Metamyelocytes # (Man) 0.11 H (0) k/uL Sodium 136 L (137-145) mmol/L BUN 54 H (9-20) mg/dL Glucose 158 H (74-99) mg/dL POC Glucose (mg/dL) 242 H (70-110) mg/dL ALT 70 H (4-49) U/L Total Protein 5.7 L (6.3-8.2) g/dL Albumin 3.0 L (3.5-5.0) g/dL Assessment and Plan Assessment: Impression: Acute on chronic hypoxic respiratory failure, multifactorial Worsening COVID-19 pneumonia Severe interstitial lung disease/pulmonary fibrosis diagnosed over a year ago. Based on the CT of the chest, there appears seems to be consistent with IPF/UIP. Elevated inflammatory markers consistent with COVID-19 infection Chronic atrial fibrillation, on eliquis Benign essential hypertension Dyslipidemia Peripheral neuropathy Recommendation: Continue oxygen via airvo, titrate accordingly. Hold Baricitinib mostly because of the significant drop lymphocytes, may restart if improves in the next 24 hours. Continue steroids/Solu-Medrol. Continue bronchodilators. Continue COVID-19 cocktail. Continue eliquis GI prophylaxis.. Updated the daughter at bedside on his condition. DO NOT RESUSCITATE CODE STATUS We will continue to follow Time with Patient: Less than 30
[2022-11-09 16:26] LABS: Glucose,Whole Blood 184 mg/dL (70-110)
[2022-11-09 19:41] LABS: Glucose,Whole Blood 269 mg/dL (70-110)
[2022-11-09] MEDS: ATORVASTATIN 10 MG TAB PO SCH (19:59)
[2022-11-09] MEDS: guaiFENesin-DM 600/30MG 1 EACH TAB.ER.12H PO SCH (20:00)
[2022-11-09] MEDS: LATANOPROST 0.005% OPHTH DROPS 2.5 ML BTL LEFT EYE SCH (20:01)
[2022-11-10] MEDS: methylPREDNISolone SOD SUCCI 125 MG/2 ML VIAL IV SCH ×4 (03:40→21:56)
[2022-11-10 06:28] LABS: Glucose,Whole Blood 212 mg/dL (70-110)
[2022-11-10] MEDS: INSULIN ASPART (NovoLOG) 100 UNIT/ML VIAL SQ SCH ×4 (06:54→21:57)
[2022-11-10] MEDS: ALBUTEROL HFA INHALER INHALATION SCH ×4 (07:41→21:30)
[2022-11-10] MEDS: SYMBICORT 160-4.5 MCG INHALER INHALATION SCH ×2 (07:41→21:31)
[2022-11-10] MEDS: TIOTROPIUM 2.5 MCG INHALER INHALATION SCH (07:42)
[2022-11-10] MEDS: APIXABAN 5 MG TAB PO SCH ×2 (08:48→21:57)
[2022-11-10] MEDS: CHOLECALCIFEROL 25 MCG (1000 IU) TABLET PO SCH (08:48)
[2022-11-10] MEDS: ASCORBIC ACID 500 MG TAB PO SCH (08:48)
[2022-11-10] MEDS: amLODIPine 10 MG TAB PO SCH (08:48)
[2022-11-10] MEDS: ZINC SULFATE 220 MG CAP PO SCH (08:48)
[2022-11-10] MEDS: PANTOPRAZOLE 40 MG TABLET PO SCH (08:48)
[2022-11-10] MEDS: SILDENAFIL 20 MG TAB PO SCH ×3 (08:48→21:57)
[2022-11-10] MEDS: METOPROLOL TARTRATE 12.5 MG TAB PO SCH ×2 (08:48→21:57)
[2022-11-10] MEDS: SODIUM CHLORIDE 0.9% 500 ML 500 ML IV SCH (09:08)
[2022-11-10 09:40] LABS: Basophils % (A) 0 %; Eosinophils % (A) 0 %; HCT 41.7 % (39.0-53.0); HGB 14.2 gm/dL (13.0-17.5); Lymphocytes # (A) 0.3 k/uL (1.0-4.8); Lymphocytes % (A) 2 %; MCH 33.2 pg (25.0-35.0); MCHC 33.9 g/dL (31.0-37.0); MCV 97.7 fL (80.0-100.0); Mean Platelet Volume 8.3; Monocytes # (A) 0.5 k/uL (0-1.0); Monocytes % (A) 4 %; Neutrophils # (A) 12.2 k/uL (1.3-7.7); Neutrophils % (A) 94 %; Platelet Count 300 k/uL (150-450); RBC 4.27 m/uL (4.30-5.90); RDW 12.2 % (11.5-15.5); WBC 13.1 k/uL (3.8-10.6)
[2022-11-10 10:25] LABS: Calcium 8.3 mg/dL (8.4-10.2); Potassium 4.5 mmol/L (3.5-5.1); Total Protein 5.7 g/dL (6.3-8.2)
[2022-11-10 11:52] LABS: Glucose,Whole Blood 257 mg/dL (70-110)
--- NOTE | 2022-11-10 12:46 | P.PN ---
Subjective This is a pleasant 82 years old male with past medical history of hypertension, hyperlipidemia, COPD Patient was recently discharged from this facility 10/26-10/31 for non-STEMI, coated infection and paroxysmal atrial fibrillation Patient currently sitting up in bed, fully awake and oriented, mildly tachypneic, no significant respiratory distress, he can talk freely with no much use of accessory respiratory muscles. Patient presents because of worsening dyspnea. He was on home oxygen but he could not tell how many liters. He denies chest pain. He has kind of dry coughing. No diarrhea abdominal pain or vomiting, no urinary complaints, no headache weakness or numbness. He denies smoking alcohol or illicit drugs He is requiring BiPAP therapy this morning, On the presentation shift patient is hypoxic saturating 87% on nonrebreather and she was placed on BiPAP and saturation improved to high 90s. Patient is tachypneic, 22-25 breaths per minute That showed mild leukocytosis of 11.6. Rest of CBC, INR is unremarkable. Creatinine normal 0.6. Potassium 3.3. Carbon dioxide 20. Lactic acid elevated 2.7 Evidence with hypocalcemia at 5.9. Elevated troponin 0.06 and 0.05, compared to normal troponin upon discharge last time and about 10 days ago at 0.037 and 0.034 Coronavirus detected while the flow was a and V are negative EKG showed normal sinus rhythm at [address]-T changes Chest x-ray: Pulmonary infiltrate is increased compared to last exam and consistent with worsening pneumonia Mildly elevated troponin most likely secondary to Covid infection and/or CHF In the emergency room patient received breathing treatment and Solu-Medrol he was admitted with pulmonary team consult 11/10/2022 patient in the general medical floor, is relaxed with mild tachypnea, no use of expiratory muscles Distal on high flow nasal cannula was saturating 92%, and running at 55 L/m with FiO2 of 54. Creatinine stable, looks like patient has evidence of chronic kidney disease Levemir 5 units daily secondary to steroid effect Continue with multiple vitamin and Eliquis Objective - Vital Signs Vital signs: Vital Signs Temp 97.2 F L 11/10/22 11:59 Pulse 60 11/10/22 11:59 Resp 16 11/10/22 11:59 BP 121/71 11/10/22 11:59 Pulse Ox 92 L 11/10/22 11:59 FiO2 54 11/10/22 11:59 Intake & Output 11/09/22 11/10/22 11/10/22 18:59 06:59 18:59 Intake Total 364 118 Output Total 0 475 Balance 364 -475 118 Intake: IV 10 Invasive Line 1 5 Invasive Line 2 5 Oral 354 118 Output: Urine 475 Stool 0 Other: Voiding Method Urinal Urinal Urinal # Voids 1 1 # Bowel Movements 1 - Exam GENERAL: The patient is alert and oriented x3, not in any acute distress. Well developed, well nourished. HEENT: Pupils are round and equally reacting to light. EOMI. No scleral icterus. No conjunctival pallor. Normocephalic, atraumatic. No pharyngeal erythema. No thyromegaly. CARDIOVASCULAR: S1 and S2 present. No murmurs, rubs, or gallops. -PULMONARY: Chest is clear to auscultation, mild tachypnea, Scattered wheezing and crepitation ABDOMEN: Soft, nontender, nondistended, normoactive bowel sounds. No palpable organomegaly. MUSCULOSKELETAL: No joint swelling or deformity. EXTREMITIES: No cyanosis, clubbing, or pedal edema. NEUROLOGICAL: Gross neurological examination did not reveal any focal deficits. SKIN: No rashes. no petechiae. - Labs CBC & Chem 7: 11/10/22 08:16 11/10/22 08:16 Labs: Abnormal Lab Results - Last 24 Hours (Table) 11/09/22 11/09/22 11/10/22 Range/Units 16:24 19:39 06:26 WBC (3.8-10.6) k/uL RBC (4.30-5.90) m/uL Neutrophils # (1.3-7.7) k/uL Lymphocytes # (1.0-4.8) k/uL Sodium (137-145) mmol/L BUN (9-20) mg/dL Creatinine (0.66-1.25) mg/dL Glucose (74-99) mg/dL POC Glucose (mg/dL) 184 H 269 H 212 H (70-110) mg/dL Calcium (8.4-10.2) mg/dL ALT (4-49) U/L Total Protein (6.3-8.2) g/dL Albumin (3.5-5.0) g/dL 03/11/10/22 11/10/22 Range/Units 08:16 08:16 11:26 WBC 13.1 H (3.8-10.6) k/uL RBC 4.27 L (4.30-5.90) m/uL Neutrophils # 12.2 H (1.3-7.7) k/uL Lymphocytes # 0.3 L (1.0-4.8) k/uL Sodium 135 L (137-145) mmol/L BUN 45 H (9-20) mg/dL Creatinine 1.30 H (0.66-1.25) mg/dL Glucose 255 H (74-99) mg/dL POC Glucose (mg/dL) 257 H (70-110) mg/dL Calcium 8.3 L (8.4-10.2) mg/dL ALT 83 H (4-49) U/L Total Protein 5.7 L (6.3-8.2) g/dL Albumin 3.0 L (3.5-5.0) g/dL Assessment and Plan Assessment: Acute on chronic hypoxic respiratory failure Bilateral pulmonary infiltrates suspicious bilateral covid pneumonia,l, CHF felt less likely Hypertension Hyperlipidemia Paroxysmal atrial fibrillation on Eliquis chronic kidney disease stage III History of obstructive sleep apnea Recent history of cough with Peripheral neuropathy Plan: Continue with oxygen high flow nasal cannula continue with steroids, currently is on Solu-Medrol Pulmonary consult, cardiology consult Labs and medication were reviewed.. Continue same treatment. Continue with s ymptomatic treatment. Resume home medication. Monitor labs and vitals. DVT and GI prophylaxis. Further recommendations as per clinical course of the patient DVT prophylaxis:Eliquis GI Prophylaxis: Ppi PT/Deferred prognosis is guarded
[2022-11-10] MEDS: INSULIN DETEMIR (LEVEMIR) 100 UNIT/ML SYR SQ SCH (14:08)
--- NOTE | 2022-11-10 15:52 | P.PN ---
Subjective Progress Note Date: 11/10/22 Principal diagnosis: Shortness of breath. Acute on chronic hypoxic respiratory failure and COVID-19 pneumonia This is an 82-year-old white male with history of interstitial lung d isease/pulmonary fibrosis, hypertension, COPD, and the patient was recently admitted to [facility] on 10/26/2022 and he was discharged on non-ST elevation myocardial infarction and COVID-19 infection with paroxysmal atrial fibrillation patient was discharged home on few liters nasal cannula, and he was doing well until yesterday, patient developed worsening shortness of breath, cough, he had no fever, no chills, no chest pain. His cough was described as dry cough. No nausea no vomiting no abdominal pain, no diarrhea. Patient was brought into the ER, and he was noted to be hypoxic. Even on a nonrebreather mask his O2 saturation was 87%. Patient is also noted tachypnea, placed on BiPAP, 100% FiO2, and he seemed to be almost BiPAP dependent desaturated easily off BiPAP in spite of using airvo. Chest x-ray showed slight worsening of his pulmonary infiltrates and interstitial findings from previous examination. However he had a relatively normal BNP level, and his pro-calcitonin level is pending. D-dimer was elevated at 10, however the patient has been on eliquis. Questioning compliance, hence I'm recommending a CT angiogram of the chest to be done today. Patient tested again positive for COVID-19 with positive PCR, and he will be placed on the COVID-19 cocktail, may consider adding Baricitinib for this patient if his pro-calcitonin level is normal. Otherwise may consider adding antibiotics if his pro-calcitonin level is abnormal. In the meantime the patient will be placed on bronchodilators, steroids, COVID-19 cocktail, and he will be admitted to the ICU considering the patient is quite hypoxic and requiring BiPAP on the percent FiO2 On his recent admission, patient was managed by Dr. Neely, we were not consulted on this patient during his admission in spite of the fact that the patient is known to have history of interstitial lung disease, and he normally sees Dr. Diaz on a regular basis. Patient didn't require discharged on oxygen at 4 L/m. And presently now he is back to the hospital with a much worsening picture and worsening hypoxia. Reevaluated today on 11/07/2022, patient remains in the ICU, remains on BiPAP with IPAP of 12 and EPAP of 6 and FiO2 is 80%. Patient tolerated 2 hours of high flow and high FiO2 airvo yesterday. His CT angiogram of the chest showed no evidence of pulmonary embolism it did show however interstitial lung disease/pulmonary fibrosis, and groundglass opacities bilaterally. His pro-c alcitonin level came back normal, hence I will go ahead and start the patient on Baricitinib. Discussed CODE STATUS with the patient, patient is DO NOT RESUSCITATE CODE STATUS as per his own wishes. WBC count today is 14 hemoglobin is 15 electrolytes are normal d-dimer was done yesterday. But again he had a negative CT angiogram of the chest pro-calcitonin is 0.07. LDH was 131. And C-reactive protein is 2.8 chest x-ray is basically the same. There is evidence of interstitial lung disease and superimposed bilateral infiltrates Reevaluated today on 11/08/2022, patient remains in the ICU, he is now on airvo at 60 L flow and 90% FiO2 O2 saturation is in the mid 90s. Slight improvement, continues to have shortness of breath with any activity. And the patient desaturate easily. Patient has severe interstitial lung disease and superimposed COVID-19 pneumonia. And he has history of chronic hypoxic or for failure to begin with. At any rate slight improvement clinically and I plan to transfer the patient out of the ICU to a regular medical floor. WBC count is 15.8 hemoglobin is 13.8 BUN is 54 creatinine 1.14, chest x-ray is basically the same, consistent with interstitial lung disease and superimposed acute infiltrate related to COVID-19 pneumonia Reevaluated today on 11/09/2022, patient is basically about the same, remains on relatively high FiO2 and high flow via airvo he is on a regular medical floor today. Patient is on 70% FiO2 and 55 L flow, O2 sats is 92%. Patient is complaining of some shortness of breath, occasional cough, daughter is at bedside, and updated on his condition. Basic metabolic profile is normal BUN is 54 creatinine 1.23, CBC is relatively normal. Discussed his Baricitinib with pharmacist today, and preferred to hold Baricitinib for now since his lymphocyte count is dropping added 0.11, cut off is 0.2. Progress note dated 11/10/2022. The patient is seen today in room 354. He remains on AIRVO, at 55 L/m, and 55% FiO2. He is getting saline at 20 mL an hour. Today's labs include a white count of 13.1, hemoglobin 14.2, hematocrit 41.7, and a normal platelet count. Sodium 135, potassium 4.5, chlorides 101, CO2 26, BUN 45, with a creatinine of 1.3. The patient states that he is no better, and no worse. I spoke to both daughters today. Apparently the family was considering hospice. I did have the nurse try to place him on 5 L of oxygen, to see if he could possibly be discharged home with reasonable saturations. 5 L saturation was 89%. Chest x- ray shows diffuse chronic interstitial changes. Objective - Vital Signs Vital signs: Vital Signs Temp 97.2 F L 11/10/22 11:59 Pulse 60 11/10/22 11:59 Resp 20 11/10/22 15:13 BP 121/71 11/10/22 11:59 Pulse Ox 89 L 11/10/22 15:13 FiO2 54 11/10/22 11:59 Intake & Output 11/09/22 11/10/22 11/10/22 18:59 06:59 18:59 Intake Total 364 658 Output Total 0 475 200 Balance 364 -475 458 Intake: IV 10 Invasive Line 1 5 Invasive Line 2 5 Oral 354 658 Output: Urine 475 200 Stool 0 Other: Voiding Method Urinal Urinal Urinal # Voids 1 1 1 # Bowel Movements 1 - Exam No acute distress, oriented 3. Mild conversational dyspnea. HEENT examination is grossly unremarkable. Neck supple. Full range of motion. No adenopathy thyromegaly or neck vein distention. Cardiovascular examination reveals regular rhythm rate. S1-S2 normal. No S3 or S4. No discernible murmur noted. Heart rate is 79 bpm. Lungs reveal diffuse bibasilar crackles. No wheezes or rhonchi. Breath sounds equal. Abdomen soft bowel sounds are heard. No masses or tenderness. Extremities are intact. No cyanosis clubbing or edema. Skin is without rash or lesion. Neurologic examination is brief but nonfocal. - Labs CBC & Chem 7: 11/10/22 08:16 11/10/22 08:16 Labs: Abnormal Lab Results - Last 24 Hours (Table) 11/09/22 11/09/22 11/10/22 Range/Units 16:24 19:39 06:26 WBC (3.8-10.6) k/uL RBC (4.30-5.90) m/uL Neutrophils # (1.3-7.7) k/uL Lymphocytes # (1.0-4.8) k/uL Sodium (137-145) mmol/L BUN (9-20) mg/dL Creatinine (0.66-1.25) mg/dL Glucose (74-99) mg/dL POC Glucose (mg/dL) 184 H 269 H 212 H (70-110) mg/dL Calcium (8.4-10.2) mg/dL ALT (4-49) U/L Total Protein (6.3-8.2) g/dL Albumin (3.5-5.0) g/dL 11/10/22 11/10/22 11/10/22 Range/Units 08:16 08:16 11:26 WBC 13.1 H (3.8-10.6) k/uL RBC 4.27 L (4.30-5.90) m/uL Neutrophils # 12.2 H (1.3-7.7) k/uL Lymphocytes # 0.3 L (1.0-4.8) k/uL Sodium 135 L (137-145) mmol/L BUN 45 H (9-20) mg/dL Creatinine 1.30 H (0.66-1.25) mg/dL Glucose 255 H (74-99) mg/dL POC Glucose (mg/dL) 257 H (70-110) mg/dL Calcium 8.3 L (8.4-10.2) mg/dL ALT 83 H (4-49) U/L Total Protein 5.7 L (6.3-8.2) g/dL Albumin 3.0 L (3.5-5.0) g/dL Assessment and Plan Assessment: Acute on chronic hypoxemic respiratory failure, multifactorial, in part related to possible coronavirus-associated pneumonia, and chronic diffuse interstitial lung disease/pulmonary fibrosis. Elevated inflammatory markers, consistent with coronavirus infection. Chronic atrial fibrillation. Benign essential hypertension. Hyperlipidemia. Peripheral neuropathy. Plan: Plan dated 11/10/2022. The patient appears to be about the same. He was on AIRVO at 55 L/m with an FiO2 of 55%. The family is considering hospice. The patient is a DO NOT RESUSCITATE patient, and would not want mechanical ventilation. We are going to have a nurse attempt to place some oxygen on the patient, high flow, to see if he could possibly be discharged home on 5 L. In addition, the patient can restart his baricitinib. We will continue to follow make recommendations along the way. I did talk to both daughters, who are at the bedside. Time with Patient: Less than 30
[2022-11-10] MEDS: BARICITINIB 2 MG TABLET PO SCH (16:06)
[2022-11-10 16:43] LABS: Glucose,Whole Blood 226 mg/dL (70-110)
[2022-11-10 20:33] LABS: Glucose,Whole Blood 243 mg/dL (70-110)
[2022-11-10] MEDS: ATORVASTATIN 10 MG TAB PO SCH (21:57)
[2022-11-10] MEDS: guaiFENesin-DM 600/30MG 1 EACH TAB.ER.12H PO SCH (21:57)
[2022-11-10] MEDS: LATANOPROST 0.005% OPHTH DROPS 2.5 ML BTL LEFT EYE SCH (21:58)
[2022-11-11] MEDS: methylPREDNISolone SOD SUCCI 125 MG/2 ML VIAL IV SCH ×4 (03:30→21:02)
[2022-11-11 05:44] LABS: Glucose,Whole Blood 186 mg/dL (70-110)
[2022-11-11] MEDS: INSULIN ASPART (NovoLOG) 100 UNIT/ML VIAL SQ SCH ×4 (06:56→21:02)
[2022-11-11] MEDS: INSULIN DETEMIR (LEVEMIR) 100 UNIT/ML SYR SQ SCH (06:56)
[2022-11-11] MEDS: SYMBICORT 160-4.5 MCG INHALER INHALATION SCH (08:08)
[2022-11-11] MEDS: TIOTROPIUM 2.5 MCG INHALER INHALATION SCH (08:08)
[2022-11-11] MEDS: ALBUTEROL HFA INHALER INHALATION SCH ×4 (08:08→19:44)
[2022-11-11] MEDS: APIXABAN 5 MG TAB PO SCH ×2 (09:24→21:02)
[2022-11-11] MEDS: amLODIPine 10 MG TAB PO SCH (09:24)
[2022-11-11] MEDS: ZINC SULFATE 220 MG CAP PO SCH (09:24)
[2022-11-11] MEDS: METOPROLOL TARTRATE 12.5 MG TAB PO SCH ×2 (09:24→21:02)
[2022-11-11] MEDS: CHOLECALCIFEROL 25 MCG (1000 IU) TABLET PO SCH (09:25)
[2022-11-11] MEDS: ASCORBIC ACID 500 MG TAB PO SCH (09:25)
[2022-11-11] MEDS: PANTOPRAZOLE 40 MG TABLET PO SCH (09:25)
[2022-11-11 09:45] LABS: Basophils % (A) 0 %; Eosinophils % (A) 0 %; HCT 43.8 % (39.0-53.0); HGB 14.9 gm/dL (13.0-17.5); Lymphocytes # (A) 0.2 k/uL (1.0-4.8); Lymphocytes % (A) 1 %; MCH 33.2 pg (25.0-35.0); MCHC 34.1 g/dL (31.0-37.0); MCV 97.5 fL (80.0-100.0); Mean Platelet Volume 8.2; Monocytes % (A) 5 %; Neutrophils # (A) 16.2 k/uL (1.3-7.7); Neutrophils % (A) 93 %; Platelet Count 309 k/uL (150-450); RBC 4.49 m/uL (4.30-5.90); RDW 12.2 % (11.5-15.5); WBC 17.5 k/uL (3.8-10.6)
[2022-11-11 10:12] LABS: Albumin 3.3 g/dL (3.5-5.0); Calcium 8.7 mg/dL (8.4-10.2); Potassium 4.4 mmol/L (3.5-5.1); Total Bilirubin 1.1 mg/dL (0.2-1.3)
[2022-11-11 11:44] LABS: Glucose,Whole Blood 307 mg/dL (70-110)
--- NOTE | 2022-11-11 12:48 | P.PN ---
Subjective Progress Note Date: 11/11/22 HISTORY OF PRESENT ILLNESS: This is a 82-year-old male with a past medical history significant for hypertension, hyperlipidemia, neuropathy, recent COVID, pulmonary fibrosis and former nicotine dependence. 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 Patient was seen prior admission 2 weeks ago for abnormal troponins and weakness. He had a cough and fevers and was found to have mildly elevated troponins. He was discharged home however had continued shortness breath and therefore presented back to the emergency department. He denies any chest pain or pressure. Denies any lightheadedness. He was found to be hypoxic and placed on BiPAP with improvement in oxygen saturations up to the mid 90s. Chest CTA was performed which showed no PE with low lung volumes and moderate to severe parenchymal fibrotic changes with progression from March 2021. White blood cell 11.6, hemoglobin 15.2, potassium 3.3, creatinine 0.6, troponin 0.06, proBNP 636, albumin 2.1. Previous echo showing EF 50-55% with enlarged right ventricle and elevated RVSP of 53. 11/08 Patient seen and examined. Patient admits to continued shortness breath relatively unchanged. His metoprolol has been held twice secondary to hypotension as well as bradycardia. He does have asymptomatic mild bradycardia with heart rates in the 50s. 11/11/2022 Cardiology reconsulted secondary to shortness of breath. Patient examined at the bedside. Patient is on high flow nasal cannula. No complaints of chest pain or pressure. PHYSICAL EXAM: VITAL SIGNS: Reviewed. GENERAL: Well-developed in no acute distress. NECK: Supple. No JVD or thyromegaly LUNGS: Respirations even and unlabored. Lungs diminished bilaterally. HEART: Regular rate and rhythm. S1 and S2 heard. EXTREMITIES: Normal range of motion. No clubbing or cyanosis. Peripheral pulses intact. No lower extremity edema ASSESSMENT: Acute on chronic hypoxic respiratory failure related to pulmonary fibrosis and recent COVID-19 infection Pulmonary hypertension likely group 3 related to hypoxia Right ventricular dilation noted on echo Non-STEMI, type 2 mechanism related to hypoxia Hypertension Hyperlipidemia Neuropathy Former nicotine dependence Paroxysmal Afib, on anticoagulation, currently sinus rhythm PLAN: Patient examined by Dr. Harrison. Patients SOB appears to be pulmonary in nature. Agree with pulmonary recommendations and treatment. Family deciding on Hospice. Await decision We will sign off. Please reconsult if needed. Nurse practitioner note has been reviewed by physician. Signing provider agrees with the documented findings, assessment, and plan of care. Objective - Vital Signs Vital signs: Vital Signs Temp 98.4 F 11/11/22 08:00 Pulse 90 11/11/22 08:00 Resp 20 11/11/22 09:32 BP 131/76 11/11/22 08:00 Pulse Ox 91 L 11/11/22 09:32 FiO2 54 11/10/22 11:59 Intake & Output 11/10/22 11/11/22 11/11/22 18:59 06:59 18:59 Intake Total 894 180 Output Total 200 900 Balance 694 -900 180 Intake: Oral 894 180 Output: Urine 200 900 Stool 0 Other: Voiding Method Urinal Urinal # Voids 1 3 # Bowel Movements 1 - Labs CBC & Chem 7: 11/11/22 09:08 11/11/22 09:08 Labs: Abnormal Lab Results - Last 24 Hours (Table) 11/10/22 11/10/22 11/11/22 Range/Units 16:40 20:29 05:43 WBC (3.8-10.6) k/uL Neutrophils # (1.3-7.7) k/uL Lymphocytes # (1.0-4.8) k/uL BUN (9-20) mg/dL Glucose (74-99) mg/dL POC Glucose (mg/dL) 226 H 243 H 186 H (70-110) mg/dL ALT (4-49) U/L Total Protein (6.3-8.2) g/dL Albumin (3.5-5.0) g/dL 11/11/22 11/11/22 11/11/22 Range/Units 09:08 09:08 11:43 WBC 17.5 H (3.8-10.6) k/uL Neutrophils # 16.2 H (1.3-7.7) k/uL Lymphocytes # 0.2 L (1.0-4.8) k/uL BUN 39 H (9-20) mg/dL Glucose 242 H (74-99) mg/dL POC Glucose (mg/dL) 307 H (70-110) mg/dL ALT 81 H (4-49) U/L Total Protein 6.0 L (6.3-8.2) g/dL Albumin 3.3 L (3.5-5.0) g/dL
[2022-11-11] MEDS: BARICITINIB 2 MG TABLET PO SCH (12:54)
[2022-11-11] MEDS: SILDENAFIL 20 MG TAB PO SCH ×3 (12:54→21:22)
--- NOTE | 2022-11-11 13:39 | P.PN ---
Subjective Progress Note Date: 11/11/22 Principal diagnosis: Shortness of breath. Acute on chronic hypoxic respiratory failure and COVID-19 pneumonia This is an 82-year-old white male with history of interstitial lung d isease/pulmonary fibrosis, hypertension, COPD, and the patient was recently admitted to [facility] on 10/26/2022 and he was discharged on non-ST elevation myocardial infarction and COVID-19 infection with paroxysmal atrial fibrillation patient was discharged home on few liters nasal cannula, and he was doing well until yesterday, patient developed worsening shortness of breath, cough, he had no fever, no chills, no chest pain. His cough was described as dry cough. No nausea no vomiting no abdominal pain, no diarrhea. Patient was brought into the ER, and he was noted to be hypoxic. Even on a nonrebreather mask his O2 saturation was 87%. Patient is also noted tachypnea, placed on BiPAP, 100% FiO2, and he seemed to be almost BiPAP dependent desaturated easily off BiPAP in spite of using airvo. Chest x-ray showed slight worsening of his pulmonary infiltrates and interstitial findings from previous examination. However he had a relatively normal BNP level, and his pro-calcitonin level is pending. D-dimer was elevated at 10, however the patient has been on eliquis. Questioning compliance, hence I'm recommending a CT angiogram of the chest to be done today. Patient tested again positive for COVID-19 with positive PCR, and he will be placed on the COVID-19 cocktail, may consider adding Baricitinib for this patient if his pro-calcitonin level is normal. Otherwise may consider adding antibiotics if his pro-calcitonin level is abnormal. In the meantime the patient will be placed on bronchodilators, steroids, COVID-19 cocktail, and he will be admitted to the ICU considering the patient is quite hypoxic and requiring BiPAP on the percent FiO2 On his recent admission, patient was managed by Dr. Neely, we were not consulted on this patient during his admission in spite of the fact that the patient is known to have history of interstitial lung disease, and he normally sees Dr. Diaz on a regular basis. Patient didn't require discharged on oxygen at 4 L/m. And presently now he is back to the hospital with a much worsening picture and worsening hypoxia. Reevaluated today on 11/07/2022, patient remains in the ICU, remains on BiPAP with IPAP of 12 and EPAP of 6 and FiO2 is 80%. Patient tolerated 2 hours of high flow and high FiO2 airvo yesterday. His CT angiogram of the chest showed no evidence of pulmonary embolism it did show however interstitial lung disease/pulmonary fibrosis, and groundglass opacities bilaterally. His pro-c alcitonin level came back normal, hence I will go ahead and start the patient on Baricitinib. Discussed CODE STATUS with the patient, patient is DO NOT RESUSCITATE CODE STATUS as per his own wishes. WBC count today is 14 hemoglobin is 15 electrolytes are normal d-dimer was done yesterday. But again he had a negative CT angiogram of the chest pro-calcitonin is 0.07. LDH was 131. And C-reactive protein is 2.8 chest x-ray is basically the same. There is evidence of interstitial lung disease and superimposed bilateral infiltrates Reevaluated today on 11/08/2022, patient remains in the ICU, he is now on airvo at 60 L flow and 90% FiO2 O2 saturation is in the mid 90s. Slight improvement, continues to have shortness of breath with any activity. And the patient desaturate easily. Patient has severe interstitial lung disease and superimposed COVID-19 pneumonia. And he has history of chronic hypoxic or for failure to begin with. At any rate slight improvement clinically and I plan to transfer the patient out of the ICU to a regular medical floor. WBC count is 15.8 hemoglobin is 13.8 BUN is 54 creatinine 1.14, chest x-ray is basically the same, consistent with interstitial lung disease and superimposed acute infiltrate related to COVID-19 pneumonia Reevaluated today on 11/09/2022, patient is basically about the same, remains on relatively high FiO2 and high flow via airvo he is on a regular medical floor today. Patient is on 70% FiO2 and 55 L flow, O2 sats is 92%. Patient is complaining of some shortness of breath, occasional cough, daughter is at bedside, and updated on his condition. Basic metabolic profile is normal BUN is 54 creatinine 1.23, CBC is relatively normal. Discussed his Baricitinib with pharmacist today, and preferred to hold Baricitinib for now since his lymphocyte count is dropping added 0.11, cut off is 0.2. Progress note dated 11/10/2022. The patient is seen today in room 354. He remains on AIRVO, at 55 L/m, and 55% FiO2. He is getting saline at 20 mL an hour. Today's labs include a white count of 13.1, hemoglobin 14.2, hematocrit 41.7, and a normal platelet count. Sodium 135, potassium 4.5, chlorides 101, CO2 26, BUN 45, with a creatinine of 1.3. The patient states that he is no better, and no worse. I spoke to both daughters today. Apparently the family was considering hospice. I did have the nurse try to place him on 5 L of oxygen, to see if he could possibly be discharged home with reasonable saturations. 5 L saturation was 89%. Chest x- ray shows diffuse chronic interstitial changes. Progress note dated 11/11/2022. The patient is again seen today in room 354. Yesterday he was on AIRVO. Today he is receiving high flow O2, at 11 L. He's not receiving any IV fluids. He remains on corticosteroids. I discontinued the Symbicort, an added Pulmicort, and formoterol, twice a day. We are hoping that the patient's oxygen requirements can be weaned down. Apparently hospice had a conversation with the family yesterday, and will have another conversation today. White count 17.5, hemoglobin, hematocrit, and platelet count were all normal. Sodium 138, potassium 4.4, chlorides 102, CO2 26, anion gap 10, BUN 39, creatinine 1.15. Objective - Vital Signs Vital signs: Vital Signs Temp 98.4 F 11/11/22 08:00 Pulse 90 11/11/22 08:00 Resp 20 11/11/22 09:32 BP 131/76 11/11/22 08:00 Pulse Ox 91 L 11/11/22 09:32 FiO2 54 11/10/22 11:59 Intake & Output 11/10/22 11/11/22 11/11/22 18:59 06:59 18:59 Intake Total 894 180 Output Total 200 900 Balance 694 -900 180 Intake: Oral 894 180 Output: Urine 200 900 Stool 0 Other: Voiding Method Urinal Urinal # Voids 1 3 # Bowel Movements 1 - Exam No acute distress, oriented 3. Mild conversational dyspnea. Currently on high flow nasal cannula. HEENT examination is grossly unremarkable. Neck supple. Full range of motion. No adenopathy thyromegaly or neck vein distention. Cardiovascular examination reveals regular rhythm rate. S1-S2 normal. No S3 or S4. No discernible murmur noted. Heart rate is 90 bpm. Lungs reveal diffuse bibasilar crackles. No wheezes or rhonchi. Breath sounds equal. Saturations are 91% on 11 L. Abdomen soft bowel sounds are heard. No masses or tenderness. Extremities are intact. No cyanosis clubbing or edema. Skin is without rash or lesion. Neurologic examination is brief but nonfocal. - Labs CBC & Chem 7: 11/11/22 09:08 11/11/22 09:08 Labs: Abnormal Lab Results - Last 24 Hours (Table) 11/10/22 11/10/22 11/11/22 Range/Units 16:40 20:29 05:43 WBC (3.8-10.6) k/uL Neutrophils # (1.3-7.7) k/uL Lymphocytes # (1.0-4.8) k/uL BUN (9-20) mg/dL Glucose (74-99) mg/dL POC Glucose (mg/dL) 226 H 243 H 186 H (70-110) mg/dL ALT (4-49) U/L Total Protein (6.3-8.2) g/dL Albumin (3.5-5.0) g/dL 11/11/22 11/11/22 11/11/22 Range/Units 09:08 09:08 11:43 WBC 17.5 H (3.8-10.6) k/uL Neutrophils # 16.2 H (1.3-7.7) k/uL Lymphocytes # 0.2 L (1.0-4.8) k/uL BUN 39 H (9-20) mg/dL Glucose 242 H (74-99) mg/dL POC Glucose (mg/dL) 307 H (70-110) mg/dL ALT 81 H (4-49) U/L Total Protein 6.0 L (6.3-8.2) g/dL Albumin 3.3 L (3.5-5.0) g/dL Assessment and Plan Assessment: Acute on chronic hypoxemic respiratory failure, multifactorial, in part related to possible coronavirus-associated pneumonia, and chronic diffuse interstitial lung disease/pulmonary fibrosis. Elevated inflammatory markers, consistent with coronavirus infection. Chronic atrial fibrillation. Benign essential hypertension. Hyperlipidemia. Peripheral neuropathy. Plan: Plan dated 11/10/2022. The patient appears to be about the same. He was on AIRVO at 55 L/m with an FiO2 of 55%. The family is considering hospice. The patient is a DO NOT RESUSCITATE patient, and would not want mechanical ventilation. We are going to have a nurse attempt to place some oxygen on the patient, high flow, to see if he could possibly be discharged home on 5 L. In addition, the patient can restart his baricitinib. We will continue to follow make recommendations along the way. I did talk to both daughters, who are at the bedside. Plan dated 11/11/2022. The oxygen should be titrated down. I believe we could accept saturations in the mid to high 80s. The patient does not appear to be particularly short of breath. The family is considering hospice. The patient is a DO NOT RESUSCITATE patient. Labs, x-rays, and medications are reviewed. We will continue to follo w the patient, and make recommendations along the way. Prognosis is poor. Time with Patient: Less than 30
[2022-11-11 16:17] LABS: Glucose,Whole Blood 256 mg/dL (70-110)
--- NOTE | 2022-11-11 19:31 | P.PN ---
Subjective This is a pleasant 82 years old male with past medical history of hypertension, hyperlipidemia, COPD Patient was recently discharged from this facility 10/26-10/31 for non-STEMI, coated infection and paroxysmal atrial fibrillation Patient currently sitting up in bed, fully awake and oriented, mildly tachypneic, no significant respiratory distress, he can talk freely with no much use of accessory respiratory muscles. Patient presents because of worsening dyspnea. He was on home oxygen but he could not tell how many liters. He denies chest pain. He has kind of dry coughing. No diarrhea abdominal pain or vomiting, no urinary complaints, no headache weakness or numbness. He denies smoking alcohol or illicit drugs He is requiring BiPAP therapy this morning, On the presentation shift patient is hypoxic saturating 87% on nonrebreather and she was placed on BiPAP and saturation improved to high 90s. Patient is tachypneic, 22-25 breaths per minute That showed mild leukocytosis of 11.6. Rest of CBC, INR is unremarkable. Creatinine normal 0.6. Potassium 3.3. Carbon dioxide 20. Lactic acid elevated 2.7 Evidence with hypocalcemia at 5.9. Elevated troponin 0.06 and 0.05, compared to normal troponin upon discharge last time and about 10 days ago at 0.037 and 0.034 Coronavirus detected while the flow was a and V are negative EKG showed normal sinus rhythm at [address]-T changes Chest x-ray: Pulmonary infiltrate is increased compared to last exam and consistent with worsening pneumonia Mildly elevated troponin most likely secondary to Covid infection and/or CHF In the emergency room patient received breathing treatment and Solu-Medrol he was admitted with pulmonary team consult 11/10/2022 patient in the general medical floor, is relaxed with mild tachypnea, no use of expiratory muscles Distal on high flow nasal cannula was saturating 92%, and running at 55 L/m with FiO2 of 54. Creatinine stable, looks like patient has evidence of chronic kidney disease Levemir 5 units daily secondary to steroid effect Continue with multiple vitamin and Eliquis 11/11/2022 Patient seen and examined today at bedside and select unit, daughter and grandson were at bedside, patient is fully awake and oriented,he is mildly tachypneic at rest. However he was on Lasix requirement of oxygen down to 9 L/m of oxygen via nasal cannula and apparently that is up to 11 L/m however still better than yesterday. And looks like the daughter and the patient were interested on hospice care, hospice consult was already placed for information purposes 2 days ago by my colleague. And looks like they talked to the hospice team and the patient himself is showing more interest in pursuing hospice care as he does not thinks he is improving as he is expecting. He is fully awake and oriented and he is able to make medical decision capacity, daughter at bedside also grasped about hospice care, all questions answered to their satisfaction. They wanted to wait for other sister before they make final decision. In the meantime we continue to treat the patient, and I agree with continuing Solu-Medrol 60 mg, Eliquis 5 mg, also with pulmonary team input is appreciated, patient was placed on barcitinib: His leukocytosis 17,000 secondary to steroid effect. Creatinine improving down to 1.1. Glucose better control still running at times more than 200. we will continue with tear of the patient Objective - Vital Signs Vital signs: Vital Signs Temp 98.4 F 11/11/22 08:00 Pulse 84 11/11/22 14:00 Resp 20 11/11/22 14:00 BP 132/64 11/11/22 12:00 Pulse Ox 93 L 11/11/22 12:00 FiO2 54 11/10/22 11:59 Intake & Output 11/10/22 11/11/22 11/11/22 18:59 06:59 18:59 Intake Total 894 180 Output Total 200 900 Balance 694 -900 180 Intake: Oral 894 180 Output: Urine 200 900 Stool 0 Other: Voiding Method Urinal Urinal # Voids 1 3 # Bowel Movements 1 - Exam GENERAL: The patient is alert and oriented x3, not in any acute distress. Well developed, well nourished. HEENT: Pupils are round and equally reacting to light. EOMI. No scleral icterus. No conjunctival pallor. Normocephalic, atraumatic. No pharyngeal erythema. No thyromegaly. CARDIOVASCULAR: S1 and S2 present. No murmurs, rubs, or gallops. -PULMONARY: Chest is clear to auscultation, mild tachypnea, Scattered wheezing and crepitation ABDOMEN: Soft, nontender, nondistended, normoactive bowel sounds. No palpable organomegaly. MUSCULOSKELETAL: No joint swelling or deformity. EXTREMITIES: No cyanosis, clubbing, or pedal edema. NEUROLOGICAL: Gross neurological examination did not reveal any focal deficits. SKIN: No rashes. no petechiae. - Labs CBC & Chem 7: 11/11/22 09:08 11/11/22 09:08 Labs: Abnormal Lab Results - Last 24 Hours (Table) 11/10/22 11/10/22 11/11/22 Range/Units 16:40 20:29 05:43 WBC (3.8-10.6) k/uL Neutrophils # (1.3-7.7) k/uL Lymphocytes # (1.0-4.8) k/uL BUN (9-20) mg/dL Glucose (74-99) mg/dL POC Glucose (mg/dL) 226 H 243 H 186 H (70-110) mg/dL ALT (4-49) U/L Total Protein (6.3-8.2) g/dL Albumin (3.5-5.0) g/dL 11/11/22 11/11/22 11/11/22 Range/Units 09:08 09:08 11:43 WBC 17.5 H (3.8-10.6) k/uL Neutrophils # 16.2 H (1.3-7.7) k/uL Lymphocytes # 0.2 L (1.0-4.8) k/uL BUN 39 H (9-20) mg/dL Glucose 242 H (74-99) mg/dL POC Glucose (mg/dL) 307 H (70-110) mg/dL ALT 81 H (4-49) U/L Total Protein 6.0 L (6.3-8.2) g/dL Albumin 3.3 L (3.5-5.0) g/dL Assessment and Plan Assessment: Acute on chronic hypoxic respiratory failure, slowly to improve Bilateral pulmonary infiltrates suspicious bilateral covid pneumonia,l, CHF felt less likely Hypertension Hyperlipidemia Paroxysmal atrial fibrillation on Eliquis chronic kidney disease stage III History of obstructive sleep apnea Recent history of cough with Peripheral neuropathy Plan: Continue with oxygen high flow nasal cannula continue with steroids, currently is on Solu-Medrol Continue with barcitinib as per pulmonary team Pulmonary consult, cardiology consult Patient and family are interested in hospice care Labs and medication were reviewed.. Continue same treatment. Continue with symptomatic treatment. Resume home medication. Monitor labs and vitals. DVT and GI prophylaxis. Further recommendations as per clinical course of the patient DVT prophylaxis:Eliquis GI Prophylaxis: Ppi PT/Deferred prognosis is guarded
[2022-11-11] MEDS: BUDESONIDE 1 MG/2 ML NEBU INHALATION SCH (19:49)
[2022-11-11] MEDS: FORMOTEROL FUMARATE 20 MCG/2 ML NEBU INHALATION SCH (19:49)
[2022-11-11 20:13] LABS: Glucose,Whole Blood 214 mg/dL (70-110)
[2022-11-11] MEDS: ATORVASTATIN 10 MG TAB PO SCH (21:02)
[2022-11-11] MEDS: guaiFENesin-DM 600/30MG 1 EACH TAB.ER.12H PO SCH (21:03)
[2022-11-11] MEDS: LATANOPROST 0.005% OPHTH DROPS 2.5 ML BTL LEFT EYE SCH (21:06)
[2022-11-12] MEDS: methylPREDNISolone SOD SUCCI 125 MG/2 ML VIAL IV SCH ×2 (04:18→09:09)
[2022-11-12] MEDS: SODIUM CHLORIDE 0.9% 500 ML 500 ML IV SCH ×2 (04:23→11:59)
[2022-11-12 05:59] LABS: Glucose,Whole Blood 183 mg/dL (70-110)
[2022-11-12] MEDS: INSULIN ASPART (NovoLOG) 100 UNIT/ML VIAL SQ SCH ×2 (06:03→12:00)
[2022-11-12] MEDS: INSULIN DETEMIR (LEVEMIR) 100 UNIT/ML SYR SQ SCH (06:03)
[2022-11-12] MEDS: TIOTROPIUM 2.5 MCG INHALER INHALATION SCH (07:41)
[2022-11-12] MEDS: ALBUTEROL HFA INHALER INHALATION SCH ×2 (07:41→11:35)
[2022-11-12] MEDS: FORMOTEROL FUMARATE 20 MCG/2 ML NEBU INHALATION SCH (07:42)
[2022-11-12] MEDS: BUDESONIDE 1 MG/2 ML NEBU INHALATION SCH (07:42)
[2022-11-12 09:03] LABS: Basophils % (A) 0 %; Eosinophils % (A) 0 %; HCT 41.8 % (39.0-53.0); HGB 14.2 gm/dL (13.0-17.5); Lymphocytes # (A) 0.2 k/uL (1.0-4.8); Lymphocytes % (A) 2 %; MCH 32.8 pg (25.0-35.0); MCHC 33.9 g/dL (31.0-37.0); MCV 96.7 fL (80.0-100.0); Mean Platelet Volume 8.4; Monocytes # (A) 0.6 k/uL (0-1.0); Monocytes % (A) 4 %; Neutrophils # (A) 13.4 k/uL (1.3-7.7); Neutrophils % (A) 94 %; Platelet Count 276 k/uL (150-450); RBC 4.33 m/uL (4.30-5.90); RDW 12.2 % (11.5-15.5); WBC 14.2 k/uL (3.8-10.6)
[2022-11-12 09:06] VITALS: RESP 18
[2022-11-12] MEDS: ASCORBIC ACID 500 MG TAB PO SCH (09:06)
[2022-11-12] MEDS: amLODIPine 10 MG TAB PO SCH (09:06)
[2022-11-12] MEDS: CHOLECALCIFEROL 25 MCG (1000 IU) TABLET PO SCH (09:06)
[2022-11-12] MEDS: APIXABAN 5 MG TAB PO SCH (09:06)
[2022-11-12] MEDS: ZINC SULFATE 220 MG CAP PO SCH (09:06)
[2022-11-12] MEDS: PANTOPRAZOLE 40 MG TABLET PO SCH (09:06)
[2022-11-12] MEDS: METOPROLOL TARTRATE 12.5 MG TAB PO SCH (09:06)
[2022-11-12 09:19] LABS: Calcium 8.5 mg/dL (8.4-10.2); Potassium 4.7 mmol/L (3.5-5.1); Total Bilirubin 1.2 mg/dL (0.2-1.3); Total Protein 5.6 g/dL (6.3-8.2)
[2022-11-12] MEDS: SILDENAFIL 20 MG TAB PO SCH (09:57)
[2022-11-12 11:44] LABS: Glucose,Whole Blood 206 mg/dL (70-110)
--- NOTE | 2022-11-12 12:04 | P.PN ---
Subjective Progress Note Date: 11/12/22 Principal diagnosis: Shortness of breath. Acute on chronic hypoxic respiratory failure and COVID-19 pneumonia This is an 82-year-old white male with history of interstitial lung d isease/pulmonary fibrosis, hypertension, COPD, and the patient was recently admitted to [facility] on 10/26/2022 and he was discharged on non-ST elevation myocardial infarction and COVID-19 infection with paroxysmal atrial fibrillation patient was discharged home on few liters nasal cannula, and he was doing well until yesterday, patient developed worsening shortness of breath, cough, he had no fever, no chills, no chest pain. His cough was described as dry cough. No nausea no vomiting no abdominal pain, no diarrhea. Patient was brought into the ER, and he was noted to be hypoxic. Even on a nonrebreather mask his O2 saturation was 87%. Patient is also noted tachypnea, placed on BiPAP, 100% FiO2, and he seemed to be almost BiPAP dependent desaturated easily off BiPAP in spite of using airvo. Chest x-ray showed slight worsening of his pulmonary infiltrates and interstitial findings from previous examination. However he had a relatively normal BNP level, and his pro-calcitonin level is pending. D-dimer was elevated at 10, however the patient has been on eliquis. Questioning compliance, hence I'm recommending a CT angiogram of the chest to be done today. Patient tested again positive for COVID-19 with positive PCR, and he will be placed on the COVID-19 cocktail, may consider adding Baricitinib for this patient if his pro-calcitonin level is normal. Otherwise may consider adding antibiotics if his pro-calcitonin level is abnormal. In the meantime the patient will be placed on bronchodilators, steroids, COVID-19 cocktail, and he will be admitted to the ICU considering the patient is quite hypoxic and requiring BiPAP on the percent FiO2 On his recent admission, patient was managed by Dr. Neely, we were not consulted on this patient during his admission in spite of the fact that the patient is known to have history of interstitial lung disease, and he normally sees Dr. Diaz on a regular basis. Patient didn't require discharged on oxygen at 4 L/m. And presently now he is back to the hospital with a much worsening picture and worsening hypoxia. Reevaluated today on 11/07/2022, patient remains in the ICU, remains on BiPAP with IPAP of 12 and EPAP of 6 and FiO2 is 80%. Patient tolerated 2 hours of high flow and high FiO2 airvo yesterday. His CT angiogram of the chest showed no evidence of pulmonary embolism it did show however interstitial lung disease/pulmonary fibrosis, and groundglass opacities bilaterally. His pro-c alcitonin level came back normal, hence I will go ahead and start the patient on Baricitinib. Discussed CODE STATUS with the patient, patient is DO NOT RESUSCITATE CODE STATUS as per his own wishes. WBC count today is 14 hemoglobin is 15 electrolytes are normal d-dimer was done yesterday. But again he had a negative CT angiogram of the chest pro-calcitonin is 0.07. LDH was 131. And C-reactive protein is 2.8 chest x-ray is basically the same. There is evidence of interstitial lung disease and superimposed bilateral infiltrates Reevaluated today on 11/08/2022, patient remains in the ICU, he is now on airvo at 60 L flow and 90% FiO2 O2 saturation is in the mid 90s. Slight improvement, continues to have shortness of breath with any activity. And the patient desaturate easily. Patient has severe interstitial lung disease and superimposed COVID-19 pneumonia. And he has history of chronic hypoxic or for failure to begin with. At any rate slight improvement clinically and I plan to transfer the patient out of the ICU to a regular medical floor. WBC count is 15.8 hemoglobin is 13.8 BUN is 54 creatinine 1.14, chest x-ray is basically the same, consistent with interstitial lung disease and superimposed acute infiltrate related to COVID-19 pneumonia Reevaluated today on 11/09/2022, patient is basically about the same, remains on relatively high FiO2 and high flow via airvo he is on a regular medical floor today. Patient is on 70% FiO2 and 55 L flow, O2 sats is 92%. Patient is complaining of some shortness of breath, occasional cough, daughter is at bedside, and updated on his condition. Basic metabolic profile is normal BUN is 54 creatinine 1.23, CBC is relatively normal. Discussed his Baricitinib with pharmacist today, and preferred to hold Baricitinib for now since his lymphocyte count is dropping added 0.11, cut off is 0.2. Progress note dated 11/10/2022. The patient is seen today in room 354. He remains on AIRVO, at 55 L/m, and 55% FiO2. He is getting saline at 20 mL an hour. Today's labs include a white count of 13.1, hemoglobin 14.2, hematocrit 41.7, and a normal platelet count. Sodium 135, potassium 4.5, chlorides 101, CO2 26, BUN 45, with a creatinine of 1.3. The patient states that he is no better, and no worse. I spoke to both daughters today. Apparently the family was considering hospice. I did have the nurse try to place him on 5 L of oxygen, to see if he could possibly be discharged home with reasonable saturations. 5 L saturation was 89%. Chest x- ray shows diffuse chronic interstitial changes. Progress note dated 11/11/2022. The patient is again seen today in room 354. Yesterday he was on AIRVO. Today he is receiving high flow O2, at 11 L. He's not receiving any IV fluids. He remains on corticosteroids. I discontinued the Symbicort, an added Pulmicort, and formoterol, twice a day. We are hoping that the patient's oxygen requirements can be weaned down. Apparently hospice had a conversation with the family yesterday, and will have another conversation today. White count 17.5, hemoglobin, hematocrit, and platelet count were all normal. Sodium 138, potassium 4.4, chlorides 102, CO2 26, anion gap 10, BUN 39, creatinine 1.15. Progress note dated 11/12/2022. The patient is again seen today in room 354. The patient's on high flow oxygen at 13 L. He's not receiving any IV fluids. According to the case advocate, the patient may decide to go hospice today. Currently, he's feeling about the same. Labs today include a white count 14.2, with a normal hemoglobin, hematocrit, and platelet count. Sodium 138, potassium 4.7, chlorides 104, CO2 27, BUN 40, creatinine 1.02. Albumin is 3. Objective - Vital Signs Vital signs: Vital Signs Temp 97.8 F 11/12/22 09:02 Pulse 67 11/12/22 09:02 Resp 18 11/12/22 09:02 BP 127/68 11/12/22 09:02 Pulse Ox 89 L 11/12/22 09:02 FiO2 54 11/10/22 11:59 Intake & Output 11/11/22 11/12/22 11/12/22 18:59 06:59 18:59 Intake Total 180 118 Output Total 450 175 Balance 180 -450 -57 Intake: Oral 180 118 Output: Urine 450 175 Other: Voiding Method Urinal # Voids 1 - Exam No acute distress, oriented 3. Mild conversational dyspnea. Currently on high flow nasal cannula, at 13 L. HEENT examination is grossly unremarkable. Neck supple. Full range of motion. No adenopathy thyromegaly or neck vein distention. Cardiovascular examination reveals regular rhythm rate. S1-S2 normal. No S3 or S4. No discernible murmur noted. Heart rate is 87 bpm. Lungs reveal diffuse bibasilar crackles. No wheezes or rhonchi. Breath sounds equal. Saturations are 89% on 13 L. Abdomen soft bowel sounds are heard. No masses or tenderness. Extremities are intact. No cyanosis clubbing or edema. Skin is without rash or lesion. Neurologic examination is brief but nonfocal. - Labs CBC & Chem 7: 11/12/22 07:43 11/12/22 07:43 Labs: Abnormal Lab Results - Last 24 Hours (Table) 11/11/22 11/11/22 11/12/22 Range/Units 16:16 20:11 05:57 WBC (3.8-10.6) k/uL Neutrophils # (1.3-7.7) k/uL Lymphocytes # (1.0-4.8) k/uL BUN (9-20) mg/dL Glucose (74-99) mg/dL POC Glucose (mg/dL) 256 H 214 H 183 H (70-110) mg/dL ALT (4-49) U/L Total Protein (6.3-8.2) g/dL Albumin (3.5-5.0) g/dL 11/12/22 11/12/22 11/12/22 Range/Units 07:43 07:43 11:42 WBC 14.2 H (3.8-10.6) k/uL Neutrophils # 13.4 H (1.3-7.7) k/uL Lymphocytes # 0.2 L (1.0-4.8) k/uL BUN 40 H (9-20) mg/dL Glucose 155 H (74-99) mg/dL POC Glucose (mg/dL) 206 H (70-110) mg/dL ALT 72 H (4-49) U/L Total Protein 5.6 L (6.3-8.2) g/dL Albumin 3.0 L (3.5-5.0) g/dL Assessment and Plan Assessment: Acute on chronic hypoxemic respiratory failure, multifactorial, in part related to possible coronavirus-associated pneumonia, and chronic diffuse interstitial lung disease/pulmonary fibrosis. Elevated inflammatory markers, consistent with coronavirus infection. Chronic atrial fibrillation. Benign essential hypertension. Hyperlipidemia. Peripheral neuropathy. Plan: Plan dated 11/10/2022. The patient appears to be about the same. He was on AIRVO at 55 L/m with an FiO2 of 55%. The family is considering hospice. The patient is a DO NOT RESUSCITATE patient, and would not want mechanical ventilation. We are going to have a nurse attempt to place some oxygen on the patient, high flow, to see if he could possibly be discharged home on 5 L. In addition, the patient can restart his baricitinib. We will continue to follow make recommendations along the way. I did talk to both daughters, who are at the bedside. Plan dated 11/11/2022. The oxygen should be titrated down. I believe we could accept saturations in the mid to high 80s. The patient does not appear to be particularly short of breath. The family is considering hospice. The patient is a DO NOT RESUSCITATE patient. Labs, x-rays, and medications are reviewed. We will continue to follow the patient, and make recommendations along the way. Prognosis is poor. Plan dated 11/12/2022. The patient is currently on 13 L high flow oxygen. His overall condition has continued to deteriorate. The patient's receiving all appropriate medications. Apparently the family has decided that hospice is a right thing for this patient. I think that is reasonable. We certainly given the patient a good chance to get better. He's been here in the hospital now for 7 days, without any improvement. Prognosis is poor. Time with Patient: Less than 30
[2022-11-12 12:17] VITALS: BP 137/72; PULSE 64; TEMP 97.9
--- NOTE | 2022-11-12 20:26 | P.DS ---
Providers Date of admission: 11/05/22 20:54 Attending physician: Radha Parnell Consults: 11/05/22 20:52 Consult Physician Urgent Consulting Provider: Raz Kimble Consult Reason/Comments: bipap dependant resp failure, covid 19 Do you want consulting provider notified?: Yes Primary care physician: Ute Zuluaga Hospital Course: Diagnoses: Acute on chronic hypoxic respiratory failure, with lack of improvement Bilateral pulmonary infiltrates suspicious bilateral covid pneumonia,l, CHF felt less likely Hypertension Hyperlipidemia Paroxysmal atrial fibrillation on Eliquis chronic kidney disease stage III History of obstructive sleep apnea Peripheral neuropathy Hospital course: This is a pleasant 82 years old male with past medical history of hypertension, hyperlipidemia, COPD Patient was recently discharged from this facility 10/26-10/31 for non-STEMI, coated infection and paroxysmal atrial fibrillation Patient was admitted with respiratory symptoms found to have acute COPD exacerbation with severe bilateral Covid infection and pneumonia with acute hypoxic respiratory failure, since admission he required high doses of oxygen since admission, the last few days was requiring around 55 L/m of oxygen with FiO2 more than 60%, however over the last 2 days afterward to I started taking care of him, he discussed with the attending before meals and he got interested with hospice care, he was discussed with the family yesterday and today, the patient was awake and alert and he confirmed to me he wants to proceed with has cleared and that family are agreeable with his decision, Mehul Lombardi spoke with the hospice nurse Margie and she confirmed to me patient decision and that he signed the paper and that his daughter in the site the papers on his behalf as well. And they're agreeable with plan and his decision. However patient was been followed by pulmonary team service and received treatment including Solu-Medrol and antiviral therapy as well as multiple vitamins and his Eliquis. Despite all treatment patient was not making progress as is expected length he was still significantly tachypneic and anxious and that his prognosis was poor and that I think his life expectancy was less than 6 months. Based on that patient was discharged under hospice care and to home based upon his request, plan of care discussed with hospice nurse Margie Patient will be discharged and prolonged taper steroids as this will help his discomfort as well. Also be discharged and other medication based upon patient request. Problems and management plan were discussed with the patient and he verbalized understanding and acceptance Patient was is going to be discharged home with hospice, patient was instructed to follow up with PCP in one week and he agrees Physical exam Gen: patient is a AAOx3, no distress CVS: S1-S2, RRR, no murmur -Lungs: patient is very tachypneic with bilateral wheezing and crepitation moderately Abdomen: soft, no distention, no tenderness, positive bowel sounds Extremity: no leg edema or induration Time spent more than 35 minutes Patient Condition at Discharge: Serious Plan - Discharge Summary Discharge Rx Participant: No New Discharge Prescriptions: New Sildenafil [Revatio] 20 mg PO TID #90 tab Tiotropium 2.5 Mcg/Puff [Spiriva Respimat 2.5 Mcg] 1 puff INHALATION RT-DAILY #1 each Metoprolol Tartrate [Lopressor] 12.5 mg PO BID #60 tab predniSONE 10 mg PO DIRECTED #150 tab Continue amLODIPine [Norvasc] 10 mg PO DAILY Latanoprost [Xalatan 0.005%] 1 drop LEFT EYE HS guaiFENesin-DM 600/30MG [Mucinex Dm] 1 tab PO HS Apixaban [Eliquis] 5 mg PO BID #60 tab Acetaminophen Tab [Tylenol] 650 mg PO Q6HR PRN tab PRN Reason: Fever and/ or Mild Pain (1-3) Ascorbic Acid [Vitamin C] 500 mg PO DAILY #30 tab Cholecalciferol [Vitamin D3 (25 Mcg = 1000 Iu)] 50 mcg PO DAILY #30 tab Simvastatin [Zocor] 20 mg PO HS Gabapentin [Neurontin] 100 mg PO TID PRN #6 cap PRN Reason: Pain Zinc Sulfate [Orazinc] 220 mg PO DAILY #30 cap Budesonide-Formot 160-4.5 Mcg [Symbicort 160-4.5 Mcg Inhaler] 2 puff INHALAT ION RT-BID #1 each predniSONE [Deltasone] See Taper PO DAILY Omeprazole 40 mg PO DAILY #30 cap Changed Albuterol Inhaler [Ventolin Hfa Inhaler] 2 puff INHALATION RT-QID PRN #1 each PRN Reason: Shortness Of Breath Or Wheezing Discontinued Metoprolol Tartrate [Lopressor] 25 mg PO TID #90 tab Discharge Medication List Latanoprost [Xalatan 0.005%] 1 drop LEFT EYE HS 04/07/21 [History] Simvastatin [Zocor] 20 mg PO HS 04/07/21 [History] amLODIPine [Norvasc] 10 mg PO DAILY 04/07/21 [History] guaiFENesin-DM 600/30MG [Mucinex Dm] 1 tab PO HS 10/26/22 [History] Apixaban [Eliquis] 5 mg PO BID #60 tab 10/27/22 [Rx] Acetaminophen Tab [Tylenol] 650 mg PO Q6HR PRN tab 10/31/22 [Rx] Ascorbic Acid [Vitamin C] 500 mg PO DAILY #30 tab 10/31/22 [Rx] Budesonide-Formot 160-4.5 Mcg [Symbicort 160-4.5 Mcg Inhaler] 2 puff INHALATION RT-BID #1 each 10/31/22 [Rx] Cholecalciferol [Vitamin D3 (25 Mcg = 1000 Iu)] 50 mcg PO DAILY #30 tab 10/31/22 [Rx] Gabapentin [Neurontin] 100 mg PO TID PRN #6 cap 10/31/22 [Rx] Zinc Sulfate [Orazinc] 220 mg PO DAILY #30 cap 10/31/22 [Rx] predniSONE [Deltasone] See Taper PO DAILY 11/05/22 [History] Albuterol Inhaler [Ventolin Hfa Inhaler] 2 puff INHALATION RT-QID PRN #1 each 11/12/22 [Rx] Metoprolol Tartrate [Lopressor] 12.5 mg PO BID #60 tab 11/12/22 [Rx] Omeprazole 40 mg PO DAILY #30 cap 11/12/22 [Rx] Sildenafil [Revatio] 20 mg PO TID #90 tab 11/12/22 [Rx] Tiotropium 2.5 Mcg/Puff [Spiriva Respimat 2.5 Mcg] 1 puff INHALATION RT-DAILY #1 each 11/12/22 [Rx] predniSONE 10 mg PO DIRECTED #150 tab 11/12/22 [Rx] Follow up Appointment(s)/Referral(s): Margareth Unger MD [Primary Care Provider] - 1-2 days (Your appointment has been made for November 14 @0930 AM.) Patient Instructions/Handouts: Pulmonary Edema (DC), Using Oxygen at Home (DC), Hypoxia (GEN) Discharge Disposition: HOME WITH HOSPICE
== END 2022-11-12 13:20 | disposition hospice, home (50) | DRG 177 ==
LOC: EC 18:40 → 3SCARD 20:54 → 2SICU 11-06 10:23 → 3SCARD 11-08 14:53
PROVIDERS: ADMIT Hospitalist; ATTEND Hospitalist
PROC: 5A09357 Assistance with Respiratory Ventilation, Less than 24 Consecutive Hours, Continuous Positive Airway Pressure (ICD-10-PCS; 2022-11-05)
PROC: XW0DXM6 Introduction of Baricitinib into Mouth and Pharynx, External Approach, New Technology Group 6 (ICD-10-PCS; principal; 2022-11-07)
DX: U07.1 COVID-19 (principal); I21.4 Non-ST elevation (NSTEMI) myocardial infarction; I21.A1 Myocardial infarction type 2; J12.82 Pneumonia due to coronavirus disease 2019; J96.21 Acute and chronic respiratory failure with hypoxia; J44.0 Chronic obstructive pulmonary disease with (acute) lower respiratory infection; I12.9 Hypertensive chronic kidney disease with stage 1 through stage 4 chronic kidney disease, or unspecified chronic kidney disease; G47.33 Obstructive sleep apnea (adult) (pediatric); E83.51 Hypocalcemia; M19.90 Unspecified osteoarthritis, unspecified site; G62.9 Polyneuropathy, unspecified; E78.5 Hyperlipidemia, unspecified; Z51.5 Encounter for palliative care; Z66 Do not resuscitate; N18.30 Chronic kidney disease, stage 3 unspecified; T38.0X5A Adverse effect of glucocorticoids and synthetic analogues, initial encounter; J84.112 Idiopathic pulmonary fibrosis; I48.0 Paroxysmal atrial fibrillation; I27.20 Pulmonary hypertension, unspecified; Z87.891 Personal history of nicotine dependence; Z99.81 Dependence on supplemental oxygen; H40.9 Unspecified glaucoma; Z79.51 Long term (current) use of inhaled steroids; Z88.0 Allergy status to penicillin; Z88.2 Allergy status to sulfonamides; Z79.01 Long term (current) use of anticoagulants
CPT/HCPCS: 36415; 71045; 71275; 80048; 80053; 83605; 83615; 83880; 84145; 84484; 85025; 85379; 85610; 85730; 86140; 87636; 93005; 94640; 94660; 94760